=== PATIENT | male | born 1970 | race American Indian/Alaskan Native ===

== ENCOUNTER 2017-02-06 02:48 | Inpatient (IN) | payer MEDICARE, OTHER ==
--- NOTE | 2017-02-06 02:51 | ED PDOC ---
Arrival/HPI - General Time Seen by Provider: 02/06/17 02:50 Historian: Patient, Other (transfer charts ) - History of Present Illness Narrative History of Present Illness (Text): 02/06/17 02:52 Harlan Floyd is a 46 year old female who presents to the emergency department from [facility] via ambulance for admission to the hospital for depression and suicidal ideation. Currently states she still feels depression, but denies any suicidal ideation. Denies any other somatic complaints. Symptom Onset: Gradual Symptom Course: Unchanged Activities at Onset: Light Past Medical History - Provider Review Nursing Documentation Reviewed: Yes Family/Social History - Physician Review Nursing Documentation Reviewed: Yes Family/Social History: No Known Family HX Allergies/Home Meds Allergies/Adverse Reactions: Allergies No Known Allergies Allergy (Verified 02/06/17 02:58) Home Medications: Home Meds Medication Instructions Recorded Confirmed No Known Home Med 02/06/17 02/06/17 Review of Systems - Physician Review All systems were reviewed & negative as marked: Yes - Review of Systems Constitutional: Normal. absent: Fatigue, Fevers Respiratory: Normal. absent: SOB, Cough, Sputum Cardiovascular: Normal. absent: Chest Pain Gastrointestinal: Normal. absent: Abdominal Pain, Diarrhea, Nausea, Vomiting Genitourinary Female: Normal Psychiatric: Depression. absent: Suicidal Ideation Physical Exam Vital Signs Reviewed: Yes Vital Signs Temp Pulse Resp BP Pulse Ox 02/06/17 02:58 98.0 F 57 L 18 99/52 L 96 Temperature: Afebrile Blood Pressure: Normal Pulse: Regular Respiratory Rate: Normal Appearance: Positive for: Well-Appearing, Non-Toxic, Comfortable Pain Distress: None Mental Status: Positive for: Alert and Oriented X 3 - Systems Exam Head: Present: Atraumatic, Normocephalic Pupils: Present: PERRL Conjunctiva: Present: Normal Respiratory/Chest: Present: Clear to Auscultation, Good Air Exchange. No: Respiratory Distress, Accessory Muscle Use Cardiovascular: Present: Regular Rate and Rhythm, Normal S1, S2. No: Murmurs Abdomen: Present: Normal Bowel Sounds. No: Tenderness, Distention, Peritoneal Signs Upper Extremity: Present: Normal Inspection. No: Cyanosis, Edema Lower Extremity: Present: Normal Inspection. No: Edema Neurological: Present: GCS=15, CN II-XII Intact, Speech Normal Skin: Present: Warm, Dry, Normal Color. No: Rashes Psychiatric: Present: Alert, Oriented x 3, Depressed Mood. No: Suicidal Ideation, Homicidal Ideation Medical Decision Making ED Course and Treatment: 02/06/17 03:01 Impression: A 46 year old female who presents to the emergency department from [facility] for psychiatric admission. Patient medically cleared here in emergency department for transfer. Progress Notes: Will admit patient under Dr. Owen's service. - Scribe Statement The provider has reviewed the documentation as recorded by the Sarai Gonzales Provider Attestation: All medical record entries made by the Sarai were at my direction and personally dictated by me. I have reviewed the chart and agree that the record accurately reflects my personal performance of the history, physical exam, medical decision making, and the department course for this patient. I have also personally directed, reviewed, and agree with the discharge instructions and disposition. Disposition/Present on Arrival - Present on Arrival Any Indicators Present on Arrival: No History of DVT/PE: No History of Uncontrolled Diabetes: No Urinary Catheter: No History of Decub. Ulcer: No History Surgical Site Infection Following: None - Disposition Have Diagnosis and Disposition been Completed?: Yes Diagnosis: Depression Disposition: HOSPITALIZED Disposition Time: 02:58 Patient Plan: Admission Patient Problems: Current Active Problems Problem Status Onset Depression Acute Condition: STABLE
[2017-02-06 03:12] VITALS: O2SAT 96
[2017-02-06] MEDS ORDERED: Magnesium Hydroxide Susp 30 ml UD PO PRN (03:43)
[2017-02-06] MEDS ORDERED: Alum-Mag Hydrox-Simethicone Susp (30 mL) PO PRN (03:43)
--- NOTE | 2017-02-06 04:17 | PCM.BM ---
<Doron Tee - Last Filed: 02/06/17 04:16> Treatment Plan Problems - Problems identified on initial assessmt Hopelessness Date Initiated: 02/06/17 Time Initiated: 04:17 Assessment reference: NA Status: Active Priority: 1 Worthlessness Date Initiated: 02/06/17 Time Initiated: 04:16 Assessment reference: NA Status: Active Priority: 2 Anxiety Date Initiated: 02/06/17 Time Initiated: 04:16 Assessment reference: NA Status: Active Priority: 3 Nutrition: More than body requirements Date Initiated: 02/06/17 Time Initiated: 04:16 Assessment reference: NA Status: Active Priority: 4 Treatment assets and liabiliti Patient Assests: cooperative, ADL independent, negotiates basic needs, cognitively intact Patient Liabilities: financial problems, poor support system - Milieu Protocol Maintain good personal hygiene: daily Encourage regular showers Maintain personal safety: every shift Educate patient to report safety concerns to staff, every shift Monitor environment for contraband/sharps Medication safety: Monitor for expected outcome, potential side effects: every shift, Assess barriers to learning: every shift, Assess readiness for medication education: every shift Discharge/Continuing Care - Education Needs Education Needs: Patient Medication, Patient Diagnosis/Disease Process, Patient Coping Skills, Patient Nutrition - Discharge Discharge Criteria: Tolerates medication w/o severe side effects <Doris Don - Last Filed: 02/06/17 15:45> Family Contact Family involvement: Famliy/SO not involved <Lexie Jolley - Last Filed: 02/06/17 17:54> - Diagnosis (1) Bipolar II disorder Status: Acute Interventions: 02/06/17 17:53 Psychoeducation Psychopharmacology/adjustment of medications as needed/ monitoring possible side effects Monitor blood level of mood stabilizers Evaluate pt on daily basis Compliance with medications and follow up appointments Suicide and homicide risk assessment and prevention, coping strategies, safety plan Relapse prevention Reduction of symptoms Improve functional status Family intervention As outpatient: cognitive behavioral therapy (2) Alcohol abuse Status: Acute Interventions: 02/06/17 17:53 Monitoring withdrawal symptoms Medical detoxification Pharmacotherapy for alcohol/benzos/opioid dependence Maintaining sobriety Relapse prevention Possible rehabilitation Motivational interviewing 12-step programs: AA meetings (3) NANCY (generalized anxiety disorder) Status: Acute Interventions: 02/06/17 17:53 Psychoeducation Psychopharmacology/adjustment of medications as needed/ monitoring possible side effects Evaluate pt on daily basis Compliance with medications and follow up appointments Suicide and homicide risk assessment and prevention, coping strategies, safety plan Reduction of symptoms Relaxation techniques and breathing exercises Improve functional status Family intervention As outpatient: cognitive behavioral therapy (4) Mood disorder with depressive features due to general medical condition Status: Acute Interventions: 02/06/17 17:54 Pt will be seen by medical team as needed Medications will be confirmed and resumed Additional consultation by specialists as needed Lab work as needed (CBC, CMP, TSH, free T4, UA, Urine test for females as needed) CXR as needed EKG Physical therapy valuation as needed
[2017-02-06 07:30] VITALS: RESP 20
[2017-02-06 07:53] LABS: CHOLESTEROL 97 mg/dL (130-200); GLUCOSE,FASTING 80 mg/dL (65-110)
[2017-02-06 08:10] LABS: FREE T4 1.35 ng/dL (0.78-2.19)
[2017-02-06 08:24] LABS: THYROID STIMULATING HORMONE 0.86 mIU/mL (0.46-4.68)
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
[2017-02-06] MEDS: Naproxen 275 mg Tab PO SCH (17:38)
[2017-02-06] MEDS: Pantoprazole 40 mg EC Tab PO SCH (17:39)
[2017-02-07 07:48] VITALS: BP 93/56; PULSE 50; TEMP 97.6
[2017-02-07] MEDS: Pantoprazole 40 mg EC Tab PO SCH ×2 (09:47→17:58)
[2017-02-07] MEDS: Naproxen 275 mg Tab PO SCH ×3 (09:47→17:58)
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
--- NOTE | 2017-02-07 18:23 | CP.PCM.CON ---
Past Patient History - Past Social History Smoking Status: Former Smoker - CARDIAC Hx Cardiac Disorders: No - PULMONARY Hx Respiratory Disorders: No - NEUROLOGICAL Hx Neurological Disorder: No - HEENT Hx HEENT Problems: No - RENAL Hx Chronic Kidney Disease: No - HEMATOLOGICAL/ONCOLOGICAL Hx Blood Disorders: No - INTEGUMENTARY Hx Dermatological Problems: No - MUSCULOSKELETAL/RHEUMATOLOGICAL Hx Musculoskeletal Disorders: No Hx Back Pain: Yes - GASTROINTESTINAL Other/Comment: cirrhosis - GENITOURINARY/GYNECOLOGICAL Hx Genitourinary Disorders: No - PSYCHIATRIC Hx Depression: Yes Hx Substance Use: No - SURGICAL HISTORY Hx Surgeries: Yes Hx Appendectomy: Yes - ANESTHESIA Hx Anesthesia: Yes Meds Allergies/Adverse Reactions: Allergies Allergy/AdvReac Type Severity Reaction Status Date / Time No Known Allergies Allergy Verified 02/06/17 02:58 - Medications Medications: Current Medications Acetaminophen (Tylenol 325mg Tab) 650 mg PO Q4 PRN PRN Reason: Pain, Mild (1-3) Al Hydrox/Mg Hydrox/Simethicone (Maalox Plus 30 Ml) 30 ml PO DAILY PRN PRN Reason: Upset Stomach Atorvastatin Calcium (Lipitor) 40 mg PO DIN [facility] Last Admin: 02/06/17 17:39 Dose: 40 mg Fluoxetine HCl (Prozac) 10 mg PO DAILY [facility] Last Admin: 02/07/17 09:47 Dose: 10 mg Gabapentin (Neurontin) 300 mg PO TID [facility] PRN Reason: Protocol Last Admin: 02/07/17 13:38 Dose: 300 mg Lorazepam (Ativan) 0.5 mg PO TID PRN; Protocol PRN Reason: Anxiety Magnesium Hydroxide (Milk Of Magnesia) 30 ml PO DAILY PRN PRN Reason: Constipation Mirtazapine (Remeron) 15 mg PO HS [facility] Last Admin: 02/06/17 22:28 Dose: 15 mg Naproxen (Anaprox) 275 mg PO TID [facility] Last Admin: 02/07/17 13:38 Dose: 275 mg Pantoprazole Sodium (Protonix Ec Tab) 40 mg PO 0600,1600 [facility] Last Admin: 02/07/17 09:47 Dose: 40 mg Risperidone (Risperdal Tab) 0.5 mg PO AMHS [facility] PRN Reason: Protocol Last Admin: 02/07/17 09:47 Dose: 0.5 mg Ziprasidone (Geodon Cap) 20 mg PO Q6H PRN; Protocol PRN Reason: Agitation Ziprasidone (Geodon Inj) 20 mg IM Q6H PRN; Protocol PRN Reason: Agitation Results - Vital Signs Recent Vital Signs: Last Vital Signs Temp 97.6 F 02/07/17 07:47 Pulse 50 L 02/07/17 07:47 Resp 20 02/07/17 07:47 BP 93/56 L 02/07/17 07:47 Pulse Ox 96 02/06/17 02:58
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
== END 2017-02-07 19:40 | disposition short-term general hospital (02) | DRG 885 ==
LOC: EDSEX → ED 02:48 → ERH 02:56 → PSYC 03:35
PROVIDERS: ADMIT Psychiatry & Neurology Psychiatry; ATTEND Psychiatry & Neurology Psychiatry
PROC: GZ3ZZZZ Medication Management (ICD-10-PCS; principal; 2017-02-06)
DX: F31.81 Bipolar II disorder (principal); D61.818 Other pancytopenia; G61.0 Guillain-Barre syndrome; R45.851 Suicidal ideations; E27.40 Unspecified adrenocortical insufficiency; F06.30 Mood disorder due to known physiological condition, unspecified; K70.30 Alcoholic cirrhosis of liver without ascites; F10.20 Alcohol dependence, uncomplicated; F41.0 Panic disorder [episodic paroxysmal anxiety]; R00.1 Bradycardia, unspecified; F41.1 Generalized anxiety disorder; M17.11 Unilateral primary osteoarthritis, right knee; Z87.891 Personal history of nicotine dependence

== ENCOUNTER 2017-02-07 19:32 | Inpatient (IN) | payer MEDICARE, OTHER ==
[2017-02-07 19:41] VITALS: BMI 42.3
[2017-02-07] MEDS ORDERED: Sodium Chloride 0.9% 500 ML IV STA (19:55)
--- NOTE | 2017-02-07 20:09 | ED PDOC ---
Arrival/HPI - General Chief Complaint: Dizziness/Lightheaded Time Seen by Provider: 02/07/17 19:40 - History of Present Illness Narrative History of Present Illness (Text): 02/07/17 20:06 46 yo mlae, hx of depression, alcoholic cirrhosis, GBS, presents from pysch floor for weakness/dizziness from pysch floor. pt poor historian, but was transfer from another institution for depression, admitted yesterday, pt found to be mildly hypotensive on pysch floor transfered to emergency room. pt reports "weakness that feels like his previous guillian barre" pt denies any new complaints of pain, specific weakness, fevers, headache, n/v, or other complaints 02/08/17 01:51 Past Medical History - Provider Review Nursing Documentation Reviewed: Yes - Reproductive Currently : No - Cardiac Hx Cardiac Disorders: No - Pulmonary Hx Respiratory Disorders: No - Neurological Hx Neurological Disorder: No - HEENT Hx HEENT Disorder: No - Renal Hx Renal Disorder: No - Hematological/Oncological Hx Blood Disorders: No - Integumentary Hx Dermatological Disorder: No - Musculoskeletal/Rheumatological Hx Musculoskeletal Disorders: No Hx Back Pain: Yes - Gastrointestinal Other/Comment: cirrhosis - Genitourinary/Gynecological Hx Genitourinary Disorders: No - Psychiatric Hx Depression: Yes Hx Substance Use: No - Surgical History Hx Appendectomy: Yes - Anesthesia Hx Anesthesia: Yes Family/Social History Family/Social History: Unknown Family HX Smoking Status: Former Smoker Hx Alcohol Use: Yes Hx Substance Use: No Allergies/Home Meds Allergies/Adverse Reactions: Allergies No Known Allergies Allergy (Verified 02/06/17 02:58) Home Medications: Home Meds Medication Instructions Recorded Confirmed Acetaminophen [Non-Aspirin Pain 650 mg PO Q4H PRN 02/07/17 02/07/17 Relief] Aluminum Hydroxide/Magnesium H 30 ml PO DAILY PRN 02/07/17 02/07/17 [Maalox 30 ml] Atorvastatin [Lipitor] 40 mg PO DIN 02/07/17 02/07/17 FLUoxetine [Prozac] 10 mg PO DAILY 02/07/17 02/07/17 Gabapentin [Neurontin] 300 mg PO TID 02/07/17 02/07/17 LORazepam [Ativan] 0.5 mg PO TID PRN 02/07/17 02/07/17 Magnesium Hydroxide [Milk Of 30 ml PO DAILY PRN 02/07/17 02/07/17 Magnesia] Mirtazapine [Remeron] 15 mg PO HS 02/07/17 02/07/17 Naproxen [Anaprox] 275 mg PO TID 02/07/17 02/07/17 Pantoprazole [Protonix] 40 mg PO 0600,1600 02/07/17 02/07/17 Risperidone [Risperdal] 0.5 mg PO AMHS 02/07/17 02/07/17 Ziprasidone [Geodon] 20 mg PO Q6H PRN 02/07/17 02/07/17 Review of Systems - Review of Systems Constitutional: Normal Eyes: Normal ENT: Normal Respiratory: Normal Cardiovascular: Normal Gastrointestinal: Normal Genitourinary Male: Normal Musculoskeletal: Normal Skin: Normal Neurological: Dizziness, Other (generalized weakness) Endocrine: Normal Hemo/Lymphatic: Normal Psychiatric: Normal Physical Exam Vital Signs Temp Pulse Resp BP Pulse Ox 02/07/17 21:40 55 L 18 95/52 L 99 02/07/17 19:40 97.9 F 55 L 18 95/48 L 97 Temperature: Afebrile Blood Pressure: Normal Pulse: Regular Respiratory Rate: Normal Appearance: Positive for: Well-Appearing, Non-Toxic, Comfortable Pain Distress: None Mental Status: Positive for: Alert and Oriented X 3 - Systems Exam Head: Present: Atraumatic, Normocephalic Pupils: Present: PERRL Extroacular Muscles: Present: EOMI Conjunctiva: Present: Normal Mouth: Present: Moist Mucous Membranes Neck: Present: Normal Range of Motion Respiratory/Chest: Present: Clear to Auscultation, Good Air Exchange. No: Respiratory Distress, Accessory Muscle Use Cardiovascular: Present: Regular Rate and Rhythm, Normal S1, S2. No: Murmurs Abdomen: Present: Normal Bowel Sounds. No: Tenderness, Distention, Peritoneal Signs Back: Present: Normal Inspection Upper Extremity: Present: Normal Inspection. No: Cyanosis, Edema Lower Extremity: Present: Normal Inspection. No: Edema Neurological: Present: GCS=15, CN II-XII Intact, Speech Normal, Normal Sensory Function, Normal Cerebellar Funct, Other ((+)4/5 lower extremity) Skin: Present: Warm, Dry, Normal Color. No: Rashes Psychiatric: Present: Alert, Oriented x 3, Normal Insight, Normal Concentration Medical Decision Making ED Course and Treatment: 02/07/17 20:09 ro cardiac, metabolic, infectious, GBS etiology ekg sinus alisson [address] t wave changes 02/07/17 21:[address] Ann, who is aware and agrees with plan. requests dr valadez on consult. dr valadez advises dr diaz is covering. dr diaz recommends LP. pt consented. lp performed. 02/07/17 22:[address] Arora, covering icu, states normal NIF, FVC. can be put on tele. dr ann and dr diaz aware. 02/08/17 01:51 - Lab Interpretations Microbiology Results: Microbiology Results 02/07/17 22:50 Cerebral Spinal Fluid Gram Stain - Final 02/07/17 22:50 Cerebral Spinal Fluid CSF Culture - Preliminary NO GROWTH AFTER 24 HOURS 02/07/17 23:12 Urine,Clean Catch Urine Culture - Final No Growth (<1,000 CFU/ML) Lab Results: 02/07/17 20:19 02/07/17 20:19 Lab Results 02/07/17 22:50: Fluid Type Spinal fluid, CSF Volume 2 H, CSF Appearance Clear/ colorless, CSF WBC 2.0, CSF RBC 4.0 H, CSF Total Cell Counted TEST NOT PERFORMED , CSF Monos/Macrophages TEST NOT PERFORMED, CSF Comment Clear 02/07/17 22:50: CSF Glucose 50, CSF Total Protein 51.0 02/07/17 20:20: Urine Color Yellow, Urine Appearance Clear, Urine pH 6.5, Ur Specific [place] <= 1.005, Urine Protein Negative, Urine Glucose (UA) Negative, Urine Ketones Negative, Urine Blood Negative, Urine Nitrate Negative, Urine Bilirubin Negative, Urine Urobilinogen 1.0 H, Ur Leukocyte Esterase Trace H, Urine RBC Negative, Urine WBC 0 - 2, Ur Epithelial Cells 0 - 2 02/07/17 20:19: pO2 40, VBG pH 7.36, VBG pCO2 48.0, VBG HCO3 27.1, VBG Total CO2 28.6 H, VBG O2 Sat (Calc) 76.9 H, VBG Base Excess 1.0, VBG Potassium 4.4, Sodium 139.0, Chloride 110.0 H, Glucose 95, Lactate 1.0, FiO2 21.0, Venous Blood Potassium 4.4 02/07/17 20:19: PT 13.4 H, INR 1.24 H, APTT 32.1 H 02/07/17 20:19: WBC 2.1 L*, RBC 3.76, Hgb 12.0 L, Hct 34.9 L, MCV 92.8, MCH 31.9 , MCHC 34.4, RDW 15.5 H, Plt Count 99 L, MPV 10.8, Gran % 49.3 L, Lymph % (Auto ) 33.0, Humphreys % (Auto) 10.0 H, Eos % (Auto) 7.2 H, Baso % (Auto) 0.5, Gran # 1.03 L, Lymph # 0.7 L, Humphreys # 0.2, Eos # 0.2, Baso # 0.01 02/07/17 20:19: Sodium 140, Chloride 109 H, Potassium 4.0, Carbon Dioxide 27, Anion Gap 8 L, BUN 11, Creatinine 0.7, Est GFR ( Amer) > 60, Est GFR (Non -Af Amer) > 60, Random Glucose 88, Calcium 8.5, Magnesium 1.7, Total Bilirubin 1.3, AST 46, ALT 23, Alkaline Phosphatase 60, Lactate Dehydrogenase 481, Total Creatine Kinase 90, Troponin I < 0.01, Total Protein 6.3, Albumin 2.8 L, Globulin 3.5, Albumin/Globulin Ratio 0.8 L - RAD Interpretation Radiology Orders: 02/07/17 19:54 HEAD W/O CONTRAST [CT] Stat CHEST PORTABLE [RAD] Stat - Medication Orders Current Medication Orders: Acetaminophen (Tylenol 325mg Tab) 650 mg PO Q4H PRN PRN Reason: Pain, Mild (1-3) Al Hydrox/Mg Hydrox/Simethicone (Maalox Plus 30 Ml) 30 ml PO DAILY PRN PRN Reason: .upset stomach Fludrocortisone Acetate (Florinef) 0.1 mg PO BID [facility] Last Admin: 02/09/17 10:11 Dose: 0.1 mg Fluoxetine HCl (Prozac) 10 mg PO DAILY [facility] Last Admin: 02/09/17 10:11 Dose: 10 mg Furosemide (Lasix) 40 mg PO DAILY [facility] Last Admin: 02/09/17 10:11 Dose: 40 mg Gabapentin (Neurontin) 300 mg PO TID [facility] PRN Reason: Protocol Last Admin: 02/09/17 10:11 Dose: 300 mg Sodium Chloride (Sodium Chloride 0.9%) 1,000 mls @ 100 mls/hr IV .Q10H [facility] Last Admin: 02/08/17 21:00 Dose: 100 mls/hr Lactulose (Enulose) 20 gm PO QID [facility] Last Admin: 02/09/17 10:11 Dose: 20 gm Lorazepam (Ativan) 0.5 mg PO TID PRN; Protocol PRN Reason: Anxiety Magnesium Hydroxide (Milk Of Magnesia) 30 ml PO DAILY PRN PRN Reason: Constipation Midodrine (Proamatine) 10 mg PO BID [facility] Last Admin: 02/09/17 10:10 Dose: 10 mg Mirtazapine (Remeron) 15 mg PO HS [facility] Last Admin: 02/08/17 21:57 Dose: 15 mg Ondansetron HCl (Zofran Tab) 4 mg PO Q8H PRN PRN Reason: Nausea/Vomiting Last Admin: 02/08/17 05:39 Dose: 4 mg Pantoprazole Sodium (Protonix Ec Tab) 40 mg PO 0600,1600 [facility] Last Admin: 02/09/17 06:49 Dose: 40 mg Spironolactone (Aldactone) 25 mg PO BID [facility] Last Admin: 02/09/17 10:11 Dose: Not Given Non-Admin Reason: BP Parameters Not Met Ziprasidone (Geodon Cap) 20 mg PO Q6H PRN; Protocol PRN Reason: Agitation Discontinued Medications Heparin Sodium (Porcine) (Heparin) 5,000 units SC Q8 [facility] PRN Reason: Protocol Last Admin: 02/08/17 05:36 Dose: 5,000 units Sodium Chloride (Sodium Chloride 0.9%) 500 mls @ 999 mls/hr IV .Q31M STA Stop: 02/07/17 20:25 Last Admin: 02/07/17 20:18 Dose: 999 mls/hr Sodium Chloride (Sodium Chloride 0.9%) 1,000 mls @ 999 mls/hr IV .Q1H1M STA Stop: 02/08/17 00:59 Last Admin: 02/08/17 00:06 Dose: 999 mls/hr Sodium Chloride (Sodium Chloride 0.9%) 1,000 mls @ 150 mls/hr IV .Q6H40M [facility] Last Admin: 02/08/17 02:20 Dose: 150 mls/hr Lidocaine HCl (Lidocaine 1% (20ml)) Confirm Administered Dose 20 ml .ROUTE .STK- MED ONE Stop: 02/07/17 22:49 Lorazepam (Ativan) 0.5 mg IVP ONCE ONE PRN Reason: Protocol Stop: 02/07/17 22:40 Last Admin: 02/07/17 22:47 Dose: 0.5 mg Lorazepam (Ativan) Confirm Administered Dose 2 mg .ROUTE .STK-MED ONE Stop: 02/07/17 22:45 Last Admin: 02/07/17 22:47 Dose: Naproxen (Anaprox) 275 mg PO TID [facility] Last Admin: 02/08/17 09:42 Dose: 275 mg Disposition/Present on Arrival - Present on Arrival Any Indicators Present on Arrival: No History of DVT/PE: No History of Uncontrolled Diabetes: No Urinary Catheter: No History of Decub. Ulcer: No History Surgical Site Infection Following: None - Disposition Have Diagnosis and Disposition been Completed?: Yes Diagnosis: Weakness, Depression Disposition: HOSPITALIZED Disposition Time: 12:00 Condition: GOOD Critical Care Time - Critical Care Note Total Time (in mins): 45 Documented critical care: time excludes all time spent performing seperately billable procedures.
[2017-02-07 20:24] LABS: BASO # 0.01 K/mm3 (0.0-2.0); BASO % 0.5 % (0.0-3.0); EOS # 0.2 (0.0-0.7); EOS % 7.2 % (1.5-5.0); GRAN # 1.03 (1.4-6.5); GRAN % 49.3 % (50.0-68.0); HEMATOCRIT 34.9 % (42.0-52.0); LYMPH # 0.7 (1.2-3.4); MEAN CELL VOLUME 92.8 fl (80.0-105.0); MEAN CORPUSCULAR HEMOGLOBIN 31.9 pg (25.0-35.0); MEAN CORPUSCULAR HGB CONC 34.4 g/dl (31.0-37.0); MEAN PLATELET VOLUME 10.8 fl (7.0-11.0); MONO # 0.2 (0.1-0.6); RED CELL DISTRIBUTION WIDTH 15.5 % (11.5-14.5)
[2017-02-07 20:26] LABS: VENOUS BLOOD PH 7.36 (7.32-7.43)
[2017-02-07 20:31] LABS: PH,URINE 6.5 (4.7-8.0); URINE APPEARANCE CLEAR (CLEAR); URINE BILIRUBIN NEGATIVE (NEGATIVE); URINE BLOOD NEGATIVE (NEGATIVE); URINE COLOR YELLOW (YELLOW); URINE GLUCOSE (UA) NEGATIVE (NEGATIVE); URINE KETONE NEGATIVE (NEGATIVE); URINE LEUKOCYTE ESTERASE TRACE Leu/uL (NEGATIVE); URINE PROTEIN NEGATIVE mg/dL (<30 mg/dL)
[2017-02-07 20:33] LABS: INR 1.24 (0.93-1.08); PARTIAL THROMBOPLASTIN TIME 32.1 Seconds (23.7-30.8)
[2017-02-07 20:34] LABS: ALB/GLOB RATIO 0.8 (1.1-1.8); ALKALINE PHOSPHATASE 60 U/L (38-126); ALT/SGPT 23 U/L (7-56); AST/SGOT 46 U/L (17-59); BILIRUBIN,TOTAL 1.3 mg/dL (0.2-1.3); BLOOD UREA NITROGEN 11 mg/dL (7-21); CALCIUM 8.5 mg/dL (8.4-10.5); CARBON DIOXIDE 27 mmol/L (21-33); CHLORIDE 109 mmol/L (98-107); GFR AFRICAN-AMERICAN > 60; GLUCOSE,RANDOM 88 mg/dL (70-110); MAGNESIUM 1.7 mg/dL (1.7-2.2); SODIUM 140 mmol/L (132-148); TOTAL PROTEIN 6.3 g/dL (5.8-8.3)
[2017-02-07 20:35] LABS: WHITE BLOOD COUNT 2.1 10^3/ul (4.5-11.0)
[2017-02-07 20:38] LABS: URINE EPITHELIAL CELLS 0 - 2 /hpf (0-5); URINE RBC NEGATIVE /hpf (0-2); URINE WBC 0 - 2 /hpf (0-6)
[2017-02-07 20:48] LABS: TROPONIN I < 0.01 ng/mL
--- NOTE | 2017-02-07 21:14 | CT ---
EXAM: CT Head Without Intravenous Contrast EXAM DATE/TIME: 02/07/2017 7:54 PM CLINICAL HISTORY: 46 years old, male; Pain; Headache; Headache not specified; Prior surgery; Surgery date: 6+ months; Surgery type: Genesis lt side of head; Additional info: Dizziness TECHNIQUE: Axial computed tomography images of the head/brain without intravenous contrast. All CT scans at this facility use one or more dose reduction techniques, viz.: automated exposure control; ma/kV adjustment per patient size (including targeted exams where dose is matched to indication; i.e. head); or iterative reconstruction technique. COMPARISON: There are no prior studies for comparison. FINDINGS: Brain: Ventricles are normal in size and configuration. There is no midline shift. There are no intra-axial or extra-axial mass lesions or areas of hemorrhage. There are no abnormal fluid collections. Alvares-white differentiation is maintained. Ventricles: See above. Bones: Cranial vault is intact. Soft tissues: unremarkable Sinuses: There is no acute sinusitis. Ears and mastoids: Middle ears and mastoids are unremarkable Orbits: Orbital contents are unremarkable. IMPRESSION: No acute intracranial abnormality
[2017-02-07] MEDS ORDERED: Lidocaine 1% Inj (20ml) ONE (22:48)
[2017-02-07 23:14] LABS: FLUID TYPE SPINAL FLUID
[2017-02-07] MEDS ORDERED: Sodium Chloride 0.9% 1,000 ML IV STA (23:59)
[2017-02-08 00:42] LABS: CSF COMMENT CLEAR
--- NOTE | 2017-02-08 01:42 | CP.PCM.HP ---
Addendum entered and electronically signed by ZACKERY BRADLEY DO 02/08/17 03:01 : correction to plan section: CT head showed NO abnormal fluid collection or hemorrhage Original Note: History of Present Illness - History of Present Illness History of Present Illness: cc: weakness and dizziness Mr. Saldana is a 46yo M with PMH GBS, [place]'s, Liver cirrhosis 2/2 ETOH use, bipolar disorder, and depression (w/ prior suicidal attempt and recent suicidal ideations) who presents to ED from psych unit after feeling weak and dizzy x2 days and b/l LE pain and RLE weakness that began this morning. Pt states that initially went to [facility] for feelings of depression, but was transferred here. Pt states that he began feeling weak 2 days ago, and noticed that he was dizzy. Pt states that had episodes of LOC where he wakes up after and doesn't remember how he got there. Denied falls or striking head. Pt also complained of intermittent cp, palpitations, sob w/ exertion, LE swelling, using 3-4 pillows at night but states that he can walk 10 blocks before experiencing sob, memory loss with some vision loss (was worked up at [facility] in [place]), +n/v x1 episode (non-bloody, non- bilious) earlier today after lunch, constipated (last BM yesterday with streaks of blood) and back pain. Pt denied hearing changes, facial droop, slurring of speech, neck pain, abdominal pain, urinary changes. Pt states that he has had 3 similar episodes since he was diagnosed with GBS in September, but none were this bad despite one time almost needing to be intubated. Pt had a bloody vomitus episode before and had EGD done and was told that he had varices and splenomegaly. Pt also states that he has not been taking any of his prescribed medications recently (told to contact his pharm or [facility] who would have the list). Pt states that he had a suicide attempt 10yrs ago after a difficult divorce, but states that currently he is depressed about his social and financial situation. 10-point ROS was reviewed and is otherwise unremarkable. PMH: Guillain-Flatwoods Syndrome (dx 09/2016), Addision's (dx 2y ago), liver cirrhosis w/ esophageal varices, splenomegaly and ?hemorrhoids PsychHx: Bipolar disorder, depression w/ prior suicidal attempt and recent suicidal ideations PSH: appendectomy, spinal fusion, knee surgery Meds: states he doesn't take any of his prescribed meds Pharm: Isai (# [phone]. [facility] [place] Allergies: NKDA SHx: lives alone, last ETOH (2 weeks ago, drinks a lot but could not recall amount), tobacco (1 pk/wk), denied drug use FHx: Dad @ 59yo (Parkinson's dz) and Mom alive w/ alzheimer's dz PMD: Gladis Rivas (# [phone]. [facility]) Present on Admission - Present on Admission Any Indicators Present on Admission: No History of DVT/PE: No History of Uncontrolled Diabetes: No Review of Systems - Review of Systems All systems: reviewed and no additional remarkable complaints except (as per HPI ) Past Patient History - Past Social History Smoking Status: Current Some Days Smoker Alcohol: Occasional (heavy drinking, last drink 2 weeks ago) Drugs: Denies - CARDIAC Hx Cardiac Disorders: No - PULMONARY Hx Respiratory Disorders: No - NEUROLOGICAL Hx Neurological Disorder: Yes (Guillain-Fl[place] Syndrome (September 2016)) - HEENT Hx HEENT Problems: No - RENAL Hx Chronic Kidney Disease: No - ENDOCRINE/METABOLIC Hx Endocrine Disorders: Yes ([place]'s dz ) - HEMATOLOGICAL/ONCOLOGICAL Hx Blood Disorders: Yes Hx Cirrhosis: Yes (2/2 ETOH ) - INTEGUMENTARY Hx Dermatological Problems: No - MUSCULOSKELETAL/RHEUMATOLOGICAL Hx Musculoskeletal Disorders: Yes Hx Back Pain: Yes - GASTROINTESTINAL Hx Gastrointestinal Disorders: Yes Hx Constipation: Yes Hx Esophageal Varices: Yes Other/Comment: cirrhosis - GENITOURINARY/GYNECOLOGICAL Hx Genitourinary Disorders: No - PSYCHIATRIC Hx Psychophysiologic Disorder: Yes Hx Bipolar Disorder: Yes Hx Depression: Yes Hx Substance Use: Yes (ETOH) - SURGICAL HISTORY Hx Surgeries: Yes Hx Appendectomy: Yes Hx Musculoskeletal Surgery: Yes - ANESTHESIA Hx Anesthesia: Yes Hx Anesthesia Reactions: No Hx Malignant Hyperthermia: No Meds Allergies/Adverse Reactions: Allergies Allergy/AdvReac Type Severity Reaction Status Date / Time No Known Allergies Allergy Verified 02/06/17 02:58 Physical Exam - Constitutional Appears: Well, No Acute Distress - Head Exam Head Exam: ATRAUMATIC, NORMAL INSPECTION, NORMOCEPHALIC - Eye Exam Eye Exam: EOMI, Normal appearance, PERRL Pupil Exam: NORMAL ACCOMODATION - ENT Exam ENT Exam: Mucous Membranes Moist, Normal Exam - Neck Exam Neck exam: Positive for: Normal Inspection - Respiratory Exam Respiratory Exam: Clear to Auscultation Bilateral, NORMAL BREATHING PATTERN. absent: Accessory Muscle Use, Rales, Wheezes, Respiratory Distress - Cardiovascular Exam Cardiovascular Exam: Bradycardia, REGULAR RHYTHM, +S1, +S2. absent: Gallop, JVD , Rubs, Systolic Murmur - GI/Abdominal Exam GI & Abdominal Exam: Normal Bowel Sounds, Organomegaly (difficult to assess, but edge of liver felt below rib cage), Soft, Tenderness (mildly in RUQ). absent: Distended, Firm, Guarding, Rigid Additional comments: obese body habitus - Extremities Exam Extremities exam: Positive for: normal inspection. Negative for: calf tenderness, pedal edema - Back Exam Back exam: NORMAL INSPECTION, vertebral tenderness (lumbars). absent: CVA tenderness (L), CVA tenderness (R) - Neurological Exam Neurological exam: Alert, CN II-XII Intact, Motor Sensory Deficit (pt's LE numb to palpation), Oriented x3 - Expanded Neurological Exam Expanded Neurological exam: Protecting the Airway, Tremor (UE b/l) Cranial nerves: EOM's Intact: Normal, Facial P[place]y w/Forehead Movement: Normal , Facial [place]y w/o Forehead Movement: Normal, Facial Sensation: Abnormal Left, Nystagmus: Normal, Tongue Deviation: Normal Cerebellar Function: Finger to Nose: Normal Sensory exam: Lower Extremity Light Touch: Abnormal Left, Abnormal Right, Upper Extremity Light Touch: Abnormal Left, Abnormal Right Neuro motor strength exam: Left Upper Extremity: 5, Right Upper Extremity: 5, Left Lower Extremity: 4, Right Lower Extremity: 3 - Psychiatric Exam Psychiatric exam: Normal Affect, Normal Mood - Skin Skin Exam: Normal Color, Warm Results - Vital Signs Recent Vital Signs: Last Vital Signs Temp 97.9 F 02/07/17 19:40 Pulse 55 L 02/07/17 21:40 Resp 18 02/07/17 21:40 BP 95/52 L 02/07/17 21:40 Pulse Ox 99 02/07/17 21:40 - Labs Result Diagrams: 02/07/17 20:19 02/07/17 20:19 Labs: Laboratory Results - last 24 hr 02/07/17 02/07/17 02/07/17 20:19 20:19 20:19 WBC 2.1 L* RBC 3.76 Hgb 12.0 L Hct 34.9 L MCV 92.8 MCH 31.9 MCHC 34.4 RDW 15.5 H Plt Count 99 L MPV 10.8 Gran % 49.3 L Lymph % (Auto) 33.0 [place] % (Auto) 10.0 H Eos % (Auto) 7.2 H Baso % (Auto) 0.5 Gran # 1.03 L Lymph # 0.7 L [place] # 0.2 Eos # 0.2 Baso # 0.01 PT 13.4 H INR 1.24 H APTT 32.1 H pO2 VBG pH VBG pCO2 VBG HCO3 VBG Total CO2 VBG O2 Sat (Calc) VBG Base Excess VBG Potassium Sodium 140 Chloride 109 H Glucose Lactate FiO2 Potassium 4.0 Carbon Dioxide 27 Anion Gap 8 L BUN 11 Creatinine 0.7 Est GFR ( Amer) > 60 Est GFR (Non-Af Amer) > 60 Random Glucose 88 Calcium 8.5 Magnesium 1.7 Total Bilirubin 1.3 AST 46 ALT 23 Alkaline Phosphatase 60 Lactate Dehydrogenase 481 Total Creatine Kinase 90 Troponin I < 0.01 Total Protein 6.3 Albumin 2.8 L Globulin 3.5 Albumin/Globulin Ratio 0.8 L Venous Blood Potassium Urine Color Urine Appearance Urine pH Ur Specific [place] Urine Protein Urine Glucose (UA) Urine Ketones Urine Blood Urine Nitrate Urine Bilirubin Urine Urobilinogen Ur Leukocyte Esterase Urine RBC Urine WBC Ur Epithelial Cells Fluid Type CSF Volume CSF Appearance CSF WBC CSF RBC CSF Total Cell Counted CSF Monos/Macrophages CSF Comment CSF Glucose CSF Total Protein 02/07/17 02/07/17 02/07/17 20:19 20:20 22:50 WBC RBC Hgb Hct MCV MCH MCHC RDW Plt Count MPV Gran % Lymph % (Auto) [place] % (Auto) Eos % (Auto) Baso % (Auto) Gran # Lymph # [place] # Eos # Baso # PT INR APTT pO2 40 VBG pH 7.36 VBG pCO2 48.0 VBG HCO3 27.1 VBG Total CO2 28.6 H VBG O2 Sat (Calc) 76.9 H VBG Base Excess 1.0 VBG Potassium 4.4 Sodium 139.0 Chloride 110.0 H Glucose 95 Lactate 1.0 FiO2 21.0 Potassium Carbon Dioxide Anion Gap BUN Creatinine Est GFR ( Amer) Est GFR (Non-Af Amer) Random Glucose Calcium Magnesium Total Bilirubin AST ALT Alkaline Phosphatase Lactate Dehydrogenase Total Creatine Kinase Troponin I Total Protein Albumin Globulin Albumin/Globulin Ratio Venous Blood Potassium 4.4 Urine Color Yellow Urine Appearance Clear Urine pH 6.5 Ur Specific [place] <= 1.005 Urine Protein Negative Urine Glucose (UA) Negative Urine Ketones Negative Urine Blood Negative Urine Nitrate Negative Urine Bilirubin Negative Urine Urobilinogen 1.0 H Ur Leukocyte Esterase Trace H Urine RBC Negative Urine WBC 0 - 2 Ur Epithelial Cells 0 - 2 Fluid Type CSF Volume CSF Appearance CSF WBC CSF RBC CSF Total Cell Counted CSF Monos/Macrophages CSF Comment CSF Glucose 50 CSF Total Protein 51.0 02/07/17 22:50 WBC RBC Hgb Hct MCV MCH MCHC RDW Plt Count MPV Gran % Lymph % (Auto) [place] % (Auto) Eos % (Auto) Baso % (Auto) Gran # Lymph # [place] # Eos # Baso # PT INR APTT pO2 VBG pH VBG pCO2 VBG HCO3 VBG Total CO2 VBG O2 Sat (Calc) VBG Base Excess VBG Potassium Sodium Chloride Glucose Lactate FiO2 Potassium Carbon Dioxide Anion Gap BUN Creatinine Est GFR ( Amer) Est GFR (Non-Af Amer) Random Glucose Calcium Magnesium Total Bilirubin AST ALT Alkaline Phosphatase Lactate Dehydrogenase Total Creatine Kinase Troponin I Total Protein Albumin Globulin Albumin/Globulin Ratio Venous Blood Potassium Urine Color Urine Appearance Urine pH Ur Specific [place] Urine Protein Urine Glucose (UA) Urine Ketones Urine Blood Urine Nitrate Urine Bilirubin Urine Urobilinogen Ur Leukocyte Esterase Urine RBC Urine WBC Ur Epithelial Cells Fluid Type Spinal fluid CSF Volume 2 H CSF Appearance Clear/colorless CSF WBC 2.0 CSF RBC 4.0 H CSF Total Cell Counted TEST NOT PERFORMED CSF Monos/Macrophages TEST NOT PERFORMED CSF Comment Clear CSF Glucose CSF Total Protein Assessment & Plan - Assessment and Plan (Free Text) Assessment: 46yo M PMH GBS, [place]'s, liver cirrhosis w/ esophageal varices, splenomegaly and hemorrhoids as well as hx of bipolar dz and depression who presented to ED from psych unit for weakness and dizziness x2 days. Plan: 1. Weakness and dizziness likely 2/2 GBS vs CVA - transfer to tele for closer monitoring - ICU consulted, rec tele monitoring w/ cont puls ox - Ventilation capacity currently 25mL/kg; pt doesn't need intubation at this point, will monitor - respiratory team contacted, no immediate need for inspiratory/expiratory monometer eval - continuous pulse ox monitoring - if pulse ox drops or patient shows any signs of resp failure, intubate to protect airway and upgrade to ICU - currently not requiring any intervention, but if GBS signs worsen, consider IVIG vs plasmapharesis - LP results are normal and not indicating acute demyelinating neuropathy - CT head show abnormal fluid collections or hemorrhage. - CVA unlikely due to negative CT findings, b/l nature of symptoms and absence of facial droop/slurring speech - swallow eval before advancing diet - VS q2x4 then q4 - Neuro checks q2 - PT/OT eval - Neuro consult, recs appreciated 2. hx pancytopenia, asymptomatic - chronic and pt sees Heme outpatient for it - monitor for signs of infection, bleeding or anemia - consider Heme consult if pt's status changes 3. 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 hx bradycardia - currently asymptomatic @ 50's - monitor on tele 5. hx liver cirrhosis, no recent bloody vomitus or melena - monitor for drops H/H or changes in LFT's - consider GI consult if pt's status changes - LFT's currently AST/ALT 46/23, INR 1.24 6. n/v - Zofran PRN 7. hx bipolar dz - restart meds from psych 8. hx depression - pt currently denies suicidal ideations - consider psych consult if pt's status changes CLD pending swallow eval NS 150 PTX/heparin Patient was seen, evaluated and d/w attending, Dr. Ulysses Bradley PGY1 - Date & Time Date: 02/08/17 Time: 01:00
[2017-02-08] MEDS ORDERED: Sodium Chloride 0.9% 1,000 ML IV SCH (02:00)
--- NOTE | 2017-02-08 03:14 | CP.PCM.CON ---
<ZACKERY BRADLEY - Last Filed: 02/08/17 03:15> History of Present Illness - History of Present Illness History of Present Illness: Zackery Robles PGY1 ICU Consult Note for Dr. Arora Mr. Saldana is a 46yo M with PMH GBS, Newport's, Liver cirrhosis 2/2 ETOH use, bipolar disorder, and depression (w/ prior suicidal attempt and recent suicidal ideations) who presents to ED from psych unit after feeling weak and dizzy x2 days and b/l LE pain and RLE weakness that began this morning. Pt states that initially went to [facility] for feelings of depression, but was transferred here. Pt states that he began feeling weak 2 days ago, and noticed that he was dizzy. Pt states that had episodes of LOC where he wakes up after and doesn't remember how he got there. Denied falls or striking head. Pt also complained of intermittent cp, palpitations, sob w/ exertion, LE swelling, using 3-4 pillows at night but states that he can walk 10 blocks before experiencing sob, memory loss with some vision loss (was worked up at [facility] in [place]), +n/v x1 episode (non-bloody, non- bilious) earlier today after lunch, constipated (last BM yesterday with streaks of blood) and back pain. Pt denied hearing changes, facial droop, slurring of speech, neck pain, abdominal pain, urinary changes. Pt states that he has had 3 similar episodes since he was diagnosed with GBS in September, but none were this bad despite one time almost needing to be intubated. Pt had a bloody vomitus episode before and had EGD done and was told that he had varices and splenomegaly. Pt also states that he has not been taking any of his prescribed medications recently (told to contact his pharm or [facility] who would have the list). Pt states that he had a suicide attempt 10yrs ago after a difficult divorce, but states that currently he is depressed about his social and financial situation. 10-point ROS was reviewed and is otherwise unremarkable. PMH: Guillain-Glen Syndrome (dx 09/2016), Addision's (dx 2y ago), liver cirrhosis w/ esophageal varices, splenomegaly and ?hemorrhoids PsychHx: Bipolar disorder, depression w/ prior suicidal attempt and recent suicidal ideations PSH: appendectomy, spinal fusion, knee surgery Meds: states he doesn't take any of his prescribed meds Pharm: Isai (# [phone]. [facility] [place], [place]) Allergies: NKDA SHx: lives alone, last ETOH (2 weeks ago, drinks a lot but could not recall amount), tobacco (1 pk/wk), denied drug use FHx: Dad @ 59yo (Parkinson's dz) and Mom alive w/ alzheimer's dz PMD: Gladis Rob (# [phone]. [facility]) Review of Systems - Review of Systems All systems: reviewed and no additional remarkable complaints except (as per HPI ) Past Patient History - Past Social History Smoking Status: Current Some Days Smoker Alcohol: Occasional (heavy drinking, last drink 2 weeks ago) Drugs: Denies - CARDIAC Hx Cardiac Disorders: No - PULMONARY Hx Respiratory Disorders: No - NEUROLOGICAL Hx Neurological Disorder: Yes (Guillain-Glen Syndrome (September 2016)) - HEENT Hx HEENT Problems: No - RENAL Hx Chronic Kidney Disease: No - ENDOCRINE/METABOLIC Hx Endocrine Disorders: Yes (Nemo's dz ) - HEMATOLOGICAL/ONCOLOGICAL Hx Blood Disorders: Yes Hx Cirrhosis: Yes (2/2 ETOH ) - INTEGUMENTARY Hx Dermatological Problems: No - MUSCULOSKELETAL/RHEUMATOLOGICAL Hx Musculoskeletal Disorders: Yes Hx Back Pain: Yes - GASTROINTESTINAL Hx Gastrointestinal Disorders: Yes Hx Constipation: Yes Hx Esophageal Varices: Yes Other/Comment: cirrhosis - GENITOURINARY/GYNECOLOGICAL Hx Genitourinary Disorders: No - PSYCHIATRIC Hx Psychophysiologic Disorder: Yes Hx Bipolar Disorder: Yes Hx Depression: Yes Hx Substance Use: Yes (ETOH) - SURGICAL HISTORY Hx Surgeries: Yes Hx Appendectomy: Yes Hx Musculoskeletal Surgery: Yes - ANESTHESIA Hx Anesthesia: Yes Hx Anesthesia Reactions: No Hx Malignant Hyperthermia: No Meds Allergies/Adverse Reactions: Allergies Allergy/AdvReac Type Severity Reaction Status Date / Time No Known Allergies Allergy Verified 02/06/17 02:58 - Medications Medications: Current Medications Sodium Chloride (Sodium Chloride 0.9%) 1,000 mls @ 150 mls/hr IV .Q6H40M SHAKEEL Last Admin: 02/08/17 02:20 Dose: 150 mls/hr Physical Exam - Additional Findings Additional findings: - Constitutional Appears: Well, No Acute Distress - Head Exam Head Exam: ATRAUMATIC, NORMAL INSPECTION, NORMOCEPHALIC - Eye Exam Eye Exam: EOMI, Normal appearance, PERRL Pupil Exam: NORMAL ACCOMODATION - ENT Exam ENT Exam: Mucous Membranes Moist, Normal Exam - Neck Exam Neck exam: Positive for: Normal Inspection - Respiratory Exam Respiratory Exam: Clear to Auscultation Bilateral, NORMAL BREATHING PATTERN. absent: Accessory Muscle Use, Rales, Wheezes, Respiratory Distress - Cardiovascular Exam Cardiovascular Exam: Bradycardia, REGULAR RHYTHM, +S1, +S2. absent: Gallop, JVD , Rubs, Systolic Murmur - GI/Abdominal Exam GI & Abdominal Exam: Normal Bowel Sounds, Organomegaly (difficult to assess, but edge of liver felt below rib cage), Soft, Tenderness (mildly in RUQ). absent: Distended, Firm, Guarding, Rigid Additional comments: obese body habitus - Extremities Exam Extremities exam: Positive for: normal inspection. Negative for: calf tenderness, pedal edema - Back Exam Back exam: NORMAL INSPECTION, vertebral tenderness (lumbars). absent: CVA tenderness (L), CVA tenderness (R) - Neurological Exam Neurological exam: Alert, CN II-XII Intact, Motor Sensory Deficit (pt's LE numb to palpation), Oriented x3 - Expanded Neurological Exam Expanded Neurological exam: Protecting the Airway, Tremor (UE b/l) Cranial nerves: EOM's Intact: Normal, Facial Palsey w/Forehead Movement: Normal , Facial Palsey w/o Forehead Movement: Normal, Facial Sensation: Abnormal Left, Nystagmus: Normal, Tongue Deviation: Normal Cerebellar Function: Finger to Nose: Normal Sensory exam: Lower Extremity Light Touch: Abnormal Left, Abnormal Right, Upper Extremity Light Touch: Abnormal Left, Abnormal Right Neuro motor strength exam: Left Upper Extremity: 5, Right Upper Extremity: 5, Left Lower Extremity: 4, Right Lower Extremity: 3 - Psychiatric Exam Psychiatric exam: Normal Affect, Normal Mood - Skin Skin Exam: Normal Color, Warm Results - Vital Signs Recent Vital Signs: Last Vital Signs Temp 97.9 F 02/07/17 19:40 Pulse 55 L 02/07/17 21:40 Resp 18 02/07/17 21:40 BP 95/52 L 02/07/17 21:40 Pulse Ox 99 02/07/17 21:40 - Labs Result Diagrams: 02/07/17 20:19 02/07/17 20:19 Labs: Laboratory Results - last 24 hr 02/07/17 02/07/17 02/07/17 20:19 20:19 20:19 WBC 2.1 L* RBC 3.76 Hgb 12.0 L Hct 34.9 L MCV 92.8 MCH 31.9 MCHC 34.4 RDW 15.5 H Plt Count 99 L MPV 10.8 Gran % 49.3 L Lymph % (Auto) 33.0 Gordon % (Auto) 10.0 H Eos % (Auto) 7.2 H Baso % (Auto) 0.5 Gran # 1.03 L Lymph # 0.7 L Gordon # 0.2 Eos # 0.2 Baso # 0.01 PT 13.4 H INR 1.24 H APTT 32.1 H pO2 VBG pH VBG pCO2 VBG HCO3 VBG Total CO2 VBG O2 Sat (Calc) VBG Base Excess VBG Potassium Sodium 140 Chloride 109 H Glucose Lactate FiO2 Potassium 4.0 Carbon Dioxide 27 Anion Gap 8 L BUN 11 Creatinine 0.7 Est GFR ( Amer) > 60 Est GFR (Non-Af Amer) > 60 Random Glucose 88 Calcium 8.5 Magnesium 1.7 Total Bilirubin 1.3 AST 46 ALT 23 Alkaline Phosphatase 60 Lactate Dehydrogenase 481 Total Creatine Kinase 90 Troponin I < 0.01 Total Protein 6.3 Albumin 2.8 L Globulin 3.5 Albumin/Globulin Ratio 0.8 L Venous Blood Potassium Urine Color Urine Appearance Urine pH Ur Specific [place] Urine Protein Urine Glucose (UA) Urine Ketones Urine Blood Urine Nitrate Urine Bilirubin Urine Urobilinogen Ur Leukocyte Esterase Urine RBC Urine WBC Ur Epithelial Cells Fluid Type CSF Volume CSF Appearance CSF WBC CSF RBC CSF Total Cell Counted CSF Monos/Macrophages CSF Comment CSF Glucose CSF Total Protein 02/07/17 02/07/17 02/07/17 20:19 20:20 22:50 WBC RBC Hgb Hct MCV MCH MCHC RDW Plt Count MPV Gran % Lymph % (Auto) Gordon % (Auto) Eos % (Auto) Baso % (Auto) Gran # Lymph # Gordon # Eos # Baso # PT INR APTT pO2 40 VBG pH 7.36 VBG pCO2 48.0 VBG HCO3 27.1 VBG Total CO2 28.6 H VBG O2 Sat (Calc) 76.9 H VBG Base Excess 1.0 VBG Potassium 4.4 Sodium 139.0 Chloride 110.0 H Glucose 95 Lactate 1.0 FiO2 21.0 Potassium Carbon Dioxide Anion Gap BUN Creatinine Est GFR ( Amer) Est GFR (Non-Af Amer) Random Glucose Calcium Magnesium Total Bilirubin AST ALT Alkaline Phosphatase Lactate Dehydrogenase Total Creatine Kinase Troponin I Total Protein Albumin Globulin Albumin/Globulin Ratio Venous Blood Potassium 4.4 Urine Color Yellow Urine Appearance Clear Urine pH 6.5 Ur Specific [place] <= 1.005 Urine Protein Negative Urine Glucose (UA) Negative Urine Ketones Negative Urine Blood Negative Urine Nitrate Negative Urine Bilirubin Negative Urine Urobilinogen 1.0 H Ur Leukocyte Esterase Trace H Urine RBC Negative Urine WBC 0 - 2 Ur Epithelial Cells 0 - 2 Fluid Type CSF Volume CSF Appearance CSF WBC CSF RBC CSF Total Cell Counted CSF Monos/Macrophages CSF Comment CSF Glucose 50 CSF Total Protein 51.0 02/07/17 22:50 WBC RBC Hgb Hct MCV MCH MCHC RDW Plt Count MPV Gran % Lymph % (Auto) Gordon % (Auto) Eos % (Auto) Baso % (Auto) Gran # Lymph # Gordon # Eos # Baso # PT INR APTT pO2 VBG pH VBG pCO2 VBG HCO3 VBG Total CO2 VBG O2 Sat (Calc) VBG Base Excess VBG Potassium Sodium Chloride Glucose Lactate FiO2 Potassium Carbon Dioxide Anion Gap BUN Creatinine Est GFR ( Amer) Est GFR (Non-Af Amer) Random Glucose Calcium Magnesium Total Bilirubin AST ALT Alkaline Phosphatase Lactate Dehydrogenase Total Creatine Kinase Troponin I Total Protein Albumin Globulin Albumin/Globulin Ratio Venous Blood Potassium Urine Color Urine Appearance Urine pH Ur Specific [place] Urine Protein Urine Glucose (UA) Urine Ketones Urine Blood Urine Nitrate Urine Bilirubin Urine Urobilinogen Ur Leukocyte Esterase Urine RBC Urine WBC Ur Epithelial Cells Fluid Type Spinal fluid CSF Volume 2 H CSF Appearance Clear/colorless CSF WBC 2.0 CSF RBC 4.0 H CSF Total Cell Counted TEST NOT PERFORMED CSF Monos/Macrophages TEST NOT PERFORMED CSF Comment Clear CSF Glucose CSF Total Protein Assessment & Plan - Assessment and Plan (Free Text) Assessment: 46yo M PMH GBS, Newport's, liver cirrhosis w/ esophageal varices, splenomegaly and hemorrhoids as well as hx of bipolar dz and depression who presented to ED from psych unit for weakness and dizziness x2 days, and evaluated by ICU per consult. Weakness and dizzines likely 2/2 GBS vs stroke vs infectious vs hemorrhagic. CT head showed no abnormal fluid collections or hemorrhage. Pt not displaying any facial palsy/drooping, slurring of speech or unilateral weakness making CVA unlikely. Regarding GBS diagnosis, pt currently protecting airway with adequate ventilation and jaw muscles. functional ventilation capacity currently 25cc/kg which is >20cc/kg recommended for elective intubation, NIF is also adequate per communication with respiratory team. Patient is hypotensive in 90's/50's with HR 50's, but is asymptomatic and s/p 1.5L boluses, cont to rehydrate @ 150cc/hr and monitor for changes. At this point, pt doesn't require ICU level of care, and we recommend patient to be placed on tele with CONTINUOUS PULSE Ox monitoring. If patient desats or status changes, please consider intubating and getting ICU eval. LP is also not significant. For now, pt will be on cont pulse ox, tele monitoring, VS and Neuro checks q2H, PT/OT eval, and neuro consult will be placed. Pt currently not requiring any intervention, but if GBS signs worsen, consider IVIG vs plasmapharesis. Will sign off at this time. please re-consult if status of pt changes. Thank you for consult. Zackery Bradley PGY1 Dr. Arora, Attending Physician - Date & Time Date: 02/08/17 Time: 03:28 <Bryon Arora Q - Last Filed: 02/08/17 04:09> Meds - Medications Medications: Current Medications Acetaminophen (Tylenol 325mg Tab) 650 mg PO Q4H PRN PRN Reason: Pain, Mild (1-3) Al Hydrox/Mg Hydrox/Simethicone (Maalox Plus 30 Ml) 30 ml PO DAILY PRN PRN Reason: .upset stomach Atorvastatin Calcium (Lipitor) 40 mg PO DIN SHAKEEL Fluoxetine HCl (Prozac) 10 mg PO DAILY SHAKEEL Gabapentin (Neurontin) 300 mg PO TID SHAKEEL PRN Reason: Protocol Heparin Sodium (Porcine) (Heparin) 5,000 units SC Q8 SHAKEEL PRN Reason: Protocol Sodium Chloride (Sodium Chloride 0.9%) 1,000 mls @ 150 mls/hr IV .Q6H40M [facility] Last Admin: 02/08/17 02:20 Dose: 150 mls/hr Lorazepam (Ativan) 0.5 mg PO TID PRN; Protocol PRN Reason: Anxiety Magnesium Hydroxide (Milk Of Magnesia) 30 ml PO DAILY PRN PRN Reason: Constipation Mirtazapine (Remeron) 15 mg PO HS SHAKEEL Naproxen (Anaprox) 275 mg PO TID SHAKEEL Ondansetron HCl (Zofran Tab) 4 mg PO Q8H PRN PRN Reason: Nausea/Vomiting Pantoprazole Sodium (Protonix Ec Tab) 40 mg PO 0600,1600 SHAKEEL Risperidone (Risperdal Tab) 0.5 mg PO AMHS SHAKEEL PRN Reason: Protocol Ziprasidone (Geodon Cap) 20 mg PO Q6H PRN; Protocol PRN Reason: Agitation Results - Vital Signs Recent Vital Signs: Last Vital Signs Temp 97.9 F 02/07/17 19:40 Pulse 55 L 02/07/17 21:40 Resp 18 02/07/17 21:40 BP 95/52 L 02/07/17 21:40 Pulse Ox 99 02/07/17 21:40 - Labs Result Diagrams: 02/07/17 20:19 02/07/17 20:19 Attending/Attestation - Attestation I have personally seen and examined this patient.: Yes I have fully participated in the care of the patient.: Yes I have reviewed all pertinent clinical information: Yes Notes (Text): 02/08/17 04:04 I agree with the above mentioned note and exam with the addition/exception of the followin46 y/o male with a PMHx alcoholic liver cirrhosis, bipolar, depression, nemo' s disease and Guillian-Glen syndrome (s/p treatment with IVIG in 09/2016) transferred from psych unit due to complaints of lower extremity weakness. Patient was examined and does appear to have right lower extremity weakness and paresthesia's which have been going on for the past few days. Patient was assessed from an ICU perspective given his history of GBS. Patient was found to have an adequate vital capacity, cough reflex, no bulbar palsy, adequate facial nerve sensation as well as an LP which is fairly normal. GBS appears unlikely at this time, and in the event that this may be GBS it appears very mild without any respiratory involvement. At this time we have recommended he be admitted to the telemetry floor with continuous pulse oximetry monitoring and use of an incentive spirometer. If his capacity begins to diminish please do not hesitate to contact us for re-evaluation as needed.
[2017-02-08] MEDS ORDERED: Alum-Mag Hydrox-Simethicone Susp (30 mL) PO PRN (03:31)
[2017-02-08] MEDS ORDERED: Magnesium Hydroxide Susp 30 ml UD PO PRN (03:31)
[2017-02-08] MEDS: Pantoprazole 40 mg EC Tab PO SCH (05:36)
[2017-02-08 06:36] LABS: BASO # 0.01 K/mm3 (0.0-2.0); BASO % 0.6 % (0.0-3.0); EOS # 0.2 (0.0-0.7); EOS % 11.8 % (1.5-5.0); GRAN # 0.68 (1.4-6.5); GRAN % 38.1 % (50.0-68.0); HEMATOCRIT 33.3 % (42.0-52.0); LYMPH # 0.6 (1.2-3.4); LYMPH % 32.6 % (22.0-35.0); MEAN CELL VOLUME 93.5 fl (80.0-105.0); MEAN CORPUSCULAR HEMOGLOBIN 31.5 pg (25.0-35.0); MEAN CORPUSCULAR HGB CONC 33.6 g/dl (31.0-37.0); MEAN PLATELET VOLUME 9.8 fl (7.0-11.0); MONO # 0.3 (0.1-0.6); MONO % 16.9 % (1.0-6.0)
[2017-02-08 06:52] LABS: ALB/GLOB RATIO 0.8 (1.1-1.8); ALKALINE PHOSPHATASE 54 U/L (38-126); ALT/SGPT 35 U/L (7-56); AST/SGOT 45 U/L (17-59); BILIRUBIN,TOTAL 1.2 mg/dL (0.2-1.3); BLOOD UREA NITROGEN 10 mg/dL (7-21); CARBON DIOXIDE 27 mmol/L (21-33); CHLORIDE 111 mmol/L (98-107); GFR AFRICAN-AMERICAN > 60; GLUCOSE,RANDOM 97 mg/dL (70-110); MAGNESIUM 1.7 mg/dL (1.7-2.2); PHOSPHOROUS 4.1 mg/dL (2.5-4.5); POTASSIUM 3.7 mmol/L (3.6-5.0); SODIUM 142 mmol/L (132-148); TOTAL PROTEIN 5.9 g/dL (5.8-8.3); WHITE BLOOD COUNT 1.8 10^3/ul (4.5-11.0)
--- NOTE | 2017-02-08 08:21 | RAD ---
HISTORY: Weakness. Portable study 20:50. COMPARISON: No prior. FINDINGS: LUNGS: No active pulmonary disease. PLEURA: No significant pleural effusion identified, no pneumothorax apparent. CARDIOVASCULAR: No radiographic findings to suggest acute or significant cardiovascular disease. OSSEOUS STRUCTURES: No significant abnormalities. VISUALIZED UPPER ABDOMEN: Normal. OTHER FINDINGS: None. IMPRESSION: No active disease.
[2017-02-08] MEDS ORDERED: Naproxen 275 mg Tab PO SCH (10:00)
--- NOTE | 2017-02-08 11:31 | CON ---
DATE: 02/08/2017 NEUROLOGY CONSULTATION REASON FOR CONSULTATION: Weakness in the legs. HISTORY OF PRESENT ILLNESS: The patient is a 46-year-old male who was in psych unit for depression. He was noted to have dizziness over the last 2 days and he was also experiencing weakness in the legs more on the right lower leg than the left leg. He was also experiencing pain in the lower extremities. The patient apparently had Guillain-Ruffin syndrome in 09/2016 that caused him to have weakness in both lower extremities, however, according to the patient, he was able to walk. Over the last 2 to 3 days he is experiencing some weakness in the right lower extremity more than the left. He denies any weakness in his arms. Denies any shortness of breath. REVIEW OF SYSTEMS: Denies any headaches. Positive for dizziness. Denies any chest pain, shortness of breath, abdominal pain, constipation, diarrhea, cough, or sputum production. PAST MEDICAL HISTORY: Include Guillain-Ruffin syndrome, Farhad's disease, liver cirrhosis, and bipolar disorder. PAST SURGICAL HISTORY: Include appendectomy, spinal fusion, and knee surgery. MEDICATIONS: Include Anaprox, Ativan, Geodon, heparin, Lipitor, Neurontin 300 mg t.i.d., Protonix, Prozac, Zofran, and Tylenol. ALLERGIES: NO KNOWN DRUG ALLERGIES. SOCIAL HISTORY: He does smoke cigarettes. Denies use of alcohol or illicit drugs. FAMILY HISTORY: Noncontributory to the case. PHYSICAL EXAMINATION GENERAL: The patient is an middle aged male, lying on the bed in no acute distress. VITAL SIGNS: Blood pressure is 105/73, heart rate is 52 per minute, breathing at the rate of 16 per minute, and temperature is 98 degrees Fahrenheit. HEENT: Normocephalic and atraumatic. NECK: Supple. There are no carotid bruit. LUNGS: Clear. CVS: S1 and S2, audible. No murmurs. ABDOMEN: Soft, nontender, bowel sounds are present. NEUROLOGIC: Mental Status: The patient is awake, alert, oriented to time, place, and person. Speech is fluent. Naming and repetition is normal. Memory and cognition are intact. Cranial nerve examination; pupils are 4 mm bilaterally reactive to light. Visual garcia are full. Extraocular movements are intact. There is no facial asymmetry. Palate is upgoing bilaterally. Tongue is midline. Motor Examination: Tone is normal. Power is in the upper extremities is 5/5 and power in the lower extremity on the left is 5/5 and on the right is 3/5. Reflexes 1+ and symmetrical in the upper extremities. In the lower extremities absent knee jerk but positive ankle jerk on the left side. Planters are downgoing bilaterally. Sensory Examination: Intact to soft touch and pinprick. Gait is deferred at the moment. LABORATORY DATA: Reviewed shows WBC of 1.8, hemoglobin of 11.2, hematocrit 33.1, and platelets of 88. His INR is 1.24. Sodium is 142, potassium 3.7, chloride of 111, carbon dioxide content of 27, BUN of 10, creatinine of 0.7 and glucose of 97. He has lumbar puncture done which CSF shows WBC of 2 and protein is 51 and glucose of 50. IMPRESSION: 1. Right lower extremity weakness rule out cerebrovascular accident or any spinal lesion. Doubt this is Guillain-Ruffin syndrome, however with history of Guillain-Ruffin syndrome we will watch the patient very closely for any exacerbation of weakness. RECOMMENDATIONS: 1. The patient to have MRI of the brain without contrast. 2. The patient also to have MRI of the thoracic, lumbar as well as cervical spine. 3. The patient to be started on physical therapy. 4. Please continue supportive care and the treatment. Thank you for the opportunity to participate in the care of this patient. Kavon Guo MD
--- NOTE | 2017-02-08 15:40 | PN ---
SUBJECTIVE: The patient is a 46-year-old male, self-reports a history of bipolar disorder, multiple psychiatric admissions in the past, history of suicidal attempt. The patient was transferred from [facility] for evaluation of depressive symptoms and suicidal ideations. The patient was found to have hypotension with bradycardia. The patient appeared to be weak and pale. The patient was seen by medical team. The patient was sent to emergency room and now was admitted to CCU unit. The patient was followed up. Today, the patient presented to be sleepy, easily arousable. The patient said that he still feels very depressed, but the patient said that he feels ill from the medical standpoint. This financial underwriter reviewed vital signs. Vital signs seems to be stable, but the patient still have pulse of 52, blood pressure is 105/73, respiration 16. MEDICATIONS: Reviewed. Tylenol, Lipitor, Prozac was just started 10 mg daily, Neurontin 300 mg 3 times a day, Ativan 0.5 mg 3 times a day as needed, Remeron 15 mg at the nighttime, scheduled Zofran, Protonix, sodium chloride, and Geodon. The patient also had hematology done. The patient has pancytopenia. Chemistry also reviewed. Albumin low. Urinalysis: Leukocyte esterase trace. The patient also had spinal tap yesterday. Mental status examination, the patient appears to be drowsy but easily arousable. The patient reported that he feels depressed and weak, intermittent eye contact. Speech was underproductive. Thought process was coherent and goal directed. Thought content: The patient denied visual, auditory, tactile hallucinations. Denied paranoid ideations. The patient denied thoughts of harming himself or others, denied intent or plan. The patient reports that he feel hopeless and helpless. Insight and judgment fair. Impulses are well controlled. IMPRESSION: As per history, the patient has bipolar disorder. At the present moment, the patient was transferred to CCU for his medical issues. The patient has Farhad disease, liver cirrhosis, history of Guillain-[place] syndrome. The patient also has obesity and multiple medical issues. PLAN: At present moment, the patient is under care of medical team. This financial underwriter held Risperdal because it could give low WBC cells and agranulocytosis. The patient is currently on Prozac, please continue that, as well as the patient on Remeron as well as Ativan as needed for alcohol withdrawal symptoms. Dr. Lloyd will follow up on this patient over the weekend and advice accordingly. Continue current management. We will follow up with you. Lexie Jolley MD
--- NOTE | 2017-02-08 16:45 | CON ---
DATE: ENDOCRINOLOGY CONSULT LOCATION: CCU 129, room 4. HISTORY OF PRESENT ILLNESS: This is a 46-year-old male with subchronic schizoaffective disorder presenting here with generalized body weakness and recent bouts of near syncope and syncopal episodes, and is now being referred for endocrine evaluation because of apparent history of Whitfield's disease, although he is not on any kind of long-term steroid medications at this time. 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 He has also known history of alcoholic liver cirrhosis with esophageal varices and associated hepatosplenomegaly, history of generalized anxiety and depression with underlying chronic schizoaffective disorder, and the previous admission with suicidal objectives and major depression, history of chronic gastritis with a prior upper and lower endoscopy undertaken. FAMILY HISTORY: Positive for hypertension and heart disease, no known endocrinopathy at this time. SOCIAL HISTORY: The patient admits to chronic alcoholism, but denies any other substance use. REVIEW OF SYSTEMS: As mentioned above, admitted to generalized body weakness with easy fatigability and tiredness, and suboptimal energy level with recent bouts of dizziness and lightheadedness and apparent near syncopal and syncopal episodes as noted thereof, also admits to precordial chest pain with occasional bouts of shortness of breath especially on exertion. His oral intake is variable and suboptimal with nausea, dyspepsia, and vomiting episode. PHYSICAL EXAMINATION GENERAL: This is an overweight male in no apparent distress. VITAL SIGNS: Blood pressure 150/90, pulse of 100 beats per minute and regular, temperature 98, respirations 20, height is 5 feet 10 inches, weight is 295 pounds. HEENT: Head is normocephalic. Eyes; anicteric with pink conjunctivae. Funduscopy not possible at this time. Ears, nose and throat otherwise normal. NECK: Supple. Thyroid gland is normal in size. No carotid bruits or any cervical adenopathy. CARDIOPULMONARY: Adynamic precordium. S1 and S2 is rapid and regular. LUNGS: Clear to auscultation. ABDOMEN: Obese, soft with positive bowel sounds. EXTREMITIES: No peripheral edema. Pulses are +2 bilaterally LABORATORY DATA: His chemistries showed a BUN of 10, sodium 142, potassium 3.7, chloride 111, CO2 of 27, glucose 97, and creatinine 0.7 ASSESSMENT AND PLAN: This is a 46-year-old male who is admitted with constitutional symptoms and worsening near syncopal and syncopal episodes as noted thereof and is being referred now for endocrine evaluation because of an apparent history of Whitfield's disease. He remains hemodynamically stable at this time with no evidence of extremes of blood pressure fluctuations as noted. There is also a significant history of chronic alcoholic cirrhosis with underlying splenomegaly and possible portal hypertension. There is also a significant history of Guillain-Ruffin syndrome with lower extremity weakness as noted. Plan of management was discussed with the patient and staff. We will obtain a comprehensive hormonal profile before we start him empirically on any kind of steroid treatment. We will obtain a total T4 and TSH with a repeat thyroid peroxidase antibody as noted. We will also obtain a baseline serum cortisol and ACTH level with the T4 and TSH level as ordered. We will titrate incrementally as indicated to optimize metabolic control. We will follow and advise accordingly. Di Clarke MD
--- NOTE | 2017-02-08 16:51 | MRI ---
PROCEDURE: MRI BRAIN WITHOUT CONTRAST HISTORY: R leg weakness COMPARISON: None. TECHNIQUE: Multiplanar, multisequence MR images of the brain were obtained without intravenous contrast enhancement. FINDINGS: HEMORRHAGE: None DWI: No evidence of an acute or early subacute infarction. BRAIN PARENCHYMA: No mass effect or edema. Mild atrophy is noted. VENTRICLES: Unremarkable. No hydrocephalus. CRANIUM: Unremarkable. ORBITS: Grossly unremarkable. PARANASAL SINUSES/MASTOIDS: Mild mucosal thickening at the inferior aspect of the bilateral maxillary sinuses. VASCULAR SYSTEM: Skull base flow voids intact. OTHER FINDINGS: None. IMPRESSION: No evidence of acute infarction or acute intracranial pathology. Mild atrophy.
--- NOTE | 2017-02-08 17:22 | MRI ---
PROCEDURE: MR CERVICAL SPINE WITHOUT CONTRAST HISTORY: R leg weakness COMPARISON: None available. TECHNIQUE: Multiecho multiplanar sequences were performed through the cervical spine without the use of intravenous contrast. FINDINGS: There is straightening of the cervical spine with loss of normal cervical lordosis. Vertebral alignment is normal. Vertebral height is maintained. There is no acute fracture or spondylolisthesis. There are degenerative endplate marrow changes at C7-T1, otherwise bone marrow signal is within normal limits. There is congenital fusion of the C3 and C4 vertebral bodies with rudimentary disc and fusion of the posterior elements. The cervical cord is normal in contour, caliber and demonstrates normal intrinsic signal. There is congenital narrowing of the cervical canal from congenital short pedicles The paraspinous soft tissues are normal. No prevertebral soft tissue thickening. C2-C3: Disc osteophyte complex with asymmetric left uncovertebral joint hypertrophy results in mild left neural foraminal stenosis. No spinal canal stenosis. C3-C4: Rudimentary disc. C4-C5: Broad-based disc osteophyte complex indents the ventral thecal sac and results in mild spinal canal stenosis. Also noted is superimposed right posterolateral disc protrusion and left foraminal disc protrusion. Mild bilateral facet arthropathy contributes to moderate right and severe left neural foraminal stenosis. C5-C6: Broad-based disc osteophyte complex indents the ventral thecal sac and results in mild spinal canal stenosis. Moderate bilateral facet arthropathy contributes to severe right and [id number] left neural foraminal stenosis. C6-C7: Broad-based disc osteophyte complex indents the ventral thecal sac with mild spinal canal stenosis. Also noted is a large left foraminal disc protrusion which impinges on the exiting left C7 nerve root. Mild right and moderate left facet arthropathy with a contributes to [id number] right and severe left neural foraminal stenosis. C7-T1: Central disc protrusion indents the ventral thecal sac with resultant mild spinal canal stenosis. Also noted is a superimposed left foraminal disc protrusion which impinges on the exiting C8 nerve root. Mild bilateral facet arthropathy contributes to moderate right and severe left neural foraminal stenosis OTHER FINDINGS: None. IMPRESSION: 1. 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 2. At C6-7 left foraminal disc protrusion impinges on the exiting left C7 nerve root. Also noted is [id number] right and severe left neural foraminal stenosis and mild spinal canal stenosis. 3. At C7-T1 central disc protrusion and mild spinal canal stenosis. Also noted is a left foraminal disc protrusion which impinges on the exiting left C8 nerve root.
--- NOTE | 2017-02-08 17:33 | MRI ---
PROCEDURE: MR THORACIC SPINE WITHOUT CONTRAST HISTORY: R leg weakness COMPARISON: None available. TECHNIQUE: Multiecho multiplanar sequences were performed through the thoracic spine without the use of intravenous contrast. FINDINGS: ALIGNMENT: There is normal alignment of the thoracic vertebral bodies. There is normal thoracic kyphosis. VERTEBRA: Vertebral body height are preserved. MARROW: There are degenerative endplate marrow changes at T9-10, T10-11 and T12-L1 anteriorly. There is degenerative fusion of the T9 and T10 vertebral bodies. Otherwise, bone marrow signal is within normal limits. PARASPINAL SOFT TISSUES: The paraspinous soft tissues are normal. CORD: The thoracic cord is normal in contour, caliber and has normal intrinsic signal. . DISCS: There is mild multilevel degenerative disc disease with loss of T2 signal and desiccation of the lower thoracic discs, worse at T7-8 with a broad-based central disc protrusion which indents the ventral thecal sac without spinal canal stenosis. No neural foraminal stenosis. OTHER FINDINGS: None. IMPRESSION: Mild multilevel degenerative disc disease in the mid and lower thoracic spine, worse at T7-8 with a broad-based central disc protrusion without spinal canal stenosis. No neural foraminal stenosis. No intrinsic cord signal abnormality.
--- NOTE | 2017-02-08 17:43 | MRI ---
PROCEDURE: MR LUMBAR SPINE WITHOUT CONTRAST HISTORY: R leg weakness COMPARISON: None available. TECHNIQUE: Multiecho multiplanar sequences were performed through the lumbar spine without the use of intravenous contrast. FINDINGS: There is normal alignment of the lumbar vertebral bodies. Lumbar lordosis is maintained. Vertebral bodies are normal in height. There is no acute fracture, spondylolysis or spondylolisthesis. There is a congenitally narrow lower lumbar spinal canal from congenital short pedicles. There is a large round cough fatty marrow in the L2 vertebral body and a smaller area in the posterior inferior T12 vertebral body. There are degenerative endplate marrow changes at T11-12, L2-3 and L5-S1, otherwise bone marrow signal is within normal limits. The conus medullaris terminates at a normal level and the nerve roots of cauda equina are normal. The paraspinous soft tissues are normal. Imaged portion of the retroperitoneum is within normal limits. T12-L1: No disc herniation, spinal canal stenosis or neural foraminal narrowing. L1-2: No disc herniation, spinal canal stenosis or neural foraminal narrowing. L2-3: Mild posterior disc bulge without spinal canal stenosis. No neural foraminal stenosis. L3-4: Small central annular tear and disc protrusion without central spinal canal stenosis. Also noted is mild bilateral facet arthropathy and mild right. L4-5: Central annular tear, diffuse posterior disc bulge and mild ligamentum flavum infolding without central spinal canal stenosis. Also noted is a small left foraminal disc protrusion. Moderate bilateral facet arthropathy contributes to moderate bilateral neural foraminal stenosis, worse on the left. L5-S1: Diffuse posterior disc bulge with superimposed left far lateral disc protrusion which impinges on the exiting left L5 nerve root. Mild bilateral facet arthropathy contributes to mild neural foraminal stenosis. OTHER FINDINGS: None. IMPRESSION: Mild multilevel degenerative disc disease, worse at L4-5 with a central annular tear, diffuse posterior disc bulge and mild ligamentum flavum infolding without central spinal canal stenosis. Also noted is a small left foraminal disc protrusion and moderate bilateral neural foraminal stenosis, worse on the left.
[2017-02-08] MEDS: Sodium Chloride 0.9% 1,000 ML IV SCH (21:00)
--- NOTE | 2017-02-08 21:01 | CARD ---
APPROVED REPORT EKG Measurement Heart [id number] <Conclusion> Sinus bradycardia with 1st degree AV block Septal infarct, age undetermined Abnormal ECG
--- NOTE | 2017-02-09 01:42 | HP ---
HISTORY OF PRESENT ILLNESS: This 46-year-old male was examined in bed #4 of the critical care unit. He had previously been admitted to the 5B psychiatric floor under the care of Dr. Lexie Jolley for major depression and suicidal ideation, having felt depressed and wanting to jump in front of a train and kill himself. He initially was in the Emergency Room at [facility] for the evaluation of depressive symptoms with worsening anxiety as well as suicidal ideation with his plan to jump in front of a train. His girlfriend brought him to the emergency room there and he was transferred to [facility] where he was found to be depressed, irritable and weak in the setting of bipolar disorder with anxiety and depressive features at present. The patient's past medical history is also extensive and includes morbid obesity, advanced cirrhosis, history of alcoholism, history of adrenal insufficiency, pancytopenia, Guillain-Ellsworth syndrome most recently in 09/2016 where he was treated with plasmapheresis and physical therapy. Yesterday, while in the psychiatric unit, he became weak, dizzy, had complained of right leg weakness and inability to walk and was sent to the emergency room for further evaluation of the above. There he was found to have multiple issues including hypotension, right leg weakness, pancytopenia, coagulopathy all in the setting of noncompliance with outpatient medication prior to this patient's admission, the list which includes Florinef 0.1 mg p.o. b.i.d., Latuda 40 mg p.o. daily, ProAmatine 10 mg p.o. b.i.d., lactulose 30 mL p.o. q.i.d., furosemide 40 mg p.o. daily, folic acid 1 mg daily, Neurontin 400 mg p.o. t.i.d., Protonix 40 mg b.i.d. spironolactone 25 mg b.i.d. and thiamine 100 mg p.o. daily. The patient is a chronic alcoholic who is aware of his cirrhosis. He was noted to have an elevated alcohol level at [facility] Emergency Room of 312 He has not taken any of his previously prescribed medications despite knowing that he needs to take lactulose 4 times daily for elevated ammonia levels. He also is an active smoker, morbidly obese and noncompliant with diet and medication prior to his evaluation at the [facility] Emergency Room. REVIEW OF SYSTEMS: HEAD REVIEW: He had no knowledge of stroke. EYE REVIEW: No change in visual acuity. EAR REVIEW: No hearing loss. THROAT REVIEW: No swallowing difficulty. NECK REVIEW: No stiffness. CARDIAC REVIEW: He denied any knowledge of chest pain or heart attack. PULMONARY: Denied any cough or hemoptyses. GASTROINTESTINAL: Has chronic cirrhosis for which he actively was prescribed lactulose, but noncompliant. GENITOURINARY: Denied any knowledge of renal failure. VASCULAR: Denied claudication. PSYCHOLOGIC: Has recurrent bipolar psychosis and has had suicidal attempts in his past. ENDOCRINOLOGIC: Denied any knowledge of hyperlipidemia or diabetes. FAMILY HISTORY: Noncontributory. SOCIAL HISTORY: He is active smoker, active drinker. Denied any IV drug misuse. He has multiple tattoos all over his skin. ALLERGIES: DENIED ANY ALLERGIES TO MEDICATION. PHYSICAL EXAMINATION: VITAL SIGNS: In the intensive care unit, he was noted to have temperature 97.7, respirations 16 monitoring analyst is a normal sinus, pulse 65 and blood pressure 110/68 with a pulse ox of 100% on room air. HEAD: Normocephalic and atraumatic. EYES: No icterus. EARS; Clear. NECK: Supple. HEART: Regular. S1 and S2. No pathologic rubs, murmurs or gallops. LUNGS: Clear. ABDOMEN: Obese and nontender without palpable organomegaly. No rebound, no guarding and no tenderness. EXTREMITIES: No clubbing, no cyanosis and no edema. No obvious cellulitis. He has multiple tattoos on his arms and legs. VASCULAR: Legs warm to touch. PSYCHOLOGIC: Alert and oriented x3. SKIN; Multiple tatoos on arms and legs. NEUROLOGIC: He was able to stand with me at his bedside, but his motor strength was weakened with the right leg being 4/5 and the rest of his exam 5/5. LABORATORY DATA: White count 1800, hemoglobin 11.2, hematocrit 33.3, platelets 88,000. PT/INR 1.24, PTT 32.1. Sodium 142, potassium 3.7, chloride 111, bicarbonate 27, BUN 10, creatinine 0.7, random blood sugar 97. Magnesium normal 1.7, phosphorous normal 4.1. All liver function testing was normal including bilirubin 1.2, AST 45, ALT 35 and alkaline phosphatase 54. Troponin was less than 0.01. Urinalysis was unremarkable. His final fluid tap showed a CSF total protein of 51, normal. Microbiology; gram-stain of the CSF fluid showed no organisms, no white blood cells. IMPRESSION: A 46-year-old male with suicidal ideation, admitted to psychiatric [facility] for bipolar psychosis with manic features, anxiety, alcohol abuse and misuse and now transferred to intensive care for evaluation of multiple medical comorbidities including advanced cirrhosis, history of adrenal insufficiency, hypotension, pancytopenia, neuropathy, history of Guillain-Ellsworth now with right leg weakness, history of degenerative arthritis and noncompliance with diet, medication and medical followup in his past. The patient admits to not taking any of his recommended prescription medication as prescribed by his previous consultants at [facility] prior to this admission. PLAN: Maintain the patient in critical care. He is ordered to have a stat ammonia level as well as a comprehensive metabolic panel, cortisol level, lipid panel, T4 and TSH levels, ACTH plasma levels while awaiting blood, CSF cultures, urine cultures and MRSA screens of his nasal swabs. I have placed consultations with Dr. Lexie Jolley from psychiatry regarding his bipolar, depression and suicidal ideation. A consultation with Dr. Kavon Guo has been completed regarding his right leg weakness, history of Guillain-Ellsworth and he has requested MRIs of the patient's brain, c-spine, thoracic spine and lumbar spine to further evaluate right leg weakness. He has reviewed his final tap results and has no further recommendations regarding those testing at this time. He does concur with proceeding with physical therapy. A consultation with Dr. Di Clarke from endocrinology has been requested regarding his history of adrenal insufficiency and adjustment of medication for this issue as well. I will resume the patient's Florinef 0.1 mg p.o. b.i.d. after his endocrinological testings have been obtained. The patient is requested to have a consultation with Dr. Parish Ochoa from hematology/oncology regarding pancytopenia, most likely on the basis of his alcohol abuse and cirrhosis. A consultation with Dr. Francisco Javier Navarro from GI has been requested as well regarding his pancytopenia, history of cirrhosis and for him to evaluate and properly readjust his GI medications. At present, the patient is schedule to receive a soft, bland, heart healthy diet. He did refuse a swallowing evaluation, but was recommended by speech therapy to have this diet allowed while monitoring him for aspiration and swallowing difficulties. He will continue on Aldactone 25 mg p.o. b.i.d., Ativan 0.5 mg p.o. t.i.d. p.r.n. anxiety, lactulose 20 g p.o. q.i.d., Florinef will be resumed 0.1 mg p.o. b.i.d. after his cortisol levels are obtained. He is ordered to have Geodon 20 mg p.o. q. 6 hours p.r.n. agitation, Lasix 40 mg p.o. daily, Neurontin 300 mg p.o. t.i.d., ProAmatine 10 mg p.o. b.i.d., Protonix 40 mg p.o. b.i.d., Prozac 10 mg p.o. daily, Remeron 15 mg p.o. at bedtime, 0.9 saline at 100 mL per hour and Zofran 4 mg p.o. q. 8 hours p.r.n. nausea and vomiting and Tylenol 650 mg p.o. q. 6 hours p.r.n. fever. He is on pulse ox, continuous checks. He will be having neuro checks q. 2 hours. He has been ordered to be out of bed with assistance and to wear SCD anti-embolism mechanical device stockings when in bed to prevent DVT. He is ordered to have physical therapy for reconditioning and gait training and will require followups with hematology/oncology, gastroenterology, endocrinology, neurology and psychiatry. All of the problems discussed in detail with the patient at his bedside, his nurse and co-consultants and greater than 1 hour was spent in the critical care management of this patient today. Overall prognosis remains poor, but stable at present. Sidra Ann MD [facility]
[2017-02-09 05:39] LABS: ALB/GLOB RATIO 0.8 (1.1-1.8); ALKALINE PHOSPHATASE 55 U/L (38-126); ALT/SGPT 33 U/L (7-56); AST/SGOT 41 U/L (17-59); BILIRUBIN,TOTAL 0.9 mg/dL (0.2-1.3); BLOOD UREA NITROGEN 11 mg/dL (7-21); CALCIUM 8.2 mg/dL (8.4-10.5); CARBON DIOXIDE 25 mmol/L (21-33); CHLORIDE 111 mmol/L (98-107); CHOLESTEROL 82 mg/dL (130-200); GFR AFRICAN-AMERICAN > 60; GLUCOSE,RANDOM 89 mg/dL (70-110); SODIUM 141 mmol/L (132-148); TOTAL PROTEIN 5.9 g/dL (5.8-8.3)
[2017-02-09 06:07] LABS: THYROID STIMULATING HORMONE 1.11 mIU/mL (0.46-4.68)
[2017-02-09] MEDS: Sodium Chloride 0.9% 1,000 ML IV SCH (06:30)
[2017-02-09] MEDS: Pantoprazole 40 mg EC Tab PO SCH ×2 (06:49→16:00)
[2017-02-09 12:15] LABS: CORTISOL AM 2.7 ug/dL (4.46-22.7)
--- NOTE | 2017-02-09 16:11 | PN ---
DATE: NEUROLOGY PROGRESS NOTE SUBJECTIVE: The patient is lying on the bed, in no acute distress. Denies having any headache or dizziness. PHYSICAL EXAMINATION VITAL SIGNS: His blood pressure is 93/38, heart rate 78 per minute, breathing at the rate of 16 per minute, temperature is 97.9 degree Fahrenheit. HEENT: Head is normocephalic and atraumatic. NECK: Supple. There are no carotid bruits. LUNGS: Clear. CARDIOVASCULAR SYSTEM: S1 and S2, audible. No murmurs. ABDOMEN: Soft, nontender, bowel sounds are present. NEUROLOGIC: Mental Status: The patient is awake, alert, oriented to time, place, person. Speech is fluent. Naming and repetition is normal. Memory and cognition are intact. Cranial nerve examination: Pupils are 3 mm bilaterally reactive to light. Visual garcia are full. Extraocular movements are intact. There is no facial asymmetry. Palate is upgoing bilaterally and tongue is midline. Motor examination: Tone is normal and power is in lower extremity left is 5/5 and right is 4/5. LABORATORY DATA: Labs reviewed. 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 C6-C7 left foraminal disk protrusion impinges on the exiting left C7 nerve root. C7-T1 central disk protrusion and mild spinal canal stenosis. No cord abnormality. He also had MRI of the lumbar spine which showed multilevel degenerative disk disease versatile L4-L5 with the central annular tear, diffused posterior disc bulge and mild ligamentum flavum, infolding without central spinal canal stenosis. He had MRI of the thoracic spine which shows mild multilevel degenerative disk disease with mid and lower thoracic spine worse at T7-T8 with a broad based central disc protrusion without spinal canal stenosis. The patient also had MRI of the brain which shows no acute intracranial pathology. IMPRESSION: Right lower extremity weakness which is likely secondary to his history of lumbar spine surgery with multilevel degenerative disk disease. The patient does not have any evidence of Guillain-[place] syndrome. RECOMMENDATIONS: 1. The patient to have physical therapy for gait imbalance as well as the strength right lower extremity muscles. 2. No further neurologic recommendations at the moment. 3. Please call Neurology on an as needed basis. Thank you for the opportunity to participate in the care of this patient. Kavon Guo MD [facility] # [id number]
[2017-02-09] MEDS: Lidocaine 5% Patch TD PRN (18:06)
--- NOTE | 2017-02-09 20:17 | CON ---
DATE: HISTORY OF PRESENT ILLNESS: The patient is a 46-year-old white male with a self reported history of bipolar disorder, multiple psychiatric admissions in the past, suicide attempts with transfer from [facility] for evaluation of depression and suicidal thought and then was admitted to CCU for hypotension and bradycardia. Psychiatry was following up with the patient and I reviewed Dr. Jolley's notes, which indicates the patient continues to be very depressed and he still feels medically ill. I met with the patient bedside today and he is alert and oriented x3. Focus is fair. He still feels unwell and weak. The patient also reports that he still continuous to be very depressed, tolerating current medications. Denies hallucinations, thoughts to harm himself or others. He still feels hopeless and medical issues currently as of now. Thought process is fairly coherent and the patient appears to be in fair control while he is in the CCU according to nursing notes. Insight and judgment considered to be fair. PHYSICAL EXAMINATION: VITAL SIGNS: The vital signs were reviewed. LABORATORY DATA: Labs were reviewed. MEDICATIONS: Relevant psychiatric medications include Prozac 10 mg daily, Neurontin 300 t.i.d., Ativan 0.5 mg p.o. t.i.d. p.r.n., Remeron 15 mg at bedtime, and Geodon 20 mg q. 6 hours p.r.n. IMPRESSION: Per history, the patient has bipolar disorder, alcohol dependency by history, rule out contribution of substance induced mood disorder, rule out adjustment disorder with mood and anxiety, rule out amplification of symptoms for secondary gain. PLAN: We will continue with current treatment and plan. There is no acute indications for change. At this time, nursing should be adjusting the patient's benzos according to tolerance level and monitoring vitals in this respect. Psychiatry will continue to follow him for mood and anxiety issues until the patient is medically cleared. He ultimately transferred to the psychiatric floor for continued psychiatric stabilization. Justyna Ryan MD
--- NOTE | 2017-02-10 00:55 | PN ---
DATE: 02/09/2017 SUBJECTIVE: This patient was seen and evaluated earlier. I discussed with the ICU staff. The patient is comfortable, tolerating the diet. No complaints of abdominal pain now. PHYSICAL EXAMINATION VITAL SIGNS: Temperature is afebrile, blood pressure is 102/52, pulse is 55, and respirations are 17. HEENT: Atraumatic. Anicteric. NECK: Supple. HEART: S1 and S2. LUNGS: Bilateral air entry present. ABDOMEN: Soft. There is no mass palpable. No tenderness. EXTREMITIES: No edema and no cyanosis. NEUROLOGIC: He is alert and oriented and moves all the extremities. SKIN: Multiple tattoos. LABORATORY DATA: There is no CBC done today. Chemistry only done and the chemistry shows LFTs essentially unremarkable, and albumin is 2.5. IMPRESSION: 1. This 46-year-old patient transferred from the psychiatric floor for weakness mainly in the right lower extremity. The patient has a history of cirrhosis, history of esophageal varices in the past, found to have an elevated ammonia level on admission. Presently, on Aldactone 25 mg twice daily and he is on lactulose 20 mg q.i.d. 2. History of Rankin's disease. 3. Right lower extremity weakness. 4. History of Guillain-Sciota's. The patient being evaluated by neurology and notes reviewed. Gait imbalance suspected likely related to the lumbar spine surgery with multiple level degenerative disk disease secondary to Guillain-Sciota's syndrome. 5. Depression, history of suicidal attempt. 6. History of ETOH use. RECOMMENDATIONS: 1. We will repeat the ammonia level. 2. We will decrease lactulose dose to once daily and start the patient on Xifaxan. 3. Monitor electrolytes closely. 4. I would get an ultrasound scan of the abdomen and also fetoprotein. 5. Also repeat the hepatitis profile test. 6. I would review the records from the [facility]. Thank you very much for allowing us to participate in the care of the patient. We will continue to closely follow up his care. Suggest further management based on the clinical course. Francisco Javier Navarro MD
[2017-02-10] MEDS: Sodium Chloride 0.9% 1,000 ML IV SCH (03:00)
[2017-02-10 05:13] LABS: HEMATOCRIT 35.2 % (42.0-52.0); MEAN CELL VOLUME 92.1 fl (80.0-105.0); MEAN CORPUSCULAR HEMOGLOBIN 31.7 pg (25.0-35.0); MEAN CORPUSCULAR HGB CONC 34.4 g/dl (31.0-37.0); MEAN PLATELET VOLUME 10.3 fl (7.0-11.0); RED CELL DISTRIBUTION WIDTH 15.6 % (11.5-14.5)
[2017-02-10 05:15] LABS: WHITE BLOOD COUNT 1.8 10^3/ul (4.5-11.0)
[2017-02-10 05:33] LABS: ALB/GLOB RATIO 0.8 (1.1-1.8); ALKALINE PHOSPHATASE 55 U/L (38-126); ALT/SGPT 35 U/L (7-56); AST/SGOT 41 U/L (17-59); BILIRUBIN,TOTAL 1.1 mg/dL (0.2-1.3); BLOOD UREA NITROGEN 11 mg/dL (7-21); CALCIUM 8.3 mg/dL (8.4-10.5); CARBON DIOXIDE 29 mmol/L (21-33); CHLORIDE 111 mmol/L (98-107); GFR AFRICAN-AMERICAN > 60; GLUCOSE,RANDOM 81 mg/dL (70-110); MAGNESIUM 1.6 mg/dL (1.7-2.2); POTASSIUM 3.9 mmol/L (3.6-5.0); SODIUM 142 mmol/L (132-148); TOTAL PROTEIN 5.9 g/dL (5.8-8.3)
[2017-02-10] MEDS: Pantoprazole 40 mg EC Tab PO SCH (07:03)
--- NOTE | 2017-02-10 07:27 | PN ---
DATE: 02/09/2017 SUBJECTIVE: This 46-year-old male was examined in the critical care unit, bed #4. His case was reviewed in detail with himself; his nurse, Carissa Larkin, registered nurse and co-consultants. He remains in critical care with hypotension and multiple comorbidities including recent suicidal attempt, anxiety, depression, bipolar psychosis, and medical comorbidities including advanced cirrhosis of the liver with elevated ammonia levels, history of adrenal insufficiency, symptomatic hypotension, degenerative arthritis, spinal arthritis, peripheral neuropathy, history of Guillain-[place] syndrome, history of alcoholic gastritis, pancytopenia and noncompliance with diet, medication and medical followup in his past. As discussed previously, this patient is fully aware of his multiple medical comorbidities and voluntarily decided not to take any of his medications prior to his evaluation at the [facility] ER where he was found to be in need of psychiatric hospitalization and transferred to the [facility] for that treatment. Now, he is in critical care because of multiple medical comorbidities and decompensations as outlined above. 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 His respirations were 17 and temperature was afebrile with a pulse oximetry of 97% on room air. HEENT: Showed head normocephalic, atraumatic. Eyes, no icterus. Ears, clear. Throat, not injected. NECK: Supple. HEART: Regular S1, S2. No pathological rubs, murmurs, or gallops. LUNGS: Clear to auscultation. ABDOMEN: Obese. No palpable organomegaly. No rebound, no guarding, no tenderness. EXTREMITIES: Without edema. SKIN: With multiple tattoos on both arms and legs. VASCULAR: Legs warm to touch. PSYCHOLOGICAL: Alert and oriented x3. NEURO: He was able to move all 4 extremities. LABORATORY DATA: Today's labs show white count 1800; hemoglobin 11.2; hematocrit 33.3; platelets 88,000. PT/INR 1.24, PTT 32.1. Sodium 141, potassium 4.0. chloride 111, bicarbonate 25, BUN 11, creatinine 0.6. Random blood sugar was 89. All liver function testings were normal including bilirubin 0.9, AST 41, ALT 33, and alkaline phosphatase 55. Ammonia level was elevated at 53. Cholesterol 82, triglycerides 35, LDL 34, and HDL 42. Ferritin level normal at 61.8. B12 normal at 523. T4 of 5.0, TSH 1.11. Cortisol level 2.7, which was low with normal being 4.46 to 22.7. Urinalysis unremarkable. Microbiology studies showed no MRSA of the nares. Urine culture without growth and no growth of his CSF fluid culture. IMPRESSION: This is a 46-year-old male with recent suicidal ideation, history of bipolar psychosis, anxiety and recurrent depression with comorbidities of liver cirrhosis, elevated ammonia levels, adrenal insufficiency, hypotension, history of Guillain-[place] syndrome, spinal arthritis, degenerative arthritis, peripheral neuropathy, alcoholic gastritis, anxiety, and history of noncompliance with diet, outpatient medication, medical followup and persistent smoking and drinking in the setting of alcoholic cirrhosis. PLAN: The plan at present is to maintain this patient in the critical care unit where he will receive 0.9 saline at 100 mL per hour while reloading the patient with Florinef 0.1 mg p.o. b.i.d. and ProAmatine 10 mg p.o. b.i.d., to be adjusted base on clinical response. He continues on Zofran 4 mg p.o. q. 8 hours p.r.n. nausea and vomiting. He will receive Remeron 15 mg p.o. at bedtime, Prozac 10 mg p.o. daily, Protonix 40 mg p.o. b.i.d., ProAmatine 10 mg p.o. b.i.d., Neurontin 300 mg p.o. t.i.d., Lidoderm 5% patch to affected spinal arthritic area p.r.n. daily, Lasix 40 mg p.o. daily, Geodon 20 mg p.o. q.6 hours p.r.n. anxiety or agitation, Ativan 0.5 mg p.o. t.i.d. p.r.n. anxiety and Aldactone 25 mg p.o. b.i.d. He continues to be followed by gastroenterology, hematology/oncology endocrinology, neurology and psychiatry. He will have serial labs, receive bedside therapy and once medically cleared will need to resume his care in the psychiatric unit. I did discuss all of the above in detail with the patient; his nurse, Carissa Larkin and co-consultants and greater than 1 hour was spent in the critical care management of this patient today. Overall prognosis, though poor is stable at present. Sidra Ann MD [facility]
[2017-02-10] MEDS: Lidocaine 5% Patch TD PRN (09:54)
--- NOTE | 2017-02-10 14:30 | PN ---
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 His latest chemistry showed a BUN of 11, sodium 142, potassium 3.9, chloride 111, CO2 29, glucose 81, and creatinine 0.6. The reported serum cortisol level was 2.7 mcg/dL, which is quite low at this time, especially with the fact that the patient has intercurrent physical stressors as noted thereof. His thyroid study showed a T4 of 5.0 with a TSH of 1.11. So, at this time, we will start him right away on oral steroid replacement therapy for management of hypoadrenalism or adrenal insufficiency, which actually would be long-term steroid replacement therapy as discussed with the patient at bedside. We will start him on cortisone acetate, given a 50 mg every 9:00 a.m. daily and 25 mg every 05:00 p.m. daily to start tonight. We will obtain serum chemistry and supplement accordingly as needed. We will also obtain serial cortisol levels and titrate his dose regimen accordingly as needed. We will follow this. Di Clarke MD
[2017-02-10] MEDS ORDERED: Magnesium Oxide 400 mg Tab UD PO SCH (18:00)
[2017-02-10] MEDS ORDERED: CORTISONE PO SCH (18:00)
[2017-02-10] MEDS: CORTISONE PO SCH (18:44)
--- NOTE | 2017-02-10 20:16 | CP.PCM.CON ---
History of Present Illness - History of Present Illness History of Present Illness: 46 yo man with history of alcoholic liver cirrhosis and splenomegaly, h/o Farhad's disease, h/o Guillain Belcher syndrome, admitted from the Psych unit after he c/o feeling weak and dizzy and was found to have a low BP, being followed by endo. Patient was found to have significant pancytopenia, no fever or active bleeding noted. Work up showing normal B12 levels, boderline Ferritin. He was given a single dose of Neupogen without any increase in WBC count, patient also c/o low back pain after the shot. Denies fevers, chills, seats. Still c/o lightheadedness when propped up. Past Patient History - Past Social History Smoking Status: Former Smoker - CARDIAC Hx Cardiac Disorders: No - PULMONARY Hx Respiratory Disorders: No - NEUROLOGICAL Hx Neurological Disorder: No - HEENT Hx HEENT Problems: No - RENAL Hx Chronic Kidney Disease: No - ENDOCRINE/METABOLIC Hx Endocrine Disorders: Yes (Farhad's dz ) - HEMATOLOGICAL/ONCOLOGICAL Hx Blood Disorders: No - INTEGUMENTARY Hx Dermatological Problems: No - MUSCULOSKELETAL/RHEUMATOLOGICAL Hx Musculoskeletal Disorders: No Hx Back Pain: Yes - GASTROINTESTINAL Other/Comment: cirrhosis - GENITOURINARY/GYNECOLOGICAL Hx Genitourinary Disorders: No - PSYCHIATRIC Hx Depression: Yes Hx Substance Use: No - SURGICAL HISTORY Hx Appendectomy: Yes - ANESTHESIA Hx Anesthesia: Yes Meds Allergies/Adverse Reactions: Allergies Allergy/AdvReac Type Severity Reaction Status Date / Time No Known Allergies Allergy Verified 02/06/17 02:58 - Medications Medications: Current Medications Acetaminophen (Tylenol 325mg Tab) 650 mg PO Q4H PRN PRN Reason: Pain, Mild (1-3) Al Hydrox/Mg Hydrox/Simethicone (Maalox Plus 30 Ml) 30 ml PO DAILY PRN PRN Reason: .upset stomach Cortisone Acetate (Cortisone Acetate) 50 mg PO DAILY [facility] Cortisone Acetate (Cortisone Acetate) 25 mg PO QPM [facility] Last Admin: 02/10/17 18:44 Dose: 25 mg Fludrocortisone Acetate (Florinef) 0.1 mg PO BID [facility] Last Admin: 02/10/17 18:43 Dose: 0.1 mg Fluoxetine HCl (Prozac) 10 mg PO DAILY [facility] Last Admin: 02/10/17 09:50 Dose: 10 mg Furosemide (Lasix) 40 mg PO DAILY [facility] Last Admin: 02/10/17 09:51 Dose: 40 mg Gabapentin (Neurontin) 300 mg PO TID [facility] PRN Reason: Protocol Last Admin: 02/10/17 18:43 Dose: 300 mg Sodium Chloride (Sodium Chloride 0.9%) 1,000 mls @ 100 mls/hr IV .Q10H [facility] Last Admin: 02/10/17 03:00 Dose: 100 mls/hr Lactulose (Enulose) 20 gm PO HS [facility] Lidocaine (Lidoderm) 1 ea TD DAILY PRN PRN Reason: back pain Last Admin: 02/10/17 09:54 Dose: 1 ea Lorazepam (Ativan) 0.5 mg PO TID PRN; Protocol PRN Reason: Anxiety Magnesium Hydroxide (Milk Of Magnesia) 30 ml PO DAILY PRN PRN Reason: Constipation Magnesium Oxide (Mag-Ox) 400 mg PO BID [facility] Stop: 02/12/17 08:00 Last Admin: 02/10/17 18:43 Dose: 400 mg Midodrine (Proamatine) 10 mg PO BID [facility] Last Admin: 02/10/17 18:43 Dose: 10 mg Mirtazapine (Remeron) 15 mg PO HS [facility] Last Admin: 02/09/17 21:57 Dose: 15 mg Ondansetron HCl (Zofran Tab) 4 mg PO Q8H PRN PRN Reason: Nausea/Vomiting Last Admin: 02/08/17 05:39 Dose: 4 mg Rifaximin (Xifaxan) 550 mg PO BID [facility] PRN Reason: Protocol Last Admin: 02/10/17 18:43 Dose: 550 mg Spironolactone (Aldactone) 25 mg PO BID [facility] Last Admin: 02/10/17 18:44 Dose: Not Given Ziprasidone (Geodon Cap) 20 mg PO Q6H PRN; Protocol PRN Reason: Agitation Results - Vital Signs Recent Vital Signs: Last Vital Signs Temp 97.5 F L 02/10/17 04:00 Pulse 64 02/10/17 18:50 Resp 17 02/10/17 18:50 BP 87/32 L 02/10/17 18:00 Pulse Ox 92 L 02/09/17 12:40 - Labs Result Diagrams: 02/10/17 05:00 02/10/17 05:00 Labs: Laboratory Results - last 24 hr 02/10/17 02/10/17 02/10/17 05:00 05:00 05:00 WBC 1.8 L* RBC 3.82 Hgb 12.1 L Hct 35.2 L MCV 92.1 MCH 31.7 MCHC 34.4 RDW 15.6 H Plt Count 87 L MPV 10.3 Sodium 142 Potassium 3.9 Chloride 111 H Carbon Dioxide 29 Anion Gap 6 L BUN 11 Creatinine 0.6 Est GFR ( Amer) > 60 Est GFR (Non-Af Amer) > 60 Random Glucose 81 Calcium 8.3 L Magnesium 1.6 L Total Bilirubin 1.1 AST 41 ALT 35 Alkaline Phosphatase 55 Ammonia Total Protein 5.9 Albumin 2.5 L Globulin 3.3 Albumin/Globulin Ratio 0.8 L Alpha Fetoprotein < 0.8 02/10/17 13:30 WBC RBC Hgb Hct MCV MCH MCHC RDW Plt Count MPV Sodium Potassium Chloride Carbon Dioxide Anion Gap BUN Creatinine Est GFR ( Amer) Est GFR (Non-Af Amer) Random Glucose Calcium Magnesium Total Bilirubin AST ALT Alkaline Phosphatase Ammonia 58 H Total Protein Albumin Globulin Albumin/Globulin Ratio Alpha Fetoprotein Assessment & Plan (1) Pancytopenia Assessment and Plan: 40 yo man admitted with hypotension and a history of [place]'s disease, found to have asymptomatic pancytopenia, no significant improvement with SubQ Granix most likely secondary to hypersplenism. Because of lack of abnormal cells in periphery, hold off on bone marrow work up or additional growth factors for now, unless patient becomes febrile. Continue PO folic acid Status: Acute
--- NOTE | 2017-02-10 23:12 | CON ---
CONSULT DATE: 02/10/2017 HISTORY OF PRESENT ILLNESS: The patient is a 46-year-old white male with self-reported history of bipolar disorder with psychiatric admissions in the past as well as suicide attempts, who was transferred from [facility] for evaluation of depression and suicidal thoughts and then was admitted to the CCU due to hypotension and bradycardia. Psychiatrist is following up with the patient and I visited the patient again today. Presently, the patient remains depressed. Affect is congruent. Indicates that he still does not feel medically well. His energy is poor and continues to have hopelessness. The patient is not suicidal, he is not hallucinating, and delusions were not elicited as per conversation. The patient's responses were very relevant and clear and focus was fair during the interview. Nursing note indicate that the patient has been in control on the unit and the patient is alert and oriented x3. Presently, the patient also reports that he is tolerating his medications, denies any major side effects. Vital signs and laboratory data were reviewed by this provider. MEDICATIONS: Relevant psychiatric medications include Prozac 10 mg daily, Neurontin 300 p.o. t.i.d., Ativan 0.5 t.i.d., Remeron 15 mg p.o. at bedtime, and Geodon 20 mg p.o. q. 6 hours p.r.n. IMPRESSION: Bipolar disorder by history, alcohol dependency by history, rule out contribution of substance-induced mood disorder, rule out adjustment disorder with mood and anxiety, rule out amplification of symptoms for secondary gain. PLAN: At this time, we will continue with current treatment plan. I will make a small adjustment in Prozac 20 mg daily as the patient has been tolerating this medication and this is the minimum therapeutic dose. At this time, medical team should be adjusting the patient's benzos and tapering down as his vitals tolerates for alcohol withdrawal. Psychiatry will continue to follow him for mood and anxiety issues until he is cleared and then he agrees to be ultimately transferred to psychiatry for further treatment of his depressive symptoms. Justyna Ryan MD
[2017-02-11] MEDS: Sodium Chloride 0.9% 1,000 ML IV SCH ×2 (01:24→22:38)
--- NOTE | 2017-02-11 02:56 | PN ---
DATE: 02/10/2017 SUBJECTIVE: This patient was seen and evaluated earlier in the intensive care unit. Discussed with the nursing staff. Patient is comfortable. Tolerating the diet. No complains of any abdominal pain. PHYSICAL EXAMINATION VITAL SIGNS: Temperature 98.4, pulse is 57, respirations 15, and blood pressure remained still low, it was 91/40. HEENT: Atraumatic. Anicteric NECK: Supple. HEART: S1 and S2 heard. LUNGS: Bilateral air entry present. ABDOMEN: Soft. There is no mass. No tenderness. EXTREMITIES: No edema. No cyanosis. NEUROLOGIC: Alert and oriented. SKIN: Multiple tattoos present. LABORATORY DATA: WBC count still remains low at 1.8, hemoglobin 12.1, hematocrit 35.2 and platelets 87. Chemistry showed magnesium low at 1.6 and albumin 2.5. Absolute neutrophil count is low at 0.68. IMPRESSION: This is a 46-year-old patient transferred from the psychiatric floor for weakness mainly in the lower extremities. The patient has: 1. History of cirrhosis, history of ETOH in the past, history of esophageal varices in the past, workup done was in [facility]. The patient did have an elevated ammonia level on admission. The patient was on lactulose 20 mg 4 times a day which was changed to Xifaxan 550 b.i.d. along with lactulose once a day. Repeat ammonia level shows 5.58 still. 2. The patient has Farhad's disease, being followed by the pesticide use medical coordinator on steroid, replace supplement. 3. Pancytopenia, followed by the head of drama. I would request differential count in a.m. 4. History of Guillain-Thermal's syndrome, being evaluated by the neurologist this admission. The gait imbalance is thought to be related to the lumbar spine surgery and also multilevel degenerative disk disease. 5. He has a history of depression, history of suicidal attempt in the past. RECOMMENDATIONS: 1. We will continue the Xifaxan 550 mg b.i.d. along with lactulose 20 mg daily. We will increase the dose based on the ammonia level and a clinical status in a.m. 2. Followup of the hepatitis profile and ultrasound scan which has been requested. Also requested alpha fetoprotein tumor marker. 3. Pancytopenia. Being followed up by the hematology. Would patient did have a neutropenia, would request differential count in a.m. Other comorbidities include depression, leg gait imbalance, and history of Guillain-Thermal disease. Thank you very much. We will get the records from the [facility] and review that. Thank you very much for allowing me to participate in the care of the patient. Francisco Javier Navarro MD
--- NOTE | 2017-02-11 07:04 | PN ---
DATE: 02/10/2017 CRITICAL CARE PROGRESS NOTE SUBJECTIVE: This is a 46 [id number] who was examined in CCU bed 4. His case was reviewed in detail with himself, nursing and co-consultants. The patient remains hospitalized in the setting of hypotension and comorbidities of alcoholic cirrhosis, bipolar psychosis, anxiety, recurrent depression and suicidal ideation. The patient also has pancytopenia most likely secondary to his alcohol abuse history and recent drinking despite his knowledge of alcoholic cirrhosis and esophageal varices. The patient also has spinal stenosis, arthritis, history of Guillain-Marion syndrome in 09/2016 and also history of adrenal insufficiency, peripheral neuropathy and peptic ulcer disease. The patient at present remains dizzy, he is sitting ICU in a recumbent position with his legs higher than heart receiving IV fluids and being reinstituted with Florinef and cortisone acetate under the direction of Dr. Di Clarke from Endocrinology. At present, the patient denies any fever, chills, chest pain, shortness of breath, hematemesis, melena or hemoptysis and is in normal sinus rhythm on the telemetry nurse. PHYSICAL EXAMINATION: VITAL SIGNS: Current vital signs showed temperature 97.5, respirations 16, pulse 60 and blood pressure 90/60, earlier 127/64. HEENT: Head is normocephalic and atraumatic. Eyes, no icterus. NECK: Supple. HEART: Regular. S1 and S2. No pathological rubs, murmurs, or gallops. LUNGS: Clear to auscultation. ABDOMEN: Obese. Nontender without palpable organomegaly. No rebound, no guarding, no tenderness. EXTREMITIES: Showed no clubbing, no cyanosis, no edema. SKIN: No rash. VASCULAR: Legs warm to touch. PSYCHOLOGICAL: Alert and oriented x3. NEUROLOGICAL: Grossly intact with 4/5 motor strength in his right lower extremity and in all other limbs are 5/5. LABORATORY DATA: White count 1800, hemoglobin 12.1, hematocrit 35.2, platelets 87,000. PT/INR 1.24, PTT 32.1. Sodium 142, potassium 3.9, chloride 111, bicarbonate 29, BUN 11, creatinine 0.6, random blood sugar was 81. Magnesium level was 1.6 low, normal 1.7 to 2.2. Ammonia level 58, AST 41, ALT 35, alkaline phosphatase 55, alpha fetoprotein less than 0.8, TSH 1.11 normal. Cortisol low 2.7, cholesterol low 82. Urinalysis unremarkable. Microbiology: MRSA negative, urine culture no growth. CSF; spinal cultures no growth at 48 hours IMPRESSION: This is a 46-year-old male with initial admission for anxiety, depression and suicidal ideation with complications of adrenal insufficiency, hypotension, cirrhosis, elevated ammonia levels, hypomagnesemia, spinal arthritis, peripheral neuropathy and pancytopenia probably secondary to chronic alcoholism and cirrhosis. PLAN: At present is to continue critical care monitoring of this patient with multisystem dysfunction. He will continues to be followed by his psychiatry for his depression. Neurology is evaluating him for his lower extremity weakness and history of guillain-barre in the setting of spinal arthritis. Endocrinology is evaluating his adrenal insufficiency. Hematology is following regarding his pancytopenia. Gastroenterology has seen him regarding his history of cirrhosis with elevated ammonia levels. The plan at present is to continue spironolactone 25 mg p.o. b.i.d., Ativan 0.5 mg p.o. t.i.d., p.r.n., anxiety. I will have endocrinology clarify his orders for cortisone 50 mg p.o. daily along with Florinef 0.1 mg p.o. b.i.d., He continues on Lactulose 20 g p.o. at bedtime as well as rifaximin 550 mg p.o. b.i.d. The patient will continue on Geodon 20 mg p.o. q. 6 hours p.r.n. agitation, Lasix 40 mg p.o. daily, Lidoderm patch to affected spinal area daily p.r.n. pain, mag oxide 400 mg p.o. b.i.d. for 48 hours, while monitoring his magnesium levels, gabapentin 300 mg p.o. t.i.d., ProAmatine 10 mg p.o. b.i.d. Given his thrombocytopenia and absence of GI symptoms his Protonix will be discontinued. He will continue on Prozac 10 mg p.o. daily, magnesium and Amphojel 30 mL p.o. daily p.r.n. dyspepsia along with Remeron 50 mg p.o. at bedtime, 0.9 saline at 100 mL per hour and Zofran 4 mg p.o. q. 8 hours p.r.n., nausea and vomiting. He is ordered to have a abdominal ultrasound for further evaluation of his cirrhosis of the liver, he is having pulse ox performed continuously. He continues on a bland diet and will have a serial labs, neuro checks, SCD, antiembolism stockings and physical therapy for ambulation safety when stable. All of the above was discussed in the detail with the patient, nursing and co-consultants and greater than one hour was spent in the critical care management of this patient today. Overall prognosis is poor but is currently stable. Sidra Ann MD MTDD
[2017-02-11 08:44] LABS: HEMATOCRIT 39.7 % (42.0-52.0); MEAN CELL VOLUME 92.8 fl (80.0-105.0); MEAN CORPUSCULAR HGB CONC 34.5 g/dl (31.0-37.0); MEAN PLATELET VOLUME 11.2 fl (7.0-11.0); RED CELL DISTRIBUTION WIDTH 15.6 % (11.5-14.5)
[2017-02-11] MEDS: CORTISONE PO SCH ×3 (08:44→17:54)
[2017-02-11 08:46] LABS: WHITE BLOOD COUNT 1.7 10^3/ul (4.5-11.0)
[2017-02-11 08:56] LABS: EOS % 6.4 % (1.5-5.0); GRAN # 0.78 (1.4-6.5); GRAN % 45.3 % (50.0-68.0); LYMPH % 32.6 % (22.0-35.0); MONO % 15.7 % (1.0-6.0)
[2017-02-11 08:57] LABS: EOS # 0.1 (0.0-0.7); LYMPH # 0.6 (1.2-3.4); MONO # 0.3 (0.1-0.6)
--- NOTE | 2017-02-11 09:43 | PN ---
LOCATION: U 129, room 4. SUBJECTIVE: This is a 46-year-old male with underlying chronic schizoaffective disorder and major depression, presenting here with generalized body weakness and orthostatic hypotension, has now been started on Florinef and ProAmatine medications as noted. He is also being evaluated from the endocrine view point for a possible endocrinopathy causing the above mentioned generalized body weakness and constitutional symptoms thereof. His latest chemistry showed a BUN of 11, sodium 141, potassium 4.0, chloride 111, CO2 of 25, glucose 89 and creatinine 0.6. His thyroid study shows a T4 of 5.0 with a TSH 1.11. His serum cortisol level is pending at this time as there is a significant history of [place]'s disease diagnosed about 2 years ago, but the patient has been off oral steroid therapy for the last 2 years till the present time. His thyroid studies are consistent with the so called acute sick euthyroid syndrome, but does not require any kind of thyroid pharmaco therapy. We will await the results of the serum cortisol ACTH level which will confirm and/or indicate the presence of possible adrenal insufficiency. We will do a Cortrosyn stimulation test to confirm and/or indicate the presence of underlying adrenal insufficiency, but only as indicated and we will await the result of the serum cortisol ACTH levels as ordered. We will follow and advise accordingly. Di Clarke MD
[2017-02-11] MEDS: Magnesium Oxide 400 mg Tab UD PO SCH ×4 (10:40→22:18)
--- NOTE | 2017-02-11 12:06 | CP.PCM.PN ---
<Tamy Irby - Last Filed: 02/11/17 12:07> Subjective - Date & Time of Evaluation Date of Evaluation: 02/11/17 Time of Evaluation: 09:40 - Subjective Subjective: Seen and examined at the bedside earlier today. The chart was reviewed. Patient is awake, and alert and aware of surroundings, denies nausea, vomiting or abdominal pain. He went for ultrasound this morning. No acute overnight events reported. Objective - Vital Signs/Intake and Output Vital Signs (last 24 hours): Temp Pulse Resp BP Pulse Ox 97.9 F 58 L 11 L 101/16 L 92 L 02/11/17 04:00 02/11/17 06:00 02/11/17 06:00 02/11/17 10:45 02/09/17 12:40 Intake and Output: 02/11/17 02/11/17 06:59 18:59 Intake Total 1120 Output Total 550 Balance 570 - Medications Medications: Current Medications Acetaminophen (Tylenol 325mg Tab) 650 mg PO Q4H PRN PRN Reason: Pain, Mild (1-3) Al Hydrox/Mg Hydrox/Simethicone (Maalox Plus 30 Ml) 30 ml PO DAILY PRN PRN Reason: .upset stomach Cortisone Acetate (Cortisone Acetate) 50 mg PO DAILY [facility] Last Admin: 02/11/17 11:49 Dose: 50 mg Cortisone Acetate (Cortisone Acetate) 25 mg PO QPM [facility] Last Admin: 02/10/17 18:44 Dose: 25 mg Fludrocortisone Acetate (Florinef) 0.2 mg PO BID [facility] Fluoxetine HCl (Prozac) 10 mg PO DAILY [facility] Last Admin: 02/11/17 10:44 Dose: 10 mg Furosemide (Lasix) 40 mg PO DAILY [facility] Last Admin: 02/11/17 10:45 Dose: 40 mg Gabapentin (Neurontin) 300 mg PO TID [facility] PRN Reason: Protocol Last Admin: 02/11/17 10:40 Dose: 300 mg Sodium Chloride (Sodium Chloride 0.9%) 1,000 mls @ 100 mls/hr IV .Q10H [facility] Last Admin: 02/11/17 01:24 Dose: 100 mls/hr Lactulose (Enulose) 20 gm PO HS [facility] Last Admin: 02/10/17 21:55 Dose: 20 gm Lidocaine (Lidoderm) 1 ea TD DAILY PRN PRN Reason: back pain Last Admin: 02/10/17 09:54 Dose: 1 ea Lorazepam (Ativan) 0.5 mg PO TID PRN; Protocol PRN Reason: Anxiety Magnesium Oxide (Mag-Ox) 400 mg PO QID [facility] Stop: 02/13/17 08:00 Last Admin: 02/11/17 10:40 Dose: 400 mg Midodrine (Proamatine) 10 mg PO BID [facility] Last Admin: 02/11/17 10:43 Dose: 10 mg Mirtazapine (Remeron) 15 mg PO HS [facility] Last Admin: 02/10/17 21:55 Dose: 15 mg Ondansetron HCl (Zofran Tab) 4 mg PO Q8H PRN PRN Reason: Nausea/Vomiting Last Admin: 02/08/17 05:39 Dose: 4 mg Rifaximin (Xifaxan) 550 mg PO BID [facility] PRN Reason: Protocol Last Admin: 02/11/17 10:40 Dose: 550 mg Ziprasidone (Geodon Cap) 20 mg PO Q6H PRN; Protocol PRN Reason: Agitation - Labs Labs: 02/11/17 08:20 02/10/17 05:00 PT 13.4 Seconds (9.9-11.8) H 02/07/17 20:19 INR 1.24 (0.93-1.08) H 02/07/17 20:19 APTT 32.1 Seconds (23.7-30.8) H 02/07/17 20:19 - Constitutional Appears: No Acute Distress - Eye Exam Eye Exam: Normal appearance. absent: Scleral icterus - ENT Exam ENT Exam: Mucous Membranes Moist - Neck Exam Neck Exam: Normal Inspection - Respiratory Exam Respiratory Exam: NORMAL BREATHING PATTERN. absent: Respiratory Distress - Cardiovascular Exam Cardiovascular Exam: +S1, +S2 - GI/Abdominal Exam GI & Abdominal Exam: Soft, Normal Bowel Sounds. absent: Guarding, Tenderness, Rebound - Extremities Exam Extremities Exam: Normal Capillary Refill. absent: Calf Tenderness - Neurological Exam Neurological Exam: Alert, Awake, Oriented x3 - Skin Skin Exam: Dry, Warm Assessment and Plan - Assessment and Plan (Free Text) Assessment: Assessment: Generalized weakness History of cirrhosis, history of EtOH, hep panel and AFP are negative History of esophageal varices Millard's disease Pancytopenia Depression History of [place] gloria Plan: Check ammonia level Continue lactulose and Xifaxan Monitor electrolytes Continue diet as tolerated Follow-up abdominal ultrasound final report Seen and discussed with Dr. Navarro <Francisco Javier Navarro V - Last Filed: 02/11/17 22:59> Objective - Vital Signs/Intake and Output Vital Signs (last 24 hours): Temp Pulse Resp BP Pulse Ox 98.5 F 60 11 L 101/57 L 95 02/11/17 16:00 02/11/17 18:00 02/11/17 18:00 02/11/17 17:01 02/11/17 18:00 Intake and Output: 02/11/17 02/12/17 18:59 06:59 Intake Total 900 Output Total 1200 Balance -300 - Medications Medications: Current Medications Acetaminophen (Tylenol 325mg Tab) 650 mg PO Q4H PRN PRN Reason: Pain, Mild (1-3) Al Hydrox/Mg Hydrox/Simethicone (Maalox Plus 30 Ml) 30 ml PO DAILY PRN PRN Reason: .upset stomach Cortisone Acetate (Cortisone Acetate) 50 mg PO DAILY [facility] Last Admin: 02/11/17 11:49 Dose: 50 mg Cortisone Acetate (Cortisone Acetate) 25 mg PO QPM [facility] Last Admin: 02/11/17 17:54 Dose: 25 mg Fludrocortisone Acetate (Florinef) 0.2 mg PO BID [facility] Last Admin: 02/11/17 17:54 Dose: 0.2 mg Fluoxetine HCl (Prozac) 10 mg PO DAILY [facility] Last Admin: 02/11/17 10:44 Dose: 10 mg Furosemide (Lasix) 40 mg PO DAILY [facility] Last Admin: 02/11/17 10:45 Dose: 40 mg Gabapentin (Neurontin) 300 mg PO TID [facility] PRN Reason: Protocol Last Admin: 02/11/17 17:53 Dose: 300 mg Sodium Chloride (Sodium Chloride 0.9%) 1,000 mls @ 100 mls/hr IV .Q10H [facility] Last Admin: 02/11/17 22:38 Dose: 100 mls/hr Lactulose (Enulose) 20 gm PO TID [facility] Last Admin: 02/11/17 17:55 Dose: 20 gm Lidocaine (Lidoderm) 1 ea TD DAILY PRN PRN Reason: back pain Last Admin: 02/10/17 09:54 Dose: 1 ea Lorazepam (Ativan) 0.5 mg PO TID PRN; Protocol PRN Reason: Anxiety Magnesium Oxide (Mag-Ox) 400 mg PO QID [facility] Stop: 02/13/17 08:00 Last Admin: 02/11/17 22:18 Dose: 400 mg Midodrine (Proamatine) 10 mg PO BID [facility] Last Admin: 02/11/17 17:53 Dose: 10 mg Mirtazapine (Remeron) 15 mg PO HS [facility] Last Admin: 02/11/17 22:19 Dose: 15 mg Ondansetron HCl (Zofran Tab) 4 mg PO Q8H PRN PRN Reason: Nausea/Vomiting Last Admin: 02/08/17 05:39 Dose: 4 mg Rifaximin (Xifaxan) 550 mg PO BID [facility] PRN Reason: Protocol Last Admin: 02/11/17 17:53 Dose: 550 mg Ziprasidone (Geodon Cap) 20 mg PO Q6H PRN; Protocol PRN Reason: Agitation - Labs Labs: 02/11/17 08:20 02/10/17 05:00 PT 13.4 Seconds (9.9-11.8) H 02/07/17 20:19 INR 1.24 (0.93-1.08) H 02/07/17 20:19 APTT 32.1 Seconds (23.7-30.8) H 02/07/17 20:19 Attending/Attestation - Attestation I have personally seen and examined this patient.: Yes I have fully participated in the care of the patient.: Yes I have reviewed all pertinent clinical information, including history, physical exam and plan: Yes Notes (Text): This an addendum to GI process report dictated by Tamy Chan's DIRECTOR MEETINGS, the patient was seen and evaluated earlier. Appears alert but still ammonia levels mines elevated at 51. The lactulose dose has been increased by Dr. Ann. Would need close monitoring of electrolytes and stool output. History of Millard's disease, cirrhosis of the liver decompensated, gait dysfunction type weakness degenerative spinal disc disease, history of Guillain- Gloria in the past History of pancytopenia being followed by a financial analyst Hepatitis profile negative. History of esophageal increases we will try to get the report from [facility] Follow the labs in a.m. follow up ammonia levels. 02/11/17 22:56
--- NOTE | 2017-02-11 12:32 | US ---
HISTORY: cirrhosis of liver COMPARISON: None. TECHNIQUE: Sonographic evaluation of the abdomen. FINDINGS: LIVER: Measures 20.4 cm. Diffusely increased echogenicity of the liver parenchyma. Consistent with fatty infiltration. Smooth contour. No mass. No biliary ductal dilatation. GALLBLADDER: Not well visualized. Possibly contracted at time of examination. COMMON BILE DUCT: Measures 7 mm. No stones. No dilatation. PANCREAS: Limited visualization. RIGHT KIDNEY: Measures 11.2cm. Normal echogenicity. No calculus, mass, or hydronephrosis. LEFT KIDNEY: Measures 11.8cm. Normal echogenicity. No calculus, mass, or hydronephrosis. SPLEEN: The spleen is enlarged, measuring 14.9 cm greatest dimension. No focal mass is identified. AORTA: No aneurysmal dilatation. IVC: Unremarkable. OTHER FINDINGS: Incidentally noted recannulized umbilical vein IMPRESSION: Enlarged liver with diffuse fatty infiltration. Gallbladder poorly visualized. Possibly contracted at time of examination. Limited visualization of pancreas. Splenomegaly. Incidentally noted recannulized umbilical vein.
--- NOTE | 2017-02-11 15:27 | CP.PCM.PCO ---
Physician Communication Note - Physician Communication Note Physician Communication Note: no acute issues will f/u tomorrow
--- NOTE | 2017-02-11 18:32 | PN ---
DATE: 02/11/2017 CRITICAL CARE PROGRESS NOTE SUBJECTIVE: This 46-year-old male who was examined at his bedside in CCU bed 4. His case has been reviewed in detail with himself, nursing and co-consultants. The patient at this point in time is receiving IV saline along with cortisone acetate, Florinef and ProAmatine for symptomatic hypotension and adrenal insufficiency. The patient also is being treated for alcoholic cirrhosis, pancytopenia, spinal arthritis and peripheral neuropathy. The patient was admitted with anxiety, depression, bipolar psychosis and suicidal ideation and at present, denies any complaints of fever, chills, shortness of breath, nausea, vomiting, hematemesis or melena. He remains in a normal sinus rhythm on the diagnostic cardiac sonographer. His pulse ox is 98% on room air. PHYSICAL EXAMINATION VITAL SIGNS: Blood pressure is 92/51, pulse 58, respiration is 12. He is a febrile. HEENT: Head is normocephalic and atraumatic. Eyes, no icterus. Ears, clear. Throat, non-injected. NECK: Supple. HEART: Regular. S1 and S2. LUNGS: Clear. ABDOMEN: Soft. EXTREMITIES: No clubbing, no cyanosis, no edema. SKIN: Without rash. NEUROLOGICAL: Grossly intact. PSYCHOLOGICAL: Alert and oriented x3. VASCULAR: Legs warm to touch. LABORATORY DATA: White count 1700, hemoglobin 13.7, hematocrit 39.7, platelets 104,000. PT/INR 1.24, PTT 32.1. Sodium 142, potassium 3.9, chloride 111, bicarbonate 29, BUN 11, creatinine 0.6, random blood sugar 81. Magnesium level was low at 1.5, bilirubin 1.1, AST 41, ALT 35, alkaline phosphatase 55, ammonia level 51 previously 58. Alpha fetoprotein level less than 0.8, TSH normal 1.1. Cholesterol 82, cortisol low 2.7, B12 normal 523. Hepatitis A, B, C serology is negative. IMPRESSION: A 46-year-old male with chronic liver cirrhosis, elevated ammonia levels with recent suicidal ideation in the setting of bipolar psychosis, anxiety, depression and chronic adrenal insufficiency now with hypotension and symptomatic dizziness secondary to noncompliance with adrenal hormone replacement therapy as an outpatient. Also with spinal arthritis, hypomagnesemia, peripheral neuropathy, chronic depression, degenerative arthritis, elevated ammonia levels and hypomagnesemia. PLAN: At present is to obtain an abdominal ultrasound for further evaluation of the cirrhosis of the liver. He will continue on Zofran 4 mg p.o. q. 8 hours p.r.n. nausea, vomiting, rifaximin 550 mg p.o. b.i.d. with lactulose increasing to 30 mL or 20 g p.o. t.i.d. He also will continue on one dose of Solu-Cortef 100 mg IV push as discussed with Dr. Di Clarke from Endocrinology, we will also increasing his Florinef to 0.2 mg p.o. b.i.d. and continuing his cortisone acetate 50 mg p.o. a.m. 25 mg p.o. q. p.m. He will continue on Lasix 40 mg p.o. daily, Lidoderm patch to affected spinal area daily p.r.n. pain, his magnesium oxide has been increased to 400 mg p.o. q.i.d. while monitoring magnesium levels daily and he continues on Neurontin 300 mg p.o. t.i.d. for spinal arthritis related peripheral neuropathy. He is receiving Prozac 10 mg p.o. daily, Remeron 15 mg p.o. at bedtime and all of his psychotropic medication will be adjusted by psychiatry. He will continue on 0.9 saline at 100 mL per hour. He is out of bed to chair. He is ordered to have an ammonia level and magnesium level repeated in the a.m. and the case has been discussed with Dr. Mix regarding the pancytopenia which he feels is secondary to his liver cirrhosis and splenomegaly and for which no further workup is indicated at the present time. He will continue in critical care on continuous pulse ox monitoring. He is on a bland diet with no sodium restrictions. He remains on aspiration and fall precautions with neuro checks q. 2 hours and is wearing SCD antiembolism stockings. He is ordered to have physical therapy for weakness and reconditioning and all of the above has been discussed in detail with himself, nursing and co-consultants. Greater than one hour was spent in the care, management and discussion and adjustment of medication for this critical care unit patient today. Sidra Ann MD [facility] # [id number] GIOVANNY
--- NOTE | 2017-02-11 21:09 | PN ---
LOCATION: CCU 129, room 4. 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 He continues to have low normal blood pressure, systolic levels and generalized body weakness with episodic bouts of dizziness and lightheadedness as noted thereof. His latest serum cortisol level is 2.7 mcg/dL and the latest chemistry showed a BUN of 11, sodium 142, potassium 3.9, chloride 111, CO2 of 29, glucose 81 and creatinine 0.6. At this time, we will give him a stat dose of hydrocortisone given at 100 mg IV piggyback today as ordered. We will continue the modified oral steroid replacement therapy with cortisone given as 50 mg after breakfast and 25 mg after dinner to start today. We will titrate incrementally as indicated to optimize metabolic control. Moreover, we will also increase the Florinef to 0.2 mg p.o. b.i.d. for 5 days to start today as ordered. We will obtain serial chemistries and supplement accordingly as needed. We will follow. Di Clarke MD
[2017-02-12 07:54] LABS: ALB/GLOB RATIO 0.7 (1.1-1.8); ALKALINE PHOSPHATASE 54 U/L (38-126); ALT/SGPT 28 U/L (7-56); AST/SGOT 29 U/L (17-59); BILIRUBIN,TOTAL 1.5 mg/dL (0.2-1.3); BLOOD UREA NITROGEN 12 mg/dL (7-21); CALCIUM 8.7 mg/dL (8.4-10.5); CARBON DIOXIDE 24 mmol/L (21-33); CHLORIDE 110 mmol/L (95-110); GFR AFRICAN-AMERICAN > 60; GLUCOSE,RANDOM 80 mg/dL (70-110); MAGNESIUM 1.6 mg/dL (1.7-2.2); POTASSIUM 3.9 mmol/L (3.6-5.0); SODIUM 141 mmol/L (132-148); TOTAL PROTEIN 6.4 g/dL (5.8-8.3)
[2017-02-12] MEDS: Magnesium Oxide 400 mg Tab UD PO SCH ×4 (10:29→21:17)
[2017-02-12] MEDS: CORTISONE PO SCH ×2 (12:19→20:33)
--- NOTE | 2017-02-12 16:04 | PN ---
SUBJECTIVE: The patient is a 46-year-old male. The patient has history of depression as well as anxiety. The patient also has multiple medical issues including history of cirrhosis, history of esophageal varices, Farhad disease, pancytopenia, and history of Guillain-[place] syndrome. The patient was initially transferred to the Psychiatric Inpatient Unit but was found to have generalized weakness as well as low blood pressure, needed to be transferred to Intensive Care Unit. This journalists and other writers is following the patient. The patient presented to be depressed, flat affect, reported that he did not sleep that well. The patient reported that he feels hopeless and helpless. The patient said that he has poor relationship with his girlfriend who suffers from bipolar disorder. The patient said that he has poor social support. The patient denied thought of killing himself but reported that he could not see future for himself. The patient had ultrasound of the abdomen, was found to have cirrhosis of the liver. The patient also found to have splenomegaly. The patient also had thoracic spine MRI which was found to have to multiple degenerative disk disease, worse at T7 and T8. The patient also had lumbar spine MRI, multiple degenerative disk disease worse in L4 and L5, and also cervical spine MRI, multiple degenerative disease was found as well. The patient also had brain MRI which found mild atrophy and no evidence of acute infarction. The patient was seen by GI team as well as endocrinology team. Endocrinology team increased the dose of Florinef to 0.2 mg twice a day for 5 days. The patient also was seen by GI team which found cirrhosis and history of esophageal varices as well as pancytopenia which could be related to the liver disease. PHYSICAL EXAMINATION: VITAL SIGNS: This journalists and other writers reviewed vital signs. Pulse is 52, blood pressure is 159/59, respirations 20, oxygen saturation is 96. MEDICATIONS: Reviewed. This journalists and other writers will increase the dose of Prozac to 20 mg a day. The patient also is on Ativan as needed, but the patient did not ask for that medication and Remeron 15 mg at the night time for insomnia. The patient was on Latuda prior to coming to the hospital, this journalists and other writers is not sure why the patient was taking that medication. LABORATORY DATA: Microbiology reviewed. Reports reviewed. MENTAL STATUS EXAMINATION: The patient appears to be depressed, flat affect, intermittent eye contact. Speech was low volume, underproductive. Thought process coherent and goal directed. Thought content: The patient denied visual, auditory or tactile hallucinations. Denied paranoid ideation. The patient denied thought of killing himself or others, but reported to feel hopeless. Insight and judgement is improving. Impulses are well controlled. IMPRESSION: Rule out major depressive disorder. The patient has history of alcohol use disorder, rule out mood disorder due to general medical condition. PLAN: Continue current management. Prozac was increased to 20 mg daily, Remeron 15 mg at the night time, Neurontin 300 mg 3 times a day. The patient is on as-needed benzodiazepine. We will follow up and advise accordingly. Should you have any questions, give me a call back. Management of this patient took more than 30 minutes. Thank you so much for letting me to participate in care of your patient. Lexie Jolley MD
--- NOTE | 2017-02-12 16:29 | CP.PCM.PN ---
<Melanie,Kovil V - Last Filed: 02/12/17 23:12> Objective - Vital Signs/Intake and Output Vital Signs (last 24 hours): Temp Pulse Resp BP Pulse Ox 98.7 F 66 19 91/55 L 96 02/12/17 12:00 02/12/17 22:00 02/12/17 12:00 02/12/17 12:00 02/12/17 04:00 - Medications Medications: Current Medications Acetaminophen (Tylenol 325mg Tab) 650 mg PO Q4H PRN PRN Reason: Pain, Mild (1-3) Al Hydrox/Mg Hydrox/Simethicone (Maalox Plus 30 Ml) 30 ml PO DAILY PRN PRN Reason: .upset stomach Cortisone Acetate (Cortisone Acetate) 75 mg PO DAILY [facility] Cortisone Acetate (Cortisone Acetate) 50 mg PO QPM [facility] Last Admin: 02/12/17 20:33 Dose: 50 mg Fludrocortisone Acetate (Florinef) 0.2 mg PO BID [facility] Last Admin: 02/12/17 19:35 Dose: 0.2 mg Fluoxetine HCl (Prozac) 20 mg PO DAILY [facility] Furosemide (Lasix) 40 mg PO DAILY [facility] Last Admin: 02/12/17 10:32 Dose: 40 mg Gabapentin (Neurontin) 300 mg PO TID [facility] PRN Reason: Protocol Last Admin: 02/12/17 19:35 Dose: 300 mg Sodium Chloride (Sodium Chloride 0.9%) 1,000 mls @ 100 mls/hr IV .Q10H [facility] Last Admin: 02/11/17 22:38 Dose: 100 mls/hr Lactulose (Enulose) 20 gm PO QID [facility] Last Admin: 02/12/17 21:17 Dose: 20 gm Lidocaine (Lidoderm) 1 ea TD DAILY PRN PRN Reason: back pain Last Admin: 02/10/17 09:54 Dose: 1 ea Lorazepam (Ativan) 0.5 mg PO TID PRN; Protocol PRN Reason: Anxiety Magnesium Oxide (Mag-Ox) 400 mg PO QID [facility] Stop: 02/13/17 08:00 Last Admin: 02/12/17 21:17 Dose: 400 mg Midodrine (Proamatine) 10 mg PO TID [facility] Mirtazapine (Remeron) 15 mg PO HS [facility] Last Admin: 02/12/17 21:17 Dose: 15 mg Ondansetron HCl (Zofran Tab) 4 mg PO Q8H PRN PRN Reason: Nausea/Vomiting Last Admin: 02/08/17 05:39 Dose: 4 mg Rifaximin (Xifaxan) 550 mg PO BID SHAKEEL PRN Reason: Protocol Last Admin: 02/12/17 19:35 Dose: 550 mg Ziprasidone (Geodon Cap) 20 mg PO Q6H PRN; Protocol PRN Reason: Agitation - Labs Labs: 02/11/17 08:20 02/12/17 07:10 PT 13.4 Seconds (9.9-11.8) H 02/07/17 20:19 INR 1.24 (0.93-1.08) H 02/07/17 20:19 APTT 32.1 Seconds (23.7-30.8) H 02/07/17 20:19 Attending/Attestation - Attestation I have personally seen and examined this patient.: Yes I have fully participated in the care of the patient.: Yes I have reviewed all pertinent clinical information, including history, physical exam and plan: Yes Notes (Text): patient was seen and evaluated earlier. This is addendum to GI progress report dictated by Tamy Irby APN. Patient's ammonia level is still significantly elevated. Lactulose dose has been increased. Patient is also on xifaxan. Continue present treatment. Overall more irritable, and electrolytes 02/12/17 23:12 <Tamy Irby J - Last Filed: 02/13/17 08:06> Subjective - Date & Time of Evaluation Date of Evaluation: 02/12/17 Time of Evaluation: 08:45 - Subjective Subjective: Seen and examined earlier today. Patient reports having a BM yesterday, no BM today. Denies any overt GI bleed. Denies nausea, vomiting, abdominal pain. Tolerating breakfast so far.abdominal ultrasound shows enlarged liver with fatty liver, splenomegaly, CBD measures7 mm, no stones or dilatation. Objective - Vital Signs/Intake and Output Vital Signs (last 24 hours): Temp Pulse Resp BP Pulse Ox 98.7 F 60 19 91/55 L 96 02/12/17 12:00 02/12/17 12:00 02/12/17 12:00 02/12/17 12:00 02/12/17 04:00 Intake and Output: 02/12/17 02/12/17 06:59 18:59 Intake Total 1140 Output Total 1570 Balance -430 - Medications Medications: Current Medications Acetaminophen (Tylenol 325mg Tab) 650 mg PO Q4H PRN PRN Reason: Pain, Mild (1-3) Al Hydrox/Mg Hydrox/Simethicone (Maalox Plus 30 Ml) 30 ml PO DAILY PRN PRN Reason: .upset stomach Cortisone Acetate (Cortisone Acetate) 75 mg PO DAILY [facility] Cortisone Acetate (Cortisone Acetate) 50 mg PO QPM [facility] Fludrocortisone Acetate (Florinef) 0.2 mg PO BID [facility] Last Admin: 02/12/17 10:30 Dose: 0.2 mg Fluoxetine HCl (Prozac) 20 mg PO DAILY [facility] Furosemide (Lasix) 40 mg PO DAILY [facility] Last Admin: 02/12/17 10:32 Dose: 40 mg Gabapentin (Neurontin) 300 mg PO TID [facility] PRN Reason: Protocol Last Admin: 02/12/17 16:19 Dose: 300 mg Sodium Chloride (Sodium Chloride 0.9%) 1,000 mls @ 100 mls/hr IV .Q10H [facility] Last Admin: 02/11/17 22:38 Dose: 100 mls/hr Lactulose (Enulose) 20 gm PO TID [facility] Last Admin: 02/12/17 16:19 Dose: 20 gm Lidocaine (Lidoderm) 1 ea TD DAILY PRN PRN Reason: back pain Last Admin: 02/10/17 09:54 Dose: 1 ea Lorazepam (Ativan) 0.5 mg PO TID PRN; Protocol PRN Reason: Anxiety Magnesium Oxide (Mag-Ox) 400 mg PO QID [facility] Stop: 02/13/17 08:00 Last Admin: 02/12/17 16:19 Dose: 400 mg Midodrine (Proamatine) 10 mg PO BID [facility] Last Admin: 02/12/17 10:31 Dose: 10 mg Mirtazapine (Remeron) 15 mg PO HS [facility] Last Admin: 02/11/17 22:19 Dose: 15 mg Ondansetron HCl (Zofran Tab) 4 mg PO Q8H PRN PRN Reason: Nausea/Vomiting Last Admin: 09/08/17 05:39 Dose: 4 mg Rifaximin (Xifaxan) 550 mg PO BID SHAKEEL PRN Reason: Protocol Last Admin: 02/12/17 10:29 Dose: 550 mg Ziprasidone (Geodon Cap) 20 mg PO Q6H PRN; Protocol PRN Reason: Agitation - Labs Labs: 02/11/17 08:20 02/12/17 07:10 PT 13.4 Seconds (9.9-11.8) H 02/07/17 20:19 INR 1.24 (0.93-1.08) H 02/07/17 20:19 APTT 32.1 Seconds (23.7-30.8) H 02/07/17 20:19 - Constitutional Appears: No Acute Distress - Head Exam Head Exam: NORMOCEPHALIC - Eye Exam Eye Exam: Normal appearance. absent: Scleral icterus - ENT Exam ENT Exam: Mucous Membranes Moist - Neck Exam Neck Exam: Normal Inspection - Respiratory Exam Respiratory Exam: Clear to Ausculation Bilateral, NORMAL BREATHING PATTERN. absent: Respiratory Distress - Cardiovascular Exam Cardiovascular Exam: +S1 - GI/Abdominal Exam GI & Abdominal Exam: Soft, Normal Bowel Sounds. absent: Guarding, Tenderness, Rebound - Extremities Exam Extremities Exam: Normal Capillary Refill. absent: Calf Tenderness, Pedal Edema - Neurological Exam Neurological Exam: Alert, Awake, Oriented x3 Additional comments: notable bilateral hand tremors - Skin Skin Exam: Dry, Warm Assessment and Plan - Assessment and Plan (Free Text) Assessment: Assessment: Generalized weakness History of cirrhosis, history of EtOH, hep panel and AFP are negative History of esophageal varices [place]'s disease Pancytopenia Depression History of Enmanuel gloria Plan: trend ammonia level on lactulose 3 aday, increase qid, titrate to 2 stools per day, monitor closely Continue Xifaxan Monitor electrolytes Continue diet as tolerated Seen and discussed with Dr. Navarro
--- NOTE | 2017-02-12 23:46 | PN ---
ENDOCRINOLOGY FOLLOWUP NOTE LOCATION: ROOM #270. 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 His repeat chemistry showed a BUN of 12, sodium 141, potassium 3.9, chloride 110, CO2 of 24, glucose 80 and creatinine 0.5. His magnesium level is 1.6 with an albumin level of 2.7 and the repeat serum cortisol of 2.0. We will expect low normal serum cortisol level because of the underlying moderate hypoalbuminemia with lower cortisol binding globulin as expected and also, low-normal cortisol level as evident by chemically. So, at this time, we will modify once again her cortisone acetate and increase the level to 75 mg p.o. every morning and 60 mg p.o. every evening as ordered to start tonight. We also gave a stat dose of hydrocortisone given as a 100 mg IV piggyback yesterday as given. We will obtain serial chemistries and supplement accordingly as needed. We will also continue the Florinef given as 0.2 mg b.i.d. as ordered. We will titrate incrementally as indicated to optimize metabolic control. Because of the underlying metabolic dysfunction, would expect his systolic blood pressure to be at least in the 90 to 110 mmHg range as expected. We will obtain serial chemistries and supplement accordingly as needed. Di Clarke MD
--- NOTE | 2017-02-13 00:37 | PN ---
DATE: 02/12/2017 SUBJECTIVE: This 46-year-old male was examined at his bedside. He is on the cardiac unit at the [facility]. He remains in a normal sinus rhythm on the director of cardiac rehabilitation; however, his hypotension persists and he does complain of mild lightheadedness and occasional dizziness. He has not been able to do physical therapy due to his debilitated clinical state and he continues to have a flat affect. He is being followed by psychiatry because of suicidal ideation, anxiety, depression and bipolar psychosis and has multiple metabolic problems including Farhad's disease, hypotension, spinal arthritis, right leg weakness, cirrhosis of the liver, pancytopenia, persistent hypotension, hypomagnesemia, peripheral neuropathy and degenerative arthritis. The patient denies any fever, chills, chest pain, shortness of breath, hemoptysis, hematemesis, or melena. He does have a history of esophageal varices, cirrhosis of the liver, splenomegaly, and active pancytopenia. Prior to this hospitalization, he was noncompliant with all medication and was admitted with multiple medical and psychiatric comorbidities as listed above. At present, he denies any suicidal or homicidal ideation. PHYSICAL EXAMINATION VITAL SIGNS: He is in a normal sinus rhythm on the director of cardiac rehabilitation with a temperature of 98.7, respirations 19, pulse 60, and blood pressure 91/55. Pulse ox was 96% on room air. HEENT: Head is normocephalic and atraumatic. Eyes: No icterus. Ears clear. Throat non-injected. NECK: Supple. HEART: Regular. S1 and S2. No pathological rubs, murmurs, or gallops. LUNGS: Clear. ABDOMEN: Obese, nontender, no palpable organomegaly. No rebound, no guarding, no tenderness. EXTREMITIES: No clubbing, no cyanosis, no edema. SKIN: Without ulcers or rash. Multiple tattoos on all arms and legs. NEUROLOGICAL: Unchanged. PSYCHOLOGICAL: Alert and oriented x3. VASCULAR: Legs warm to touch. LABORATORY DATA: Labs show white count 1700; hemoglobin 13.7; hematocrit 39.7; platelets 104,000. PT/INR 1.24, PTT 32.1. Sodium 141, potassium 3.9, chloride 110, bicarbonate 24, BUN 12, creatinine 0.5, random blood sugar 80. Magnesium 1.6, previously 1.5. Bilirubin 1.5, AST 29, ALT 28, and alk phos 54. Ammonia level 71, previously 51. Alpha fetoprotein less than 0.8. Cortisol remains low at 2, normal is 4.46 to 22.7. Urinalysis unremarkable. Hepatitis A, B, C serology negative. 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 PLAN: At present is to keep the patient on the cardiac unit. He will require medication including rifaximin 500 mg p.o. b.i.d. He did receive one dose of Solu-Cortef 100 mg IV for his severe adrenal insufficiency while also receiving supplementation as per endocrinology with cortisone acetate 50 mg p.o. in the evening and 75 mg in the morning. This is the dose adjusted based on his repeat low cortisol levels. He also continues on Florinef 0.2 mg p.o. b.i.d. and 0.9 saline at 100 mL per hour with added salt to his food. He will have his lactulose increased to 20 g p.o. q.i.d. until we can observe an improvement in his ammonia levels. It should be noted the patient is not encephalopathic at this time. He will also continue on Lasix 40 mg p.o. daily, Lidoderm to his spine for pain control p.r.n. daily, magnesium oxide 400 mg p.o. q.i.d. while monitoring magnesium levels, Neurontin 300 mg p.o. t.i.d., ProAmatine 10 mg p.o. t.i.d. because of symptomatic hypotension and Prozac 20 mg p.o. daily, Remeron 15 mg p.o. at bedtime, and Ativan 0.5 mg p.o. t.i.d. under the direction of psychiatry. He continues on a bland GI diet. He is having his pulse ox continuously monitored. He remains on aspiration and fall precautions with neuro checks q. shift and he is wearing antiembolism sequential stockings while in bed. He is ordered to have physical therapy for reconditioning and gait training. He will continue to be followed by gastroenterology, endocrinology, psychiatry, hematology-oncology, neurology and the ultimate plan will be to transfer this patient to the inpatient psychiatric unit when medically cleared. All of the above was discussed in detail with the patient, his nurse at the bedside and co-consultants. Greater than one hour was spent in the management, care and adjustment of orders and medications for this patient today. Sidra Ann MD MTDD
[2017-02-13] MEDS: Sodium Chloride 0.9% 1,000 ML IV SCH ×3 (00:49→20:54)
[2017-02-13] MEDS: CORTISONE PO SCH ×3 (10:00→18:12)
[2017-02-13] MEDS: Magnesium Oxide 400 mg Tab UD PO SCH ×3 (10:15→21:25)
--- NOTE | 2017-02-13 13:17 | CP.PCM.PCO ---
Physician Communication Note - Physician Communication Note Physician Communication Note: no acute isses, will f/u tomorrow
--- NOTE | 2017-02-13 13:26 | CP.PCM.PN ---
<Tamy Irby - Last Filed: 02/13/17 13:25> Subjective - Date & Time of Evaluation Date of Evaluation: 02/13/17 Time of Evaluation: 09:50 - Subjective Subjective: Seen and examined at the bedside earlier this morning, the chart was reviewed. Patient denies nausea, vomiting or abdominal pain. He reports having 1 formed bowel movement midday yesterday, denies any bleeding. Tolerating oral intake. No acute overnight events reported Objective - Vital Signs/Intake and Output Vital Signs (last 24 hours): Temp Pulse Resp BP Pulse Ox 98.2 F 60 19 112/68 94 L 02/13/17 12:00 02/13/17 12:00 02/13/17 12:00 02/13/17 12:00 02/13/17 06:00 Intake and Output: 02/13/17 02/13/17 06:59 18:59 Intake Total 1700 Output Total 600 Balance 1100 - Medications Medications: Current Medications Acetaminophen (Tylenol 325mg Tab) 650 mg PO Q4H PRN PRN Reason: Pain, Mild (1-3) Al Hydrox/Mg Hydrox/Simethicone (Maalox Plus 30 Ml) 30 ml PO DAILY PRN PRN Reason: .upset stomach Cortisone Acetate (Cortisone Acetate) 75 mg PO DAILY [facility] Last Admin: 02/13/17 10:16 Dose: 75 mg Cortisone Acetate (Cortisone Acetate) 50 mg PO QPM [facility] Last Admin: 02/12/17 20:33 Dose: 50 mg Fludrocortisone Acetate (Florinef) 0.2 mg PO BID [facility] Last Admin: 02/13/17 10:16 Dose: 0.2 mg Fluoxetine HCl (Prozac) 20 mg PO DAILY [facility] Last Admin: 02/13/17 10:16 Dose: 20 mg Gabapentin (Neurontin) 300 mg PO TID [facility] PRN Reason: Protocol Last Admin: 02/13/17 10:16 Dose: 300 mg Sodium Chloride (Sodium Chloride 0.9%) 1,000 mls @ 100 mls/hr IV .Q10H [facility] Last Admin: 02/13/17 12:00 Dose: 100 mls/hr Lactulose (Enulose) 20 gm PO QID [facility] Last Admin: 02/13/17 10:15 Dose: 20 gm Lidocaine (Lidoderm) 1 ea TD DAILY PRN PRN Reason: back pain Last Admin: 02/10/17 09:54 Dose: 1 ea Lorazepam (Ativan) 0.5 mg PO TID PRN; Protocol PRN Reason: Anxiety Magnesium Oxide (Mag-Ox) 400 mg PO QID [facility] Stop: 02/15/17 06:00 Last Admin: 02/13/17 10:15 Dose: 400 mg Midodrine (Proamatine) 10 mg PO TID [facility] Last Admin: 02/13/17 10:15 Dose: 10 mg Mirtazapine (Remeron) 15 mg PO HS [facility] Last Admin: 02/12/17 21:17 Dose: 15 mg Ondansetron HCl (Zofran Tab) 4 mg PO Q8H PRN PRN Reason: Nausea/Vomiting Last Admin: 02/08/17 05:39 Dose: 4 mg Rifaximin (Xifaxan) 550 mg PO BID [facility] PRN Reason: Protocol Last Admin: 02/13/17 10:17 Dose: 550 mg Ziprasidone (Geodon Cap) 20 mg PO Q6H PRN; Protocol PRN Reason: Agitation - Labs Labs: 02/11/17 08:20 02/12/17 07:10 PT 13.4 Seconds (9.9-11.8) H 02/07/17 20:19 INR 1.24 (0.93-1.08) H 02/07/17 20:19 APTT 32.1 Seconds (23.7-30.8) H 02/07/17 20:19 - Constitutional Appears: No Acute Distress - Head Exam Head Exam: NORMOCEPHALIC - Eye Exam Eye Exam: Normal appearance. absent: Scleral icterus - ENT Exam ENT Exam: Mucous Membranes Moist - Neck Exam Neck Exam: Normal Inspection - Respiratory Exam Respiratory Exam: NORMAL BREATHING PATTERN. absent: Respiratory Distress - Cardiovascular Exam Cardiovascular Exam: +S1, +S2 - GI/Abdominal Exam GI & Abdominal Exam: Soft, Normal Bowel Sounds. absent: Guarding, Tenderness, Rebound - Extremities Exam Extremities Exam: Normal Capillary Refill. absent: Calf Tenderness, Pedal Edema - Neurological Exam Neurological Exam: Alert, Awake, Oriented x3 Additional comments: less hand tremors noted - Skin Skin Exam: Dry, Warm Assessment and Plan - Assessment and Plan (Free Text) Assessment: Assessment: Generalized weakness History of cirrhosis, history of EtOH, hep panel and AFP are negative History of esophageal varices Meagher's disease Pancytopenia Depression History of [place] gloria Plan: trend ammonia level, today's level improved continue lactulose 4 times a day, decrease if patient have diarrhea, monitor output Continue Xifaxan Monitor electrolytes Continue diet as tolerated, on soft bland diet Seen and discussed with Dr. Navarro <Francisco Javier Navarro V - Last Filed: 02/13/17 23:54> Objective - Vital Signs/Intake and Output Vital Signs (last 24 hours): Temp Pulse Resp BP Pulse Ox 97.5 F L 59 L 18 109/64 94 L 02/13/17 18:00 02/13/17 22:00 02/13/17 18:00 02/13/17 18:00 02/13/17 06:00 Intake and Output: 02/13/17 02/14/17 18:59 06:59 Intake Total 360 Output Total 700 Balance -340 - Medications Medications: Current Medications Acetaminophen (Tylenol 325mg Tab) 650 mg PO Q4H PRN PRN Reason: Pain, Mild (1-3) Al Hydrox/Mg Hydrox/Simethicone (Maalox Plus 30 Ml) 30 ml PO DAILY PRN PRN Reason: .upset stomach Cortisone Acetate (Cortisone Acetate) 75 mg PO DAILY [facility] Last Admin: 02/13/17 10:16 Dose: 75 mg Cortisone Acetate (Cortisone Acetate) 50 mg PO QPM [facility] Last Admin: 02/13/17 18:12 Dose: 50 mg Fludrocortisone Acetate (Florinef) 0.2 mg PO BID [facility] Last Admin: 02/13/17 17:50 Dose: 0.2 mg Fluoxetine HCl (Prozac) 20 mg PO DAILY [facility] Last Admin: 02/13/17 10:16 Dose: 20 mg Gabapentin (Neurontin) 300 mg PO TID [facility] PRN Reason: Protocol Last Admin: 02/13/17 21:24 Dose: 300 mg Sodium Chloride (Sodium Chloride 0.9%) 1,000 mls @ 100 mls/hr IV .Q10H [facility] Last Admin: 02/13/17 20:54 Dose: 100 mls/hr Lactulose (Enulose) 20 gm PO QID [facility] Last Admin: 02/13/17 21:25 Dose: 20 gm Lidocaine (Lidoderm) 1 ea TD DAILY PRN PRN Reason: back pain Last Admin: 02/10/17 09:54 Dose: 1 ea Lorazepam (Ativan) 0.5 mg PO TID PRN; Protocol PRN Reason: Anxiety Magnesium Oxide (Mag-Ox) 400 mg PO QID [facility] Stop: 02/15/17 06:00 Last Admin: 02/13/17 21:25 Dose: 400 mg Midodrine (Proamatine) 10 mg PO TID [facility] Last Admin: 02/13/17 21:23 Dose: 10 mg Mirtazapine (Remeron) 15 mg PO HS [facility] Last Admin: 02/13/17 21:25 Dose: 15 mg Ondansetron HCl (Zofran Tab) 4 mg PO Q8H PRN PRN Reason: Nausea/Vomiting Last Admin: 02/08/17 05:39 Dose: 4 mg Rifaximin (Xifaxan) 550 mg PO BID [facility] PRN Reason: Protocol Last Admin: 02/13/17 17:50 Dose: 550 mg Ziprasidone (Geodon Cap) 20 mg PO Q6H PRN; Protocol PRN Reason: Agitation - Labs Labs: 02/11/17 08:20 02/12/17 07:10 PT 13.4 Seconds (9.9-11.8) H 02/07/17 20:19 INR 1.24 (0.93-1.08) H 02/07/17 20:19 APTT 32.1 Seconds (23.7-30.8) H 02/07/17 20:19 Attending/Attestation - Attestation Notes (Text): This patient was seen and evaluated here earlier. This is an addendum to the GE progress report dictated by Tamy Irby APN More alert and comfortable. Abdomen soft no tenderness Continue Xifaxan and lactulose Follow-up ammonia levels 02/13/17 23:54
--- NOTE | 2017-02-13 13:46 | PN ---
DATE: 02/13/2017 SUBJECTIVE: This 46-year-old male was examined at his bedside. His case was reviewed in detail with himself and his nurse Magda Jaimes, registered nurse at the bedside. His case has also been discussed with his co-consultants in detail. The patient remains hospitalized on the cardiac unit. He remains lightheaded and dizzy and with elevated ammonia levels in the setting of advanced cirrhosis and history of noncompliance with diet, medication and medical followup. He was initially admitted with suicidal ideation, bipolar, psychosis, anxiety, and depression, however, because of hypotension and lightheadedness was admitted to intensive care,and also had evaluation that confirmed Farhad's disease, which was contributing to his hypotension as well as multiple medical comorbidities as previously listed. At present, he remains in a normal sinus rhythm on a clinical neuropsychologist. He remains anxious with a flat affect and has not been able to cooperate with physical therapy to date. PHYSICAL EXAMINATION VITAL SIGNS: His temperature is 97.3, respirations are 18, pulse is 61, and blood pressure is 109/56, previously 94/38 with a pulse oximetry of 94% on room air. HEENT: Head is normocephalic and atraumatic. Eyes; no icterus. NECK: Supple. HEART: Regular S1 and S2. No pathological rubs, murmurs, or gallops. LUNGS: Clear to auscultation. ABDOMEN: Obese and nontender. There is no palpable organomegaly. No rebound. No guarding. No tenderness. EXTREMITIES: Showed no clubbing, no cyanosis, and no edema. He is wearing his antiembolism stockings at present. VASCULAR: Legs are warm to touch. PSYCHOLOGICAL: He is alert and oriented x3. NEUROLOGIC: He is grossly intact. LABORATORY DATA: Labs showed white count of 1700; hemoglobin of 13.7; hematocrit of 39.7; and platelets of 104,000. PT/INR 1.24 and PTT of 32.1. Sodium of 141, potassium of 3.9, chloride of 110, bicarbonate of 24, BUN of 12, creatinine of 0.5, and random blood sugar was 80. Magnesium level was low at 1.6. Bilirubin is 1.5, AST is 29, ALT is 28, and alkaline phosphatase is 54. Ammonia level is 51, previously 71. Cortisol level on 02/12/2017, low 2.0. Hepatitis A, B and C panels are negative. IMPRESSION AND PLAN: This is a 46-year-old male with a history of advanced liver cirrhosis with history of esophageal varices with comorbidities of Farhad's disease, chronic hypotension, elevated ammonia levels, hypomagnesemia, spinal arthritis, degenerative arthritis, peripheral neuropathy, now with anxiety, depression, bipolar, psychosis with suicidal ideation. The patient denies that he is homicidal or suicidal at present. The plan is discussed in detail with the patient includes Zofran 4 mg p.o. q. 8 hours p.r.n. nausea and vomiting, rifaximin as per gastroenterology 550 mg p.o. b.i.d., 0.9 saline at 100 cc per hour, Remeron 15 mg p.o. at bet time , Prozac 20 mg p.o. daily, ProAmatine 10 mg p.o. t.i.d., Neurontin 300 mg p.o. t.i.d., and magnesium oxide 400 mg p.o. q.i.d. , while monitoring daily magnesium levels. The goal is to stop this medication within the next 48 hours. Lidoderm patch to affected skin area daily p.r.n., Florinef 0.2 mg p.o. b.i.d., cortisone acetate 75 mg p.o. a.m., 50 mg p.o. p.m. under the direction of Dr. Di Clarke from endocrinology, lactulose 20 grams p.o. q.i.d., and lorazepam 0.5 mg p.o. t.i.d. The patient on microbiology studies has had no methicillin-resistant Staphylococcus aureus detected and urine cultures that show no growth as well as cerebrospinal fluid that showed no growth. The patient will have a comprehensive metabolic panel in the a.m. and ammonia level in the a.m., and magnesium level in the a.m. He will continue to be followed by psychiatry, neurology, endocrinology, hematology, gastroenterology, and daily physical therapy. All of the above was discussed in detail with the patient and nurse at bedside and co-consultants, continues on aspiration, fall precautions, as well as neuro checks. He is ordered out-of-bed to chair and daily physical therapy for reconditioning and gait training and I anticipate this patient will need psychiatric inpatient stay once he is medically cleared. Approximately one hour was spent in the management, discussion and care of this patient today including adjustment of medical orders and outlining of care for the multiple medical problems that he is now encountering. Overall prognosis is poor, but remains stable at present. Sidra Ann MD MTDD
--- NOTE | 2017-02-13 22:52 | PN ---
ENDO FOLLOWUP NOTE DATE: LOCATION: Room #270. SUBJECTIVE: This is a 46-year-old male with persistent orthostatic hypotension and low normal hypotensive values presenting here with generalized body weakness and hypotension and is now being followed closely for metabolic management. He also has known history of Farhad's disease and recent hypoadrenalism as noted thereof. He also has pancytopenia and currently undergoing hematologic follow up as noted. LABORATORY DATA: His latest chemistry showed a BUN of 12, sodium 141, potassium 3.9, chloride 110, CO2 of 24, glucose 80 and creatinine 0.5. His magnesium levels remain low at 1.6 and the repeat serum cortisol level is 2.0 within albumin level of 6.7 mcg/dL. PLAN: So, at this time, we will continue the modified and higher dose of the cortisone acetate given as every morning and 50 mg every evening as ordered. We will continue Florinef at 0.2 mg b.i.d. as ordered. However, for eventual discharge we will recommend a lower dose of the Florinef to 0.1 mg b.i.d. as given. He has low normal potassium levels at this time. We will obtain serial chemistries and supplement accordingly as needed. We will follow with you. Di Clarke MD
[2017-02-14] MEDS: Magnesium Oxide 400 mg Tab UD PO SCH ×5 (02:11→22:51)
[2017-02-14 08:02] LABS: ALB/GLOB RATIO 0.8 (1.1-1.8); ALKALINE PHOSPHATASE 54 U/L (38-126); ALT/SGPT 36 U/L (7-56); AST/SGOT 25 U/L (17-59); BLOOD UREA NITROGEN 9 mg/dL (7-21); CALCIUM 7.4 mg/dL (8.4-10.5); CARBON DIOXIDE 27 mmol/L (21-33); CHLORIDE 111 mmol/L (98-107); GFR AFRICAN-AMERICAN > 60; GLUCOSE,RANDOM 96 mg/dL (70-110); MAGNESIUM 1.7 mg/dL (1.7-2.2); POTASSIUM 3.6 mmol/L (3.6-5.0); SODIUM 144 mmol/L (132-148); TOTAL PROTEIN 5.6 g/dL (5.8-8.3)
[2017-02-14] MEDS: Sodium Chloride 0.9% 1,000 ML IV SCH ×2 (08:57→17:51)
[2017-02-14] MEDS: CORTISONE PO SCH ×2 (11:31→17:50)
[2017-02-14 12:55] LABS: CORTISOL AM 2.7 ug/dL (4.46-22.7)
--- NOTE | 2017-02-14 15:39 | CP.PCM.PN ---
<Tamy Irby - Last Filed: 02/14/17 15:39> Subjective - Date & Time of Evaluation Date of Evaluation: 02/14/17 Time of Evaluation: 09:30 - Subjective Subjective: Seen and examined at the bedside earlier today, the chart was reviewed. Patient out of bed in Renea chair, report having formed bowel movement this morning, denies diarrhea or any GI bleeding. He does occasionally get right upper quadrant discomfort, he did have abdominal ultrasound a few days ago negative for any CBD stones or gallstones. Objective - Vital Signs/Intake and Output Vital Signs (last 24 hours): Temp Pulse Resp BP Pulse Ox 97.9 F 64 20 122/70 98 02/14/17 06:00 02/14/17 14:00 02/14/17 06:00 02/14/17 06:00 02/14/17 06:00 Intake and Output: 02/14/17 02/14/17 06:59 18:59 Intake Total 1800 Output Total 1300 500 Balance 500 -500 - Medications Medications: Current Medications Acetaminophen (Tylenol 325mg Tab) 650 mg PO Q4H PRN PRN Reason: Pain, Mild (1-3) Al Hydrox/Mg Hydrox/Simethicone (Maalox Plus 30 Ml) 30 ml PO DAILY PRN PRN Reason: .upset stomach Cortisone Acetate (Cortisone Acetate) 75 mg PO DAILY [facility] Last Admin: 02/14/17 11:31 Dose: 75 mg Cortisone Acetate (Cortisone Acetate) 50 mg PO QPM [facility] Last Admin: 02/13/17 18:12 Dose: 50 mg Fludrocortisone Acetate (Florinef) 0.2 mg PO BID [facility] Last Admin: 02/14/17 11:35 Dose: 0.2 mg Fluoxetine HCl (Prozac) 20 mg PO DAILY [facility] Last Admin: 02/14/17 11:31 Dose: 20 mg Gabapentin (Neurontin) 300 mg PO TID [facility] PRN Reason: Protocol Last Admin: 02/14/17 14:22 Dose: 300 mg Sodium Chloride (Sodium Chloride 0.9%) 1,000 mls @ 100 mls/hr IV .Q10H [facility] Last Admin: 02/14/17 08:57 Dose: 100 mls/hr Lactulose (Enulose) 20 gm PO Q4H [facility] Last Admin: 02/14/17 15:00 Dose: Not Given Lidocaine (Lidoderm) 1 ea TD DAILY PRN PRN Reason: back pain Last Admin: 02/10/17 09:54 Dose: 1 ea Lorazepam (Ativan) 0.5 mg PO TID PRN; Protocol PRN Reason: Anxiety Magnesium Oxide (Mag-Ox) 400 mg PO QID [facility] Stop: 02/15/17 06:00 Last Admin: 02/14/17 14:22 Dose: 400 mg Midodrine (Proamatine) 10 mg PO TID [facility] Last Admin: 02/14/17 14:22 Dose: 10 mg Mirtazapine (Remeron) 15 mg PO HS [facility] Last Admin: 02/13/17 21:25 Dose: 15 mg Ondansetron HCl (Zofran Tab) 4 mg PO Q8H PRN PRN Reason: Nausea/Vomiting Last Admin: 02/08/17 05:39 Dose: 4 mg Ziprasidone (Geodon Cap) 20 mg PO Q6H PRN; Protocol PRN Reason: Agitation - Labs Labs: 02/11/17 08:20 02/14/17 06:50 PT 13.4 Seconds (9.9-11.8) H 02/07/17 20:19 INR 1.24 (0.93-1.08) H 02/07/17 20:19 APTT 32.1 Seconds (23.7-30.8) H 02/07/17 20:19 - Constitutional Appears: No Acute Distress - Head Exam Head Exam: NORMAL INSPECTION - Eye Exam Eye Exam: Normal appearance. absent: Scleral icterus - ENT Exam ENT Exam: Mucous Membranes Moist - Neck Exam Neck Exam: Normal Inspection - Respiratory Exam Respiratory Exam: NORMAL BREATHING PATTERN. absent: Respiratory Distress - Cardiovascular Exam Cardiovascular Exam: +S1, +S2 - GI/Abdominal Exam GI & Abdominal Exam: Soft, Tenderness, Normal Bowel Sounds. absent: Guarding, Organomegaly, Rebound - Extremities Exam Extremities Exam: Normal Capillary Refill. absent: Calf Tenderness, Pedal Edema - Neurological Exam Neurological Exam: Alert, Awake, Oriented x3 - Skin Skin Exam: Dry, Warm Assessment and Plan - Assessment and Plan (Free Text) Assessment: Assessment: Improving Generalized weakness History of cirrhosis, history of EtOH, hep panel and AFP are negative History of esophageal varices Farhad's disease Pancytopenia Depression History of [place] gloria Plan: trend ammonia level continue lactulose 4 times a day, decrease if patient have diarrhea, monitor output Continue Xifaxan Monitor electrolytes Continue diet as tolerated, on soft bland diet Seen and discussed with Dr. Navarro <Francisco Javier Navarro V - Last Filed: 02/14/17 21:56> Objective - Vital Signs/Intake and Output Vital Signs (last 24 hours): Temp Pulse Resp BP Pulse Ox 97.9 F 59 L 17 90/48 L 98 02/14/17 06:00 02/14/17 18:00 02/14/17 18:00 02/14/17 18:00 02/14/17 06:00 Intake and Output: 02/14/17 02/15/17 18:59 06:59 Output Total 500 Balance -500 - Medications Medications: Current Medications Acetaminophen (Tylenol 325mg Tab) 650 mg PO Q4H PRN PRN Reason: Pain, Mild (1-3) Al Hydrox/Mg Hydrox/Simethicone (Maalox Plus 30 Ml) 30 ml PO DAILY PRN PRN Reason: .upset stomach Cortisone Acetate (Cortisone Acetate) 75 mg PO DAILY [facility] Last Admin: 02/14/17 11:31 Dose: 75 mg Cortisone Acetate (Cortisone Acetate) 50 mg PO QPM [facility] Last Admin: 02/14/17 17:50 Dose: 50 mg Fludrocortisone Acetate (Florinef) 0.2 mg PO BID [facility] Last Admin: 02/14/17 17:49 Dose: 0.2 mg Fluoxetine HCl (Prozac) 20 mg PO DAILY [facility] Last Admin: 02/14/17 11:31 Dose: 20 mg Gabapentin (Neurontin) 300 mg PO TID [facility] PRN Reason: Protocol Last Admin: 02/14/17 17:50 Dose: 300 mg Sodium Chloride (Sodium Chloride 0.9%) 1,000 mls @ 100 mls/hr IV .Q10H [facility] Last Admin: 02/14/17 17:51 Dose: 100 mls/hr Lactulose (Enulose) 20 gm PO Q4H [facility] Last Admin: 02/14/17 17:51 Dose: 20 gm Lidocaine (Lidoderm) 1 ea TD DAILY PRN PRN Reason: back pain Last Admin: 02/10/17 09:54 Dose: 1 ea Lorazepam (Ativan) 0.5 mg PO TID PRN; Protocol PRN Reason: Anxiety Magnesium Oxide (Mag-Ox) 400 mg PO QID [facility] Stop: 02/15/17 06:00 Last Admin: 02/14/17 17:49 Dose: 400 mg Midodrine (Proamatine) 10 mg PO TID [facility] Last Admin: 02/14/17 17:49 Dose: 10 mg Mirtazapine (Remeron) 15 mg PO HS [facility] Last Admin: 02/13/17 21:25 Dose: 15 mg Ondansetron HCl (Zofran Tab) 4 mg PO Q8H PRN PRN Reason: Nausea/Vomiting Last Admin: 02/08/17 05:39 Dose: 4 mg Ziprasidone (Geodon Cap) 20 mg PO Q6H PRN; Protocol PRN Reason: Agitation - Labs Labs: 02/11/17 08:20 02/14/17 06:50 PT 13.4 Seconds (9.9-11.8) H 02/07/17 20:19 INR 1.24 (0.93-1.08) H 02/07/17 20:19 APTT 32.1 Seconds (23.7-30.8) H 02/07/17 20:19 Attending/Attestation - Attestation I have personally seen and examined this patient.: Yes I have fully participated in the care of the patient.: Yes I have reviewed all pertinent clinical information, including history, physical exam and plan: Yes Notes (Text): This is an addendum to GI progress report dictated by Tamy Irby APN.The patient was seen and examined earlier. Medical records, lab studies, imagings were reviewed. Last 24 hours events reviewed. Agreed with the above treatment plan as outlined in Tamy Irby NP's notes the with the addition of the following Decompensated cirrhosis with encephalopathy, history of esophageal varices before ccontinue lactulose Follow-up electrolytes Continue xifaxan thank you very much for allowing us to precipitate in the care of the patient 02/14/17 21:55
--- NOTE | 2017-02-14 19:48 | PN ---
DATE: 02/14/2017 SUBJECTIVE: This 46-year-old male was examined at his bedside, and his case was reviewed in detail with himself, nursing and co-consultants. The patient remains out of bed to chair, wearing antiembolism stockings and also with persistent hypotension in the setting of Farhad's disease and noncompliance with outpatient medication for this problem as well as his chronic orthostatic hypotension for which he was prescribed midodrine, but did not take. At present, the patient denies any chest pain, shortness of breath, hematemesis or melena. He remains weak and deconditioned. He has been ordered to receive physical therapy, but has had none today and is also being monitored for elevated ammonia levels and previously low magnesium levels in the setting of advanced cirrhosis and a history of esophageal varices. On the cardiac cath tech, he is in a sinus rhythm. PHYSICAL EXAMINATION: VITAL SIGNS: Shows temperature 97.9, respirations 20, pulse 64, and blood pressure 94/49 with a pulse ox of 98% on room air. HEENT: Head is normocephalic and atraumatic. Eyes, no icterus. Ears, clear. Throat, not injected. NECK: Supple. HEART: Regular S1, S2. LUNGS: Clear. ABDOMEN: Obese. Nontender. No palpable organomegaly. No rebound, no guarding, no tenderness. EXTREMITIES: No clubbing, no cyanosis, no edema. He is wearing antiembolism stockings. SKIN: Warm and dry. NEUROLOGIC: Intact. PSYCHOLOGICAL: Alert with a flat affect. VASCULAR: Legs warm to touch. LABORATORY DATA: White count 1700, hemoglobin 13.7, hematocrit 39.7, platelets 104,000. PT/INR 1.24, PTT 32.1. Sodium 144, potassium 3.6, chloride 111, bicarbonate 27, BUN 9, creatinine 0.5, random blood sugar 96. His magnesium level was 1.7 therapeutic; bilirubin 1.0, AST 25, ALT 36, and alkaline phosphatase 54 with an ammonia level of 57 and normal is less than 33. Cortisol level 2.7 low, previously 2.0 therapeutic 4.46 or greater. Hepatitis A, B, C serology negative. IMPRESSION: A 46-year-old male with advanced cirrhosis, history of esophageal varices, now with elevated ammonia levels despite q. 6 hours lactulose with adrenal insufficiency, history of orthostatic hypotension, improving pancytopenia, degenerative arthritis, spinal arthritis, right leg weakness, improved; hypomagnesemia, peripheral neuropathy, history of bipolar, psychosis, anxiety, depression, and suicidal ideation and previous suicide attempts in his past. PLAN: At present is to maintain him on the cardiac unit. He is receiving 0.9 saline at 100 mL per hour. He has also ordered to receive Remeron 15 mg at bedtime, Prozac 20 mg p.o. daily, ProAmatine 10 mg p.o. t.i.d., Neurontin 300 mg p.o. t.i.d., magnesium oxide 400 mg p.o. q.i.d. Lidoderm patch to affected spinal area daily p.r.n., Florinef 0.2 mg p.o. b.i.d., lactulose has been increased to 30 mL p.o. q. 4 hours, cortisone acetate 75 mg p.o. a.m., 50 mg p.o. p.m. and the patient is ordered to have antiembolism stockings daily, magnesium level in the a.m. An ammonia level in the a.m. Continue soft bland diet, aspiration and fall precautions and neuro checks q. 2 hours. He is ordered to have physical therapy for reconditioning and gait training. The patient will ultimately need to have followup closely by his PMD as an outpatient and I anticipate he may require inpatient psychiatric unit stay once medically cleared. He continues to be followed by Psychiatry, Neurology, Hematology, Endocrinology, Gastroenterology. Overall prognosis remained poor, stable at present. The patient has long standing history of noncompliance with diet, medication and medical followup in his past. Greater than one hour was spent in the care, management and discussion of this patient today. Sidra Ann MD MTDD
--- NOTE | 2017-02-14 22:46 | PN ---
ENDOCRINOLOGY FOLLOWUP NOTE DATA: LOCATION: Room #270. This is a 46-year-old male with recent adrenal insufficiency related to [place]'s disease, presenting here with hypotension and generalized body weakness and is now being followed closely for metabolic management. He received IV steroid therapy and currently has a modified higher dosing of the oral steroid replacement therapy as given. The latest chemistry showed BUN of 9, sodium 144, potassium 3.6, chloride 111, CO2 of 27, glucose 96, and creatinine 0.5. His latest cortisol level is 2.7 mcg/dL with serum albumin of 2.4 and a corrected cortisol level of 6.7 mcg/dL. So, at this time, we will continue the modified cortisone acetate given a 75 mg every morning and 50 mg every evening as ordered. We will also continue the Florinef, given 0.2 mg b.i.d. as ordered. We will obtain serial chemistries and supplement accordingly as needed. We will follow. Di Clarke MD
[2017-02-15] MEDS: Sodium Chloride 0.9% 1,000 ML IV SCH ×4 (05:52→20:25)
[2017-02-15] MEDS: CORTISONE PO SCH ×2 (09:35→17:52)
--- NOTE | 2017-02-15 11:27 | CP.PCM.PN ---
<Tamy Irby - Last Filed: 02/15/17 11:25> Subjective - Date & Time of Evaluation Date of Evaluation: 02/15/17 Time of Evaluation: 09:50 - Subjective Subjective: S&E at bedside earlier today. Had BM x1 yesterday, formed, refused 2 evening doses of Lactulose. No BM yet this am, passing gas. No reports of bleeding. Ammonia improved today. Objective - Vital Signs/Intake and Output Vital Signs (last 24 hours): Temp Pulse Resp BP Pulse Ox 97.7 F 52 L 18 85/54 L 95 02/15/17 06:00 02/15/17 06:00 02/15/17 06:00 02/15/17 06:00 02/15/17 06:00 Intake and Output: 02/15/17 02/15/17 06:59 18:59 Intake Total 1200 Output Total 450 Balance 750 - Medications Medications: Current Medications Acetaminophen (Tylenol 325mg Tab) 650 mg PO Q4H PRN PRN Reason: Pain, Mild (1-3) Al Hydrox/Mg Hydrox/Simethicone (Maalox Plus 30 Ml) 30 ml PO DAILY PRN PRN Reason: .upset stomach Cortisone Acetate (Cortisone Acetate) 75 mg PO DAILY [facility] Last Admin: 02/15/17 09:35 Dose: 75 mg Cortisone Acetate (Cortisone Acetate) 50 mg PO QPM SHAKEEL Last Admin: 02/14/17 17:50 Dose: 50 mg Fludrocortisone Acetate (Florinef) 0.2 mg PO BID SHAKEEL Last Admin: 02/15/17 09:35 Dose: 0.2 mg Fluoxetine HCl (Prozac) 20 mg PO DAILY SHAKEEL Last Admin: 02/15/17 09:36 Dose: 20 mg Gabapentin (Neurontin) 300 mg PO TID SHAKEEL PRN Reason: Protocol Last Admin: 02/15/17 09:35 Dose: 300 mg Sodium Chloride (Sodium Chloride 0.9%) 1,000 mls @ 150 mls/hr IV .Q6H40M [facility] Lactulose (Enulose) 20 gm PO Q4H [facility] Last Admin: 02/15/17 09:39 Dose: 20 gm Lidocaine (Lidoderm) 1 ea TD DAILY PRN PRN Reason: back pain Last Admin: 02/10/17 09:54 Dose: 1 ea Lorazepam (Ativan) 0.5 mg PO TID PRN; Protocol PRN Reason: Anxiety Midodrine (Proamatine) 10 mg PO TID [facility] Last Admin: 02/15/17 09:35 Dose: 10 mg Mirtazapine (Remeron) 15 mg PO HS [facility] Last Admin: 02/14/17 22:51 Dose: 15 mg Ondansetron HCl (Zofran Tab) 4 mg PO Q8H PRN PRN Reason: Nausea/Vomiting Last Admin: 02/08/17 05:39 Dose: 4 mg Ziprasidone (Geodon Cap) 20 mg PO Q6H PRN; Protocol PRN Reason: Agitation - Labs Labs: 02/11/17 08:20 02/14/17 06:50 PT 13.4 Seconds (9.9-11.8) H 02/07/17 20:19 INR 1.24 (0.93-1.08) H 02/07/17 20:19 APTT 32.1 Seconds (23.7-30.8) H 02/07/17 20:19 - Constitutional Appears: No Acute Distress - Head Exam Head Exam: NORMOCEPHALIC - Eye Exam Eye Exam: Normal appearance. absent: Scleral icterus - ENT Exam ENT Exam: Mucous Membranes Moist - Neck Exam Neck Exam: Normal Inspection - Respiratory Exam Respiratory Exam: NORMAL BREATHING PATTERN. absent: Respiratory Distress - Cardiovascular Exam Cardiovascular Exam: +S1, +S2 - GI/Abdominal Exam GI & Abdominal Exam: Soft, Normal Bowel Sounds. absent: Guarding, Tenderness, Rebound - Extremities Exam Extremities Exam: Normal Capillary Refill. absent: Calf Tenderness, Pedal Edema - Neurological Exam Neurological Exam: Alert, Awake, Oriented x3 - Skin Skin Exam: Dry, Warm Assessment and Plan - Assessment and Plan (Free Text) Assessment: Assessment: Improving Generalized weakness History of cirrhosis, history of EtOH, hep panel and AFP are negative History of esophageal varices Nazareth's disease Hypotension Pancytopenia Depression History of Enmanuel gloria Plan: trend ammonia level continue lactulose 4 times a day, decrease if patient have diarrhea, monitor output Continue Xifaxan on Miadrone Monitor electrolytes Continue diet as tolerated, on soft bland diet as endocrinology FU Seen and discussed with Dr. Navarro <Francisco Javier Navarro V - Last Filed: 02/15/17 20:01> Objective - Vital Signs/Intake and Output Vital Signs (last 24 hours): Temp Pulse Resp BP Pulse Ox 98 F 71 16 107/66 95 02/15/17 11:36 02/15/17 18:00 02/15/17 11:36 02/15/17 11:36 02/15/17 06:00 Intake and Output: 02/15/17 02/16/17 18:59 06:59 Intake Total 1440 Output Total 0 Balance 1440 - Medications Medications: Current Medications Acetaminophen (Tylenol 325mg Tab) 650 mg PO Q4H PRN PRN Reason: Pain, Mild (1-3) Cortisone Acetate (Cortisone Acetate) 75 mg PO DAILY [facility] Last Admin: 02/15/17 09:35 Dose: 75 mg Cortisone Acetate (Cortisone Acetate) 50 mg PO QPM [facility] Last Admin: 02/15/17 17:52 Dose: 50 mg Fludrocortisone Acetate (Florinef) 0.2 mg PO BID [facility] Last Admin: 02/15/17 17:52 Dose: 0.2 mg Fluoxetine HCl (Prozac) 20 mg PO DAILY [facility] Last Admin: 02/15/17 09:36 Dose: 20 mg Gabapentin (Neurontin) 300 mg PO TID SHAKEEL PRN Reason: Protocol Last Admin: 02/15/17 17:51 Dose: 300 mg Hydrocortisone Sodium Succinate (Solu-Cortef) 50 mg IVP Q8 [facility] Last Admin: 02/15/17 14:12 Dose: 50 mg Sodium Chloride (Sodium Chloride 0.9%) 1,000 mls @ 150 mls/hr IV .Q6H40M [facility] Last Admin: 02/15/17 11:37 Dose: 150 mls/hr Lactulose (Enulose) 20 gm PO Q4H SHAKEEL Last Admin: 02/15/17 14:11 Dose: 20 gm Lidocaine (Lidoderm) 1 ea TD DAILY PRN PRN Reason: back pain Last Admin: 02/10/17 09:54 Dose: 1 ea Lorazepam (Ativan) 0.5 mg PO TID PRN; Protocol PRN Reason: Anxiety Midodrine (Proamatine) 10 mg PO TID [facility] Last Admin: 02/15/17 17:51 Dose: 10 mg Mirtazapine (Remeron) 15 mg PO HS [facility] Last Admin: 02/14/17 22:51 Dose: 15 mg Ondansetron HCl (Zofran Tab) 4 mg PO Q8H PRN PRN Reason: Nausea/Vomiting Last Admin: 02/08/17 05:39 Dose: 4 mg Ziprasidone (Geodon Cap) 20 mg PO Q6H PRN; Protocol PRN Reason: Agitation - Labs Labs: 02/11/17 08:20 02/14/17 06:50 PT 13.4 Seconds (9.9-11.8) H 02/07/17 20:19 INR 1.24 (0.93-1.08) H 02/07/17 20:19 APTT 32.1 Seconds (23.7-30.8) H 02/07/17 20:19 Attending/Attestation - Attestation I have personally seen and examined this patient.: Yes I have fully participated in the care of the patient.: Yes I have reviewed all pertinent clinical information, including history, physical exam and plan: Yes Notes (Text): 02/15/17 20:00 p
--- NOTE | 2017-02-15 15:12 | PN ---
DATE: 02/15/2017 SUBJECTIVE: This 46-year-old male was examined at his bedside. His case was reviewed in detail with himself, his nurse, Jacqueline Doss, and Dr. Di Clarke, rod welder. The patient was out-of-bed to chair, wearing antiembolism stockings and awaiting physical therapy. He still remains hypotensive and this was discussed with Dr. Clarke, who will be adjusting his medications with the addition of IV hydrocortisone. We also discussed that the patient will now be receiving 0.9 saline at 150 mL per hour in addition to his ProAmatine, Florinef and cortisone acetate. The patient at present has a corrected serum cortisol level that is low normal and complaints of intermittent lightheadedness. He is ordered to have physical therapy daily starting today and needs to be ambulated and has approximately 15 stairs in his home that needs to be navigated. On questioning the patient, he denied any headache, chest pain, shortness of breath, vomiting, diarrhea, hematemesis, or melena. Also, of note, his ammonia level has finally improved on adjusted lactulose 6 times daily with previous ammonia level being 57 and currently 31 with normal being less than 33. The patient is alert, oriented x3 and communicating fluently. distribution dispatcher shows a normal sinus rhythm. PHYSICAL EXAMINATION: VITAL SIGNS: Temperature 98, respirations 18, pulse 52, blood pressure 85/54, and pulse ox 95% on room air. HEENT: Head is normocephalic and atraumatic. Eyes; no icterus. Ears clear. Throat non-injected. NECK: Supple. HEART: Regular S1 and S2. No pathological rubs, murmurs, or gallops. LUNGS: Clear to auscultation. ABDOMEN: Obese, nontender without palpable organomegaly. No rebound. No guarding. No tenderness. EXTREMITIES: Showed no clubbing, no cyanosis, no edema. He is wearing antiembolism stockings. VASCULAR: Legs are warm to touch. PSYCHOLOGICAL: Alert and oriented x3. NEUROLOGIC: Grossly intact. LABORATORY DATA: White count 1700, hemoglobin 13.7, hematocrit 39.7, platelets 104,000. PT/INR 1.24, PTT 32.1. Sodium 144, K 3.6, chloride 111, bicarb 27, BUN 9, creatinine 0.5, random blood sugar is 96. Magnesium level normal 1.7, bilirubin 1.0, AST 25, ALT 36, alk phos 54, ammonia level normal 31, cortisol level 2.7. Hepatitis A, B, C serology negative. Microbiology report show no MRSA detected, Urine culture, no growth. CSF fluid, no growth. IMPRESSION: A 46-year-old male with pancytopenia, improving in the setting of alcohol toxicity, chronic alcoholism, alcohol abuse and misuse, admitted with alcohol withdrawal syndrome and psychological issues including suicidal ideation, which has resolved at present in the setting of bipolar, psychosis, anxiety, and recurrent depression with medical comorbidities of alcoholic cirrhosis in a patient who was actively drinking prior to admission, Hachita's disease, adrenal insufficiency for which he was noncompliant with outpatient medication, history of chronic hypotension, orthostatic hypotension, spinal arthritis, degenerative arthritis, peripheral neuropathy and history of noncompliance with diet, medication and medical followup in his past. PLAN: At present is to maintain him on the cardiac unit. He continues on 0.9 saline at 150 mL per hour, Remeron 15 mg p.o. at bedtime, Prozac 20 mg p.o. daily, ProAmatine 10 mg p.o. t.i.d., Neurontin 300 mg p.o. t.i.d., Florinef 0.2 mg p.o. b.i.d., lactulose 20 g p.o. q. 4 hours, cortisone 75 mg a.m., 50 mg p.o. q. p.m. and the patient will have repeat CBC in the a.m. He continues to be followed by Psychiatry, Neurology, Endocrinology, Hematology, Gastroenterology. He is going to continue with pulse ox monitoring. He is on a soft bland diet, aspiration precautions, fall precautions and neuro checks every shift. He is out-of-bed to chair with assistance daily. He is ordered to have physical therapy for reconditioning, gait training and staircase safety. The ultimate plan will be to medically stabilize this patient and have Psychiatry either admit him to inpatient psychiatric unit or clear him for discharge, and he will need close outpatient supervision with his PMD and co-consultants in [place], [place], where he resides. The patient's medical situation is complicated by his lack of compliance with diet, medication, and medical followup and persistent alcohol abuse and he has been advised of the untoward consequences he will face including morbidity and mortality for this persistent bad behavior. His overall prognosis remains poor. Greater than fifty minutes were spent in the care, coordination of care, review and adjustment of medical orders for this patient today. Overall prognosis is poor but stable at present. Sidra Ann MD MTDD
--- NOTE | 2017-02-15 16:42 | PN ---
SUBJECTIVE: The patient was followed up today. The patient was transferred from the psychiatric inpatient unit for low blood pressure, weakness. The patient has multiple medical comorbidities, please see medical team notes for more detailed information. The patient still has low blood pressure, on IV hydration. The patient said that he feels very weak as well as low energy and feeling not right from the medical standpoint. The patient reported that his mood related to the physical problems which he has. Besides that the patient reported that he tolerated medications well, denied any side effect. The patient has feeling of hopelessness, but denied any thought of killing himself or others. Based on reports from the delinquency prevention social worker, the patient is on probation, and the patient is not allowed to signed against medical advice, and the patient will be arrested upon discharge. PHYSICAL EXAMINATION: VITAL SIGNS: Stable but blood pressure still low 85/54, pulse of 58, , temperature 98, respiration 18, and oxygen saturation is 100%. MEDICATIONS: Reviewed. The patient was on Prozac 20 mg daily, Neurontin 300 mg 3 times a day, Ativan 0.5 mg 3 times a day as needed, the patient did not ask for it. The patient is on Remeron 15 mg at the night time and Geodon as needed for agitation, but the patient was not agitated or anxious. LABORATORY DATA: Reviewed. WBC is 1.7, hemoglobin 13.7, and hematocrit 39.7. Chemistry reviewed. Leukocyte esterase was traced. MENTAL STATUS EXAMINATION: The patient appears to be pale as well as flat affect, intermittent eye contact. Speech was underproductive and low volume. Mood described as hopeless, affect was constricted. Thought process was coherent and goal directed. Thought content: The patient denied visual, auditory or tactile hallucinations. Denied paranoid ideations. The patient denied thoughts of harming himself or others, but reported to feel hopeless. Insight and judgement is improving. Impulses are well controlled. IMPRESSION: As per history, the patient has major depressive disorder, rule out mood disorder due to general medical condition, history of alcohol use disorder, multiple medical issues. Please see Dr. Ann's note for more detailed information. PLAN: Continue current management. Continue current medication. The patient is not medically stable to be transferred back to the psychiatric inpatient unit. The patient is on probation, and the patient is not allowed to signed against medical advice. The patient has warrant for arrest after discharge. The patient most likely will be arrested. Upon discharge, project control officer needs to be contacted, phone number in the social work note. Should they have any question, give me a call back. This telegraphic typewriter installer asked the patient why patient will be arrested, the patient says hopefully that he will be not arrested and most likely it is related to the fact that the project control officer was not able to locate the patient. Over the weekend, Dr. Ryan will follow up on this patient. Should they have any questions, give me a call back Lexie Jolley MD
--- NOTE | 2017-02-16 00:31 | PN ---
ENDOCRINOLOGY FOLLOWUP NOTE LOCATION: Room #270. 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 His latest chemistry showed a BUN of 9, sodium 144, potassium 3.6, chloride 111, CO2 of 27, glucose 96, and creatinine 7.4. His albumin level is 2.4 and his serum cortisol level is 2.7 with a correction of 6.7 mcg/dL. 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 As discussed with the primary physician, we will actually be adding IV steroids at this time, again, to may be augment his systolic blood pressure in the low 100 range as indicated. We will add hydrocortisone given at 50 mg IV piggyback every 8 hours as ordered. We will continue the oral cortisone given at 75 mg every morning and 50 mg every evening as ordered. We will titrate incrementally as indicated to optimize metabolic control. We will follow and advise accordingly. Di Clarke MD
[2017-02-16] MEDS: Sodium Chloride 0.9% 1,000 ML IV SCH ×4 (03:18→21:29)
[2017-02-16 07:13] LABS: HEMATOCRIT 37.2 % (42.0-52.0); MEAN CELL VOLUME 92.8 fl (80.0-105.0); MEAN CORPUSCULAR HEMOGLOBIN 31.4 pg (25.0-35.0); MEAN CORPUSCULAR HGB CONC 33.9 g/dl (31.0-37.0); MEAN PLATELET VOLUME 10.7 fl (7.0-11.0); RED CELL DISTRIBUTION WIDTH 15.5 % (11.5-14.5); WHITE BLOOD COUNT 3.9 10^3/ul (4.5-11.0)
[2017-02-16 07:14] LABS: ALB/GLOB RATIO 0.7 (1.1-1.8); ALKALINE PHOSPHATASE 54 U/L (38-126); ALT/SGPT 31 U/L (7-56); AST/SGOT 23 U/L (17-59); BILIRUBIN,TOTAL 0.9 mg/dL (0.2-1.3); BLOOD UREA NITROGEN 9 mg/dL (7-21); CALCIUM 8.2 mg/dL (8.4-10.5); CARBON DIOXIDE 29 mmol/L (21-33); CHLORIDE 108 mmol/L (95-110); GFR AFRICAN-AMERICAN > 60; GLUCOSE,RANDOM 121 mg/dL (70-110); POTASSIUM 3.7 mmol/L (3.6-5.0); SODIUM 142 mmol/L (132-148); TOTAL PROTEIN 5.8 g/dL (5.8-8.3)
[2017-02-16] MEDS: CORTISONE PO SCH ×2 (09:38→18:11)
[2017-02-16 12:27] LABS: CORTISOL AM 42.8 ug/dL (4.46-22.7)
--- NOTE | 2017-02-16 16:17 | PN ---
DATE: 02/16/2017 SUBJECTIVE: This 46-year-old male was evaluated at the [facility] where he remains on the cardiac unit. He has persistent hypotension in the setting of adrenal insufficiency, orthostatic hypotension and history of noncompliance with diet, medication and medical follow up in his past. The patient is followed daily and remains hospitalized with multiple medical problems including alcohol abuse and misuse, alcohol toxicity, esophageal varices, and advanced liver cirrhosis with elevated ammonia levels as well as pancytopenia, adrenal insufficiency, spinal arthritis and resultant right leg weakness with suicidal ideation in the setting of anxiety, recurrent depression and bipolar psychosis. Of note, the patient remains in a normal sinus rhythm on the monitor and storage bin tender. However, he has persistent hypotension, and his medication further adjusted by Dr. Di Clarke from Endocrinology with the addition of parenteral hydrocortisone in addition to his cortisone acetate, Florinef and ProAmatine. On the monitor and storage bin tender, he is in a normal sinus rhythm. PHYSICAL EXAMINATION VITAL SIGNS: Temperature of 98.1, respirations 19, pulse 50, and blood pressure 94/53 with pulse ox 95% on room air. GENERAL: He denies any fever, chills, shortness of breath, cough or respiratory distress. HEENT: Head normocephalic, atraumatic. Eyes, no icterus. NECK: Supple. HEART: Regular S1 and S2. LUNGS: Clear to auscultation. ABDOMEN: Obese, nontender without palpable organomegaly. No rebound. No guarding. No tenderness. EXTREMITIES: No clubbing. No cyanosis. No edema. SKIN: Without rash. VASCULAR: Legs warm to touch. PSYCHOLOGICAL: Alert and oriented x3. NEUROLOGIC: Grossly intact. LABORATORY DATA: White count 3900, hemoglobin 12.6, hematocrit 37.2, platelet 105,000. Sodium 142, potassium 3.7, chloride 108, bicarb 29, BUN 9, creatinine 0.6. Random blood sugar 121. Magnesium level normal 1.7, bilirubin 0.9, AST 23, ALT 31, alk phos 54. Ammonia level 24. Cortisol level 42.8. Hepatitis A, B and C serology negative. IMPRESSION: A 46-year-old male with multiple medical problems including admission for suicidal ideation in the setting of recurrent depression, chronic anxiety and bipolar psychosis with comorbidities of adrenal insufficiency, liver cirrhosis, esophageal varices, admission with elevated ammonia level, orthostatic hypotension, spinal arthritis, degenerative arthritis, peripheral neuropathy and pancytopenia. It should be noted that yesterday the patient refused his lactulose dosing twice in the setting of absence of any loose bowel movement and knowledge that his ammonia levels were elevated for days and also with history of hepatic encephalopathy in his past. PLAN: At present is to maintain the patient's hospitalization on the cardiac [place]. The patient has serious issues with medical compliance during this hospital stay and in his past which complicate his morbidity and mortality given his multiple medical problems as listed above. The plan is to continue cortisone acetate 75 mg a.m. and 50 mg p.m., lactulose 20 g p.o. q. 6 hours, Florinef 0.2 mg b.i.d., Neurontin 300 mg p.o. t.i.d., ProAmatine 10 mg p.o. t.i.d. while wearing antiembolism stockings during the daytime and remove only at night. Continues on Prozac 20 mg p.o. daily, Remeron 15 mg p.o. at bedtime, 0.9 saline at 150 mL per hour, Solu-Cortef 50 mg IV q. 8 hours under the direction of Dr. Di Clarke from Endocrinology as well as continue his pulse ox monitoring, soft bland, hepatic diet, aspiration, fall precautions with neuro checks every shift. The patient is ordered to have physical therapy for ambulation safety. Upon medical clearance by co-consultants from GI, Hematology, Endocrinology and Neurology, I will ask Dr. Lexie Jolley from psychiatry to decide if he will need continued inpatient psychiatric stay or be ready for discharge. It should be noted again that there are serious concerns to his overall prognosis given his lack of medical compliance in the past, admission with an elevated ammonia level, alcohol level, all of this with his knowledge of severe alcoholic cirrhosis and noncompliance of diet, medication and medical followup in his past. All of this was reviewed again in detail with the patient at his bedside. Greater than sixty minutes was spent in the care and management of this patient today. This case has been discussed with himself, nursing and co-consultants. Overall prognosis remains poor. Sidra Ann MD MTDD
--- NOTE | 2017-02-17 03:21 | PN ---
ENDO FOLLOWUP NOTE DATE: LOCATION: Room #278. 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 He continues to have low normal systolic blood pressures and was started yesterday on IV steroid therapy because of the maximal oral steroid therapy being given at this time with persistent hypotension as noted. His repeat chemistries today showed a BUN of 9, sodium 142, potassium 3.7, chloride 108, CO2 of 29, glucose 121 and creatinine 0.6. The albumin level is 2.4 and his serum cortisol level is now 42.8 mcg/dL. So at this time, we will lower the dose regimen of the hydrocortisone to 50 mg q.12 hours to start today as ordered. We will titrate incrementally as indicated to optimize metabolic control. We will obtain serial chemistries and supplement accordingly as needed. We will also continue the oral supplementation with cortisone acetate given as 75 mg in the morning and 50 mg in the evening as ordered together with Florinef given 0.2 mg b.i.d. as ordered. We will titrate incrementally as indicated to optimize metabolic control. We will follow and advise accordingly. Di Clarke MD
[2017-02-17] MEDS: CORTISONE PO SCH ×2 (09:32→17:21)
[2017-02-17] MEDS: Sodium Chloride 0.9% 1,000 ML IV SCH ×3 (10:00→21:56)
--- NOTE | 2017-02-17 10:52 | PN ---
ENDOCRINOLOGY FOLLOWUP NOTE LOCATION: Room #270. SUBJECTIVE: This is a 46-year-old male with recent hypoadrenalism and persistent hypotension and has been started on low-dose IV steroid therapy as noted. His latest chemistries today showed a BUN of 9, sodium 142, potassium 3.7, chloride 108, CO2 of 29, glucose 121 and creatinine 0.6. His serum cortisol level is 42.8, so at this time, we will decrease his IV steroid therapy to hydrocortisone, given at 50 mg IV q. 12 hours as ordered. We will titrate incrementally as indicated to optimize metabolic control. We will obtain a repeat cortisol level and CMP tomorrow and adjust his dose regimen accordingly. We will continue the oral steroid replacement with cortisone acetate, given at 75 mg in the morning and 50 mg in the evening with Florinef given at 0.2 mg b.i.d. as ordered. We will adjust his dose regimen accordingly to optimize metabolic control. We will follow. Di Clarke MD
--- NOTE | 2017-02-17 16:07 | PN ---
SUBJECTIVE: This 46-year-old male was examined at his bedside. His case was reviewed in detail with himself, nursing and co-consultants. The patient was evaluated for physical therapy on 02/16/2017. He was able to walk 30 feet with a rolling walker and contact guard. He was assessed by physical therapy to be weak and deconditioned and they felt he will need subacute rehabilitation where he will be given gait training, staircase training, therapeutic exercises, therapeutic activities, neuromuscular reeducation and family education. He was recommended by therapy that this should be accomplished 5 times per weak for the next two weeks and subacute rehabilitation was the current recommendation. Physically, the patient denies any fevers, chills, chest pain, shortness of breath and remains in normal sinus rhythm on the monitor and storage bin tender. PHYSICAL EXAMINATION: VITAL SIGNS: Show temperature 98, respirations 20, pulse 55 and blood pressure 109/53 previously 115/52 with the pulse ox of 97% on room air. HEENT: Head normocephalic, atraumatic. Eyes, no icterus. Ears clear. Throat noninjected. NECK: Supple. HEART: Regular S1 and S2. LUNGS: Clear. ABDOMEN: Obese, nontender without palpable organomegaly. EXTREMITIES: No clubbing, no cyanosis, no edema. SKIN: Without rash. VASCULAR: Legs warm to touch. PSYCHOLOGIC: Alert and oriented x3. NEUROLOGIC: Grossly intact. LABORATORY DATA: White count 3900, hemoglobin 12.6, hematocrit 37.2, platelets 115,000. Sodium 142, potassium 3.7, chloride 108, bicarb 29, BUN 9, creatinine 0.6, random blood sugar is 121. All liver function testing was normal including bilirubin 0.9, AST 23, ALT 31 and alkaline phosphatase 54. Ammonia level 24 previously 31, normal. Cortisol level 42.8. Hepatitis A, B, C serology negative. IMPRESSION: A 46-year-old male with multiple medical problems, admitted with suicidal ideation in the setting of anxiety, depression and bipolar psychosis with medical complications of orthostatic hypotension, worsening adrenal insufficiency secondary to noncompliance with all outpatient medications and medical follow up as well as comorbidities of cirrhosis of the liver, esophageal varices, elevated ammonia levels, degenerative arthritis, spinal arthritis, peripheral neuropathy and dehydration. PLAN: Plan at present is to maintain the patient on the cardiac unit on his GI bland diet. He continues on continuous pulse ox checks. He is on aspiration precautions, fall precautions, and neuro checks every shift and is out-of-bed to chair daily with antiembolism stockings being worn a.m. until bedtime. He is ordered to receive physical therapy for ambulation and gait training. He continues on Zofran 4 mg p.o. q. 8 hours p.r.n. nausea and vomiting. His Solu-Cortef has been decreased to 50 mg IV q. 12 which has improved his blood pressure as well as his cortisol levels along with 0.9 saline at a 150 mL/hour which will be dose reduced today to 100 mL/hour. He continues on Remeron 15 mg p.o. at night time, Prozac 20 mg p.o. daily, ProAmatine 10 mg p.o. t.i.d., Neurontin 300 mg p.o. t.i.d., Florinef 0.2 mg p.o. b.i.d., Lactulose 20 g. p.o. b.i.d., cortisone acetate 50 mg p.o. p.m. and 75 p.o. a.m. The patient is ordered to have comprehensive metabolic panel, cortisol level, and ammonia level in the a.m. Based on the physical therapy recommendations social service worker will need to discuss with his insurance company subacute rehabilitation. This can only be accomplished once he is medically and psychiatrically cleared. This will require the clearance of GI, hematology, endocrinology, neurology, and psychiatry. Overall, the prognosis remained poor but stable at present. The patient has long standing history of noncompliance with diet, medication and medical followup in his past. Greater than sixty minutes was spent in the care management and discussion of this patient with all co-consultants, nursing and himself. Prognosis remains poor. Sidra Ann MD MTDDelfnio
--- NOTE | 2017-02-17 20:59 | PN ---
DATE: SUBJECTIVE: This patient was seen and evaluated earlier. The patient did have bowel movements today. PHYSICAL EXAMINATION: GENERAL: No complaints of any abdominal pain. More alert. VITAL SIGNS: Temperature 97.5, blood pressure 113/62, pulse 58. HEENT: Atraumatic and nonicteric. NECK: Supple. HEART: S1 and S2 heard. LUNGS: Bilateral air entry present. ABDOMEN: Soft. There is no tenderness. EXTREMITIES: Bilateral mild edema present. LABORATORY DATA: There is no labs today. IMPRESSION: 1. Decompensated liver disease with a history of a hepatic encephalopathy, on lactulose and Xifaxan, improving. 2. Cirrhosis probably secondary to the ETOH. 3. History of esophageal varices. Last endoscopy over a year ago in [facility]. 4. Other comorbidities include Wilsons's disease. History of anxiety, depression, history of gait dysfunction, history of Guillain-Ruffin syndrome, history of chronic degenerative disc disease. RECOMMENDATIONS: 1. Continue the Xifaxan and also the lactulose. 2. Titrate the dose of the lactulose, presently on lactulose, back on four times a day. It is reasonable to cut down the medication to twice a day as ammonia levels has been doing a downward trend and reevaluate it. Follow up of the electrolytes. Thank you very much for allowing me to participate in the care of the patient. Francisco Javier Navarro MD
--- NOTE | 2017-02-17 21:25 | CON ---
HISTORY OF PRESENT ILLNESS: The patient is a 46-year-old white male with depression who was seen on the medical floor by psychiatry due to depression. This provider has been following up with the patient yesterday and again today and saw him at weekend as well. The patient reports that he continues to be depressed, still feels medically ill and dizzy. He is alert and oriented x3. Denies any hallucinations, coherent with coherent-inconsistent responses. Has been in good control in the unit. Denies any side effect from his medications. Regarding suicidal thoughts, he reports he feels more hopelessness than suicidal. He denies wishes. He denies any thoughts to harm others. State has been up and down, this is stressed over medical issues. Insight and judgment are considered to be fair. Vital signs reviewed. Labs are reviewed. Relevant psychiatric medications include Prozac 20 mg daily, Ativan 0.5 mg p.o. t.i.d., Remeron 15 mg at bedtime and Geodon 20 mg p.o. q. 6 p.r.n. IMPRESSION: The patient has major depressive disorder, rule out mood disorder secondary to general medical condition; history of alcohol use disorder; multiple medical issues. RECOMMENDATIONS: Please continue current management as per Dr. Jolley. The patient will either return to the psychiatric unit for further treatment or be discharged medically and be arrested upon this medical discharge. As noted, probation facility to be contacted in the case. The phone number is in the social work note. Psychiatry will continue to follow up. Please note that this provider dictated the patient's follow up note yesterday; however, it is still not in the computer. Justyna Ryan MD
[2017-02-18 08:13] LABS: ALB/GLOB RATIO 0.8 (1.1-1.8); ALKALINE PHOSPHATASE 45 U/L (38-126); ALT/SGPT 34 U/L (7-56); AST/SGOT 31 U/L (17-59); BILIRUBIN,TOTAL 0.7 mg/dL (0.2-1.3); BLOOD UREA NITROGEN 11 mg/dL (7-21); CALCIUM 8.1 mg/dL (8.4-10.5); CARBON DIOXIDE 30 mmol/L (21-33); CHLORIDE 110 mmol/L (98-107); GFR AFRICAN-AMERICAN > 60; GLUCOSE,RANDOM 110 mg/dL (70-110); POTASSIUM 3.6 mmol/L (3.6-5.0); SODIUM 144 mmol/L (132-148); TOTAL PROTEIN 4.9 g/dL (5.8-8.3)
[2017-02-18] MEDS: Sodium Chloride 0.9% 1,000 ML IV SCH (08:42)
--- NOTE | 2017-02-18 08:53 | CON ---
HISTORY OF PRESENT ILLNESS: The patient is a 46-year-old white male who is being followed by psychiatry, who reports of depression while he is being monitored on the medical floor for low blood pressure and weakness. I reviewed Dr. Jolley's notes which indicate the patient continued to report depression, low energy, not feeling right from medical standpoint. Mood is related to his physical problems which the patient confirms again today. Still does not feel "too good". He denies suicidal process at this time. He is neither hopeful or hopeless and he does not want to . The patient is worried about his medical problems and hopes to improve in that respect. He is coherent. Affect is constricted. He indicates that he did not sleep very well, again due to worry about his medical problems. He is alert and oriented to circumstances, months, year, and location. He responses to relevant questioning. Illusions were not elucidated. His insight and judgment considered to be fair at this time. PHYSICAL EXAMINATION: VITAL SIGNS: 98.1, 15, 94/53, and 19 at 06:00 a.m. this morning. LABORATORY DATA: Labs were reviewed by this provider. MEDICATIONS: Relevant psychiatric medications include Prozac 20 mg daily, Ativan 0.5 mg p.o. t.i.d. p.r.n., Remeron 15 mg p.o. at bedtime scheduled and Geodon 20 mg p.o. q. 6 p.r.n. IMPRESSION: Per history, the patient has major depressive disorder, rule out mood disorder due to general medical condition, history of alcohol use disorder. RECOMMENDATION: To continue current medication management. I reviewed Dr. Jolley's notes, indicating that the patient is on probation and he is not allowed to sign against the medical advice. The patient will either be transferred to the psychiatric unit or be arrested once he is medically cleared. At this time, the patient is not acutely suicidal or hopeless and may not require psychiatric hospitalization once he is medically cleared. We will continue follow up patient and monitor his progress on the unit. Justyna Ryan MD
[2017-02-18] MEDS: CORTISONE PO SCH ×2 (10:33→17:37)
--- NOTE | 2017-02-18 11:29 | CP.PCM.PN ---
<Tamy Irby - Last Filed: 02/18/17 11:27> Subjective - Date & Time of Evaluation Date of Evaluation: 02/18/17 Time of Evaluation: 10:45 - Subjective Subjective: S&E at bedside, chart reviewed, having formed BM, no bleeding reported. No reports of bleeding. No acute overnight events. Objective - Vital Signs/Intake and Output Vital Signs (last 24 hours): Temp Pulse Resp BP Pulse Ox 98.1 F 56 L 20 122/57 L 97 02/18/17 05:55 02/18/17 05:55 02/18/17 05:55 02/18/17 05:55 02/18/17 05:55 Intake and Output: 02/18/17 02/18/17 06:59 18:59 Intake Total 3000 Output Total 650 Balance 2350 - Medications Medications: Current Medications Cortisone Acetate (Cortisone Acetate) 75 mg PO DAILY [facility] Last Admin: 02/18/17 10:33 Dose: 75 mg Cortisone Acetate (Cortisone Acetate) 50 mg PO QPM [facility] Last Admin: 02/17/17 17:21 Dose: 50 mg Fludrocortisone Acetate (Florinef) 0.2 mg PO BID [facility] Last Admin: 02/18/17 10:34 Dose: 0.2 mg Fluoxetine HCl (Prozac) 30 mg PO DAILY [facility] Last Admin: 02/18/17 10:34 Dose: 30 mg Gabapentin (Neurontin) 300 mg PO TID [facility] PRN Reason: Protocol Last Admin: 02/18/17 10:33 Dose: 300 mg Hydrocortisone Sodium Succinate (Solu-Cortef) 50 mg IVP Q12H [facility] Last Admin: 02/18/17 10:32 Dose: 50 mg Sodium Chloride (Sodium Chloride 0.9%) 1,000 mls @ 100 mls/hr IV .Q10H [facility] Last Admin: 02/18/17 08:42 Dose: 100 mls/hr Lactulose (Enulose) 20 gm PO QID [facility] Last Admin: 02/18/17 10:33 Dose: 20 gm Lidocaine (Lidoderm) 1 ea TD DAILY PRN PRN Reason: back pain Last Admin: 02/10/17 09:54 Dose: 1 ea Lorazepam (Ativan) 0.5 mg PO TID PRN; Protocol PRN Reason: Anxiety Midodrine (Proamatine) 10 mg PO TID [facility] Last Admin: 02/18/17 10:34 Dose: 10 mg Mirtazapine (Remeron) 15 mg PO HS [facility] Last Admin: 02/17/17 21:56 Dose: 15 mg Ondansetron HCl (Zofran Tab) 4 mg PO Q8H PRN PRN Reason: Nausea/Vomiting Last Admin: 02/08/17 05:39 Dose: 4 mg Rifaximin (Xifaxan) 550 mg PO BID [facility] PRN Reason: Protocol Last Admin: 02/18/17 11:02 Dose: 550 mg Ziprasidone (Geodon Cap) 20 mg PO Q6H PRN; Protocol PRN Reason: Agitation - Labs Labs: 02/16/17 06:47 02/18/17 07:20 PT 13.4 Seconds (9.9-11.8) H 02/07/17 20:19 INR 1.24 (0.93-1.08) H 02/07/17 20:19 APTT 32.1 Seconds (23.7-30.8) H 02/07/17 20:19 - Constitutional Appears: No Acute Distress - Head Exam Head Exam: NORMOCEPHALIC - Eye Exam Eye Exam: Normal appearance. absent: Scleral icterus - ENT Exam ENT Exam: Mucous Membranes Moist - Neck Exam Neck Exam: Normal Inspection - Respiratory Exam Respiratory Exam: NORMAL BREATHING PATTERN. absent: Respiratory Distress - Cardiovascular Exam Cardiovascular Exam: +S1, +S2 - GI/Abdominal Exam GI & Abdominal Exam: Soft, Normal Bowel Sounds. absent: Guarding, Tenderness, Rebound - Extremities Exam Extremities Exam: Normal Capillary Refill. absent: Calf Tenderness, Pedal Edema - Neurological Exam Neurological Exam: Alert, Awake, Oriented x3 - Skin Skin Exam: Dry, Warm Assessment and Plan - Assessment and Plan (Free Text) Assessment: Assessment: Improving Generalized weakness History of cirrhosis, history of EtOH, hep panel and AFP are negative Hepatic Encephalopathy History of esophageal varices [place]'s disease Hypotension, improved Pancytopenia Depression History of Guillain Ruffin Plan: trend ammonia level on Lactulose QID, consider decrease if ammonia level continue to improve, monitor output Continue Xifaxan on Miadrone Monitor electrolytes Continue diet as tolerated, on soft bland diet as endocrinology FU Seen and discussed with Dr. Navarro <Francisco Javier Navarro V - Last Filed: 02/18/17 19:34> Objective - Vital Signs/Intake and Output Vital Signs (last 24 hours): Temp Pulse Resp BP Pulse Ox 98 F 54 L 20 95/51 L 97 02/18/17 18:49 02/18/17 18:49 02/18/17 18:49 02/18/17 18:49 02/18/17 05:55 - Medications Medications: Current Medications Cortisone Acetate (Cortisone Acetate) 75 mg PO DAILY [facility] Last Admin: 02/18/17 10:33 Dose: 75 mg Cortisone Acetate (Cortisone Acetate) 50 mg PO QPM [facility] Last Admin: 02/18/17 17:37 Dose: 50 mg Fludrocortisone Acetate (Florinef) 0.2 mg PO BID [facility] Last Admin: 02/18/17 17:37 Dose: 0.2 mg Fluoxetine HCl (Prozac) 30 mg PO DAILY [facility] Last Admin: 02/18/17 10:34 Dose: 30 mg Gabapentin (Neurontin) 300 mg PO TID [facility] PRN Reason: Protocol Last Admin: 02/18/17 17:37 Dose: 300 mg Lactulose (Enulose) 20 gm PO QID [facility] Last Admin: 02/18/17 17:37 Dose: 20 gm Lidocaine (Lidoderm) 1 ea TD DAILY PRN PRN Reason: back pain Last Admin: 02/10/17 09:54 Dose: 1 ea Lorazepam (Ativan) 0.5 mg PO TID PRN; Protocol PRN Reason: Anxiety Midodrine (Proamatine) 10 mg PO TID [facility] Last Admin: 02/18/17 17:38 Dose: 10 mg Mirtazapine (Remeron) 15 mg PO HS [facility] Last Admin: 02/17/17 21:56 Dose: 15 mg Ondansetron HCl (Zofran Tab) 4 mg PO Q8H PRN PRN Reason: Nausea/Vomiting Last Admin: 02/08/17 05:39 Dose: 4 mg Rifaximin (Xifaxan) 550 mg PO BID [facility] PRN Reason: Protocol Last Admin: 02/18/17 17:38 Dose: 550 mg Ziprasidone (Geodon Cap) 20 mg PO Q6H PRN; Protocol PRN Reason: Agitation - Labs Labs: 02/16/17 06:47 02/18/17 07:20 PT 13.4 Seconds (9.9-11.8) H 02/07/17 20:19 INR 1.24 (0.93-1.08) H 02/07/17 20:19 APTT 32.1 Seconds (23.7-30.8) H 02/07/17 20:19 Attending/Attestation - Attestation I have personally seen and examined this patient.: Yes I have fully participated in the care of the patient.: Yes I have reviewed all pertinent clinical information, including history, physical exam and plan: Yes Notes (Text): This is an addendum to GI progress report dictated by Tamy Irby APN.The patient was seen and examined earlier. Medical records, lab studies, imagings were reviewed. Last 24 hours events reviewed. Agreed with the above treatment plan as outlined in Tamy Irby NP's notes the with the addition of the following patient had 1 bowel movement on examination abdomen soft no tenderness He still complains of weakness and trying to ambulate. Ammonia level has significantly come down lactulose to twice a day and continue the xifaxan 02/18/17 19:33
--- NOTE | 2017-02-18 13:25 | PN ---
DATE: SUBJECTIVE: The patient is a 46-year-old male with multiple medical issues including cirrhosis, several days history of alcohol use disorder, and history of esophageal varices. The patient also has degenerative arthritis, spinal arthritis, dehydration, and peripheral neuropathy. The patient has also history of Guillain-[place] syndrome and adrenal insufficiency. Please see Dr. Ann's note for more detailed information. Initially, the patient was admitted on the psychiatric inpatient unit, then the patient had low blood pressure and was transferred to the medical site for further assistance. This consumer loan underwriter is following the patient up for the past week. The patient has a history of major depressive disorder. The patient is on Prozac right now. PHYSICAL EXAMINATION: VITAL SIGNS: Reviewed. Pulse is 56, blood pressure 122/57, respirations 20, and saturation is 97. MENTAL STATUS EXAMINATION: The patient appears to be with the constricted affect and intermittent eye contact. Mood described not so good. Affect was more reactive. Mood congruent. Thought process was coherent and goal directed. Thought content, the patient denied visual, auditory, or tactile hallucinations. Denied paranoid ideation. At times, the patient feels hopeless, but denied thoughts of killing himself or others. The patient does not present to the psychotic. Insight and judgment are fair. Impulses are well controlled. MEDICATIONS: Reviewed. Cortisone, Florinef, Prozac 20 mg, which will be increased to 30 today, Neurontin, lactulose, Lidoderm, and Ativan as needed, but the patient did not ask for it. The patient is on ProAmatine 10 mg three times a day. The patient is on Remeron 15 mg at the nighttime, Zofran, sodium chloride, and Geodon for agitation. The patient was not agitated and did not get any Geodon. LABORATORY DATA: Labs reviewed, most recent was from . Chemistry also reviewed, most recent was from from today. The patient was seen by physical therapy team, recommended subacute rehab. IMPRESSION: As per history, the patient has major depressive disorder. The patient also has history of alcohol use disorder, chronic and noncompliance with the medications. The patient has multiple medical comorbidities. Please see above and Dr. Ann's notes for more detailed information. PLAN: we will increase the Prozac to 30 mg a day for depression and anxiety. The patient was seen by physical therapy and recommended subacute rehab. The patient has , which is slow. Blood pressure is still low. At present moment, the patient has multiple medical issues and needed to have more medical attention than psychiatric. The patient at present not in any imminent danger to self or others. The patient is not on one-to-one. As per history, the patient was on probation. At present moment, the patient has warrant for his arrest. The patient cannot discharge against medical advice. Before discharge, the patient's aviation safety officer need to be contacted. The patient needs to be discharged under police custody unless the patient is willing to sign himself into the psychiatric inpatient unit. Should you have any questions, give me a call back. We will follow up with this patient every other day. Thank you very much for letting me to participate in the care of your patient. Lexie Jolley MD
--- NOTE | 2017-02-18 13:25 | PN ---
DATE: 02/18/2017 SUBJECTIVE: This 46-year-old male was examined at his bedside and his case was reviewed in detail with himself, nursing and co-consultants. He remains hospitalized with multiple medical comorbidities including chronic [place]'s disease, orthostatic hypotension secondary to chronic adrenal insufficiency, peripheral neuropathy, spinal arthritis, degenerative arthritis, history of cirrhosis, esophageal varices, and elevated ammonia levels on the setting of bipolar, psychosis, anxiety, depression and recent suicide ideation. The patient has been followed for multiple issues as listed above as well as resolving pancytopenia on the setting of noncompliance with diet, medication and medical followup in his past prior to this hospitalization. At present, the patient is out of bed to chair. He is cooperating with physical therapy. He is ambulate with minimal assist and a rolling walker. PHYSICAL EXAMINATION: VITAL SIGNS: Today, he is in a normal sinus rhythm with a temperature of 98.1, respirations 20, pulse 62, and blood pressure 122/57 with a pulse ox of 97% on room air. HEENT: Head is normocephalic and atraumatic. Eyes: No icterus. NECK: Supple. HEART: Regular S1 and S2. LUNGS: Clear. ABDOMEN: Obese. EXTREMITIES: No edema. SKIN: Without rash. NEUROLOGIC: Intact. PSYCHOLOGICAL: Alert. VASCULAR: Legs are warm to touch. LABORATORY DATA: White count 3900, hemoglobin 12.6, hematocrit 37.2, and platelets 105,000. Sodium 144, K 3.6, chloride 110, bicarb 30, BUN 11, creatinine 0.6. Random blood sugar 110. Bilirubin 0.7, AST 31, ALT 34, alkaline phosphatase 45, ammonia level 20, magnesium level 1.7. Hepatitis A, B, C serology negative. MRSA not detected. Urine culture no growth and CSF fluid no growth. IMPRESSION: A 46-year-old male with issues of adrenal insufficiency, noncompliance with diet, medication and medical followup in his past with chronic orthostatic hypotension, degenerative arthritis, spinal arthritis, cirrhosis of the liver, elevated ammonia levels, improving pancytopenia and psychological issues of bipolar, psychosis, anxiety, depression, and suicidal ideation. PLAN: At present is to clarify with Dr. Di Clarke his current endocrine medication for his adrenal insufficiency which at present is cortisone acetate 75 mg a.m. and 50 mg p.m. and Florinef 0.2 mg p.o. b.i.d. He will continue on Neurontin 300 mg p.o. t.i.d., ProAmatine 10 mg p.o. t.i.d. and she will decide on the timing of discontinuation of Solu-Cortef. The patient also continues on Lactulose 20 g p.o. q.i.d., rifaximin 550 mg p.o. b.i.d under the direction of Dr. Navarro from , and is on hepatic diet, aspiration, fall precautions, neuro checks and physical therapy for ambulation safety. The patient is aware that there is a warrant for his arrest upon clearance for discharge and this will be effected by psychiatry once they have cleared him for possible discharge. All of the above was discussed in detail with the patient at his bedside, nursing, co-consultants. Greater than fifty minutes was spent in the care, management and discussion of this patient today. Sidra Ann MD MTDD
[2017-02-18 13:37] LABS: CORTISOL AM 9.1 ug/dL (4.46-22.7)
--- NOTE | 2017-02-18 19:27 | PN ---
DATE: ENDOCRINOLOGY FOLLOWUP NOTE LOCATION: Room 270. This is a 46-year-old male with recent adrenal insufficiency related to underlying [place]'s disease and had persistent hypotension and was started on IV steroid therapy as noted. His blood pressure systolic levels improved to over 100 mmHg as noted and the patient also improved clinically with increased sense of well being and subsidence of the vertigo and dizziness spells as noted. The latest chemistry showed a BUN of 11, sodium 144, potassium 3.6, chloride 110, CO2 of 30, glucose 110, and creatinine 0.6. His calcium level is 8.1 with an albumin level of 2.1. The initial cortisol level done 2 days ago was 42.8 with a repeat level of 9.1 mg/dL. However, with the low albumin, we could have a correction factor of 13.1, which is already optimal for his degree of metabolic control. We will discontinue the IV steroid therapy at this time and continue the oral steroid replacement therapy as given. We will continue the cortisone acetate given at 75 mg in the morning and 50 mg in the evening as ordered and we will continue also the Florinef given at 0.2 mg b.i.d. after meals as ordered. We will titrate incrementally as indicated to optimize metabolic control. We will follow with you. Di Clarke MD
--- NOTE | 2017-02-19 11:08 | PN ---
ENDOCRINOLOGY FOLLOWUP NOTE DATE: LOCATION: Room 568. 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 He received IV steroids last week because of persistent hypotension with remarkable improvement as noted thereof. His latest chemistry showed a BUN of 11, sodium 144, potassium 3.6, chloride 110, CO2 of 30, glucose 110, and creatinine 0.6. His serum cortisol level is 9.1 with a corrected factor because of the very low albumin of 2.1 and is actually 13.1 as noted. So, at this time, we will recommend the same dual oral hypoadrenalism regimen with cortisone acetate given at 75 mg in the morning and 50 mg in the evening with Florinef given at 0.2 mg b.i.d. With a low normal potassium may eventually just need Florinef at 0.1 mg b.i.d. upon discharge. We will obtain serial chemistries and supplement accordingly as needed. We will follow. Di Clarke MD
[2017-02-19] MEDS: CORTISONE PO SCH ×2 (11:31→18:05)
--- NOTE | 2017-02-19 11:34 | PN ---
DATE: SUBJECTIVE: The patient was seen today. The patient presented to be pale and weak. Blood pressure is 83/35, pulse is 58. The patient said that he feels dizzy, lightheaded when tried to ambulate. At present moment, this web content writer had impression that the patient needs further stabilization on the medical side, but of course, this is up to the medical team, but from this web content writer perspective, the patient needs to address medical issues before making determination about psychiatric admission. The patient reports that his mood is so-so, but the patient adamantly denied thoughts of killing himself or others. The patient has transient feeling of hopelessness in regards to his medical condition as well as relationship with a girlfriend. Besides that, the patient denied hearing voices, denied seeing things. The patient presents no imminent danger to self or others. Appetite is good. The patient eats 100% of his meal. PHYSICAL EXAMINATION: VITAL SIGNS: This web content writer mentioned above, temperature 98.3, pulse is 58, blood pressure is 83/35 overnight, oxygen saturation is 95%. MEDICATIONS: Reviewed. The patient is on Prozac, which was increased yesterday, Remeron at the nighttime. This web content writer will hold Remeron because it could give low blood pressure. LABORATORY DATA: Reviewed. WBC is 3.9 and it was on . Chemistry reviewed. MENTAL STATUS EXAMINATION: The patient appears to be pale and weak. The patient was seen in his bed. The patient reported that he feels lightheaded and dizzy when he tried to ambulate. Mood described as so-so. Affect constricted. Mood congruent. Thought process was coherent and goal directed. Thought content: The patient denied visual, auditory or tactile hallucinations. Denied paranoid ideations. The patient denied thoughts of harming himself or others. Denies intents or plan. Insight and judgement is improving. Impulses are well controlled. IMPRESSION: As per history, the patient has bipolar disorder. The patient has multiple medical issues including generalized weakness, history of cirrhosis, history of alcohol use disorder. The patient had esophageal varices, [place]'s disease, hypotension, pancytopenia, depression, history of Guillain-barre syndrome. PLAN: Physical therapy needs to evaluate the patient on 02/16/2017. The patient was advised to have subacute rehab based on presentation. The patient still has lightheadedness and dizziness. Blood pressure was very low overnight, 83/35. The patient still has bradycardia at 58. Continue current management. We need to make determination about disposition plan, but from the psychiatric standpoint, the patient denied any thoughts of killing himself or others. The patient pose no imminent danger to self or others and mood symptoms are related to the medical issues. We changed first, but of course, medical team needs to make final decision. At the same time, physical therapy needs to follow the patient. From discharge perspective, the patient not in imminent danger to self or others. If physical therapy recommend the patient to go to subacute rehab, I think it will be proper disposition plan. In regards of probation as well as for arrest, the patient first needs to complete the treatment. After that, the patient needs to be discharged under police custody. Should you have any questions, give me a call back. Thank you very much for letting me to participate in the care of your patient. Leixe Jolley MD
--- NOTE | 2017-02-19 12:35 | CP.PCM.PN ---
<Tamy Irby - Last Filed: 02/19/17 12:34> Subjective - Date & Time of Evaluation Date of Evaluation: 02/19/17 Time of Evaluation: 10:10 - Subjective Subjective: S&E at bedside, chart reviewed, Had formed BM yesterday, no reports of overt GI bleeding. No acute overnight events reported. Objective - Vital Signs/Intake and Output Vital Signs (last 24 hours): Temp Pulse Resp BP Pulse Ox 98.4 F 52 L 20 96/54 L 96 02/19/17 07:30 02/19/17 07:30 02/19/17 07:30 02/19/17 07:30 02/19/17 07:30 Intake and Output: 02/19/17 02/19/17 06:59 18:59 Intake Total 260 Output Total 1000 500 Balance -1000 -240 - Medications Medications: Current Medications Cortisone Acetate (Cortisone Acetate) 75 mg PO DAILY [facility] Last Admin: 02/19/17 11:31 Dose: 75 mg Cortisone Acetate (Cortisone Acetate) 50 mg PO QPM [facility] Last Admin: 02/18/17 17:37 Dose: 50 mg Fludrocortisone Acetate (Florinef) 0.2 mg PO BID [facility] Last Admin: 02/19/17 10:50 Dose: 0.2 mg Fluoxetine HCl (Prozac) 30 mg PO DAILY [facility] Last Admin: 02/19/17 10:49 Dose: 30 mg Gabapentin (Neurontin) 300 mg PO TID [facility]KEEL PRN Reason: Protocol Last Admin: 02/19/17 10:50 Dose: 300 mg Lactulose (Enulose) 20 gm PO Q4H [facility] Last Admin: 02/19/17 10:49 Dose: 20 gm Lidocaine (Lidoderm) 1 ea TD DAILY PRN PRN Reason: back pain Last Admin: 02/10/17 09:54 Dose: 1 ea Lorazepam (Ativan) 0.5 mg PO TID PRN; Protocol PRN Reason: Anxiety Midodrine (Proamatine) 10 mg PO TID [facility] Last Admin: 02/19/17 10:51 Dose: 10 mg Ondansetron HCl (Zofran Tab) 4 mg PO Q8H PRN PRN Reason: Nausea/Vomiting Last Admin: 02/08/17 05:39 Dose: 4 mg Rifaximin (Xifaxan) 550 mg PO BID [facility] PRN Reason: Protocol Last Admin: 02/19/17 10:50 Dose: 550 mg Ziprasidone (Geodon Cap) 20 mg PO Q6H PRN; Protocol PRN Reason: Agitation - Labs Labs: 02/16/17 06:47 02/18/17 07:20 PT 13.4 Seconds (9.9-11.8) H 02/07/17 20:19 INR 1.24 (0.93-1.08) H 02/07/17 20:19 APTT 32.1 Seconds (23.7-30.8) H 02/07/17 20:19 - Constitutional Appears: No Acute Distress - Head Exam Head Exam: NORMOCEPHALIC - Eye Exam Eye Exam: Normal appearance. absent: Scleral icterus - ENT Exam ENT Exam: Mucous Membranes Moist - Neck Exam Neck Exam: Normal Inspection - Respiratory Exam Respiratory Exam: NORMAL BREATHING PATTERN. absent: Respiratory Distress - Cardiovascular Exam Cardiovascular Exam: +S1, +S2 - GI/Abdominal Exam GI & Abdominal Exam: Soft, Normal Bowel Sounds. absent: Guarding, Tenderness, Rebound - Extremities Exam Extremities Exam: absent: Calf Tenderness, Pedal Edema - Skin Skin Exam: Dry, Warm Assessment and Plan - Assessment and Plan (Free Text) Assessment: Assessment: Improving Generalized weakness History of cirrhosis, history of EtOH, hep panel and AFP are negative Hepatic Encephalopathy History of esophageal varices [place]'s disease Hypotension Pancytopenia Depression History of Guillain Ruffin Plan: trend ammonia level on Lactulose QID Continue Xifaxan on Miadrone Monitor electrolytes Continue diet as tolerated, on soft bland diet as per endocrinology FU Seen and discussed with Dr. Navarro <Francisco Javier Navarro V - Last Filed: 02/19/17 23:54> Objective - Vital Signs/Intake and Output Vital Signs (last 24 hours): Temp Pulse Resp BP Pulse Ox 98.2 F 66 20 87/36 L 96 02/19/17 16:00 02/19/17 16:00 02/19/17 16:00 02/19/17 16:00 02/19/17 16:00 Intake and Output: 02/19/17 02/20/17 18:59 06:59 Intake Total 560 480 Output Total 500 Balance 60 480 - Medications Medications: Current Medications Cortisone Acetate (Cortisone Acetate) 75 mg PO DAILY [facility] Last Admin: 02/19/17 11:31 Dose: 75 mg Cortisone Acetate (Cortisone Acetate) 50 mg PO QPM [facility] Last Admin: 02/19/17 18:05 Dose: 50 mg Fludrocortisone Acetate (Florinef) 0.2 mg PO BID [facility] Last Admin: 02/19/17 18:06 Dose: 0.2 mg Fluoxetine HCl (Prozac) 30 mg PO DAILY [facility] Last Admin: 02/19/17 10:49 Dose: 30 mg Gabapentin (Neurontin) 300 mg PO TID SHAKEEL PRN Reason: Protocol Last Admin: 02/19/17 18:05 Dose: 300 mg Lactulose (Enulose) 20 gm PO Q4H [facility] Last Admin: 02/19/17 21:30 Dose: 20 gm Lidocaine (Lidoderm) 1 ea TD DAILY PRN PRN Reason: back pain Last Admin: 02/10/17 09:54 Dose: 1 ea Lorazepam (Ativan) 0.5 mg PO TID PRN; Protocol PRN Reason: Anxiety Midodrine (Proamatine) 10 mg PO TID [facility] Last Admin: 02/19/17 18:06 Dose: 10 mg Ondansetron HCl (Zofran Tab) 4 mg PO Q8H PRN PRN Reason: Nausea/Vomiting Last Admin: 02/08/17 05:39 Dose: 4 mg Rifaximin (Xifaxan) 550 mg PO BID [facility] PRN Reason: Protocol Last Admin: 02/19/17 18:06 Dose: 550 mg Ziprasidone (Geodon Cap) 20 mg PO Q6H PRN; Protocol PRN Reason: Agitation - Labs Labs: 02/16/17 06:47 02/18/17 07:20 PT 13.4 Seconds (9.9-11.8) H 02/07/17 20:19 INR 1.24 (0.93-1.08) H 02/07/17 20:19 APTT 32.1 Seconds (23.7-30.8) H 02/07/17 20:19 Attending/Attestation - Attestation I have personally seen and examined this patient.: Yes I have fully participated in the care of the patient.: Yes I have reviewed all pertinent clinical information, including history, physical exam and plan: Yes Notes (Text): 02/19/17 23:54 p
--- NOTE | 2017-02-19 14:22 | PN ---
DATE: 02/19/2017 SUBJECTIVE: This 46-year-old male was examined at his bedside. His case was reviewed in detail with himself, nursing, social service and co-consultants. He remains hospitalized awaiting acceptance for psychiatric inpatient unit and he is awaiting physical therapy evaluation for ambulation safety. The patient also has a warrant for his arrest and according to social worker school is not candidate for subacute rehab. I did ask nursing to review this with case management as well. At present, the patient is alert, oriented, tolerating diet and medication. PHYSICAL EXAMINATION: VITAL SIGNS: His temperature is 98.4, respirations 20, pulse 52, and blood pressure 96/54 with a pulse ox of 100% on room air. HEENT: Head is normocephalic and atraumatic. Eyes: No icterus. NECK: Supple. HEART: Regular S1 and S2. LUNGS: Clear. ABDOMEN: Obese. EXTREMITIES: No edema. SKIN: Without rash. NEUROLOGIC: Intact. PSYCHOLOGICAL: Alert and oriented x3. VASCULAR: Legs are warm to touch. LABORATORY DATA: White count 3900, hemoglobin 12.6, hematocrit 37.2, and platelets 105,000. Sodium 144, K 3.6, chloride 110, bicarbonate 30, BUN 11, and creatinine 0.6. Random blood sugar 110. Bilirubin 0.7, AST 31, ALT 34, and alkaline phosphatase 45. Ammonia level yesterday 20 and today 46. IMPRESSION: A 46-year-old male with multiple medical problems as previously outlined including psychiatric diagnoses of bipolar, psychosis, anxiety, depression, and suicidal ideation in the past, also with chronic [place]'s disease, cortisol insufficiency, cirrhosis of the liver with elevated ammonia level and chronic orthostatic hypotension, peripheral neuropathy, and history of noncompliance with diet, medication and medical followup in his past. At present, he will continue on cortisone acetate 75 mg p.o. a.m. and 50 mg p.o. q. p.m. I have increased his lactulose to 20 g p.o. q. 4 hours and he continues on rifaximin 550 mg p.o. b.i.d. as recommended by GI. He continues on Florinef 0.2 mg p.o. b.i.d., Neurontin 300 mg p.o. t.i.d., ProAmatine 10 mg p.o. t.i.d. and Prozac 30 mg p.o. daily as recommended by psychiatry. He is ordered to have a soft bland diet, aspiration and fall precaution, neuro checks, daily physical therapy, and disposition will be decided based on all of the above issues. I have asked the nursing staff to document if patient should refuse therapy or any medication. He will be evaluated by social service to determine his disposition. There is a warrant for his arrest and it is unclear if he is going to the psychiatric unit, subacute rehab or alf. All of this was discussed in detail with patient, nursing, co-consultants, case management, and approximately fifty minutes was spent in the care, management, discussion and counseling of the patient today. Sidra Ann MD GIOVANNY
[2017-02-20] MEDS: CORTISONE PO SCH ×2 (09:14→17:33)
--- NOTE | 2017-02-20 10:49 | CP.PCM.PN ---
<Tamy Irby - Last Filed: 02/20/17 10:39> Subjective - Date & Time of Evaluation Date of Evaluation: 02/20/17 Time of Evaluation: 10:29 - Subjective Subjective: S&E at bedside, chart reviewed, had formed BM yesterday, No overt GI bleeding. He still gets dizzy at times and occasional RUQ discomfort. No N/V, tolerating oral intake , appetite "OK". No acute overnight events. Objective - Vital Signs/Intake and Output Vital Signs (last 24 hours): Temp Pulse Resp BP Pulse Ox 98.1 F 50 L 20 127/69 98 02/20/17 08:25 02/20/17 08:25 02/20/17 08:25 02/20/17 08:25 02/20/17 08:25 Intake and Output: 02/20/17 02/20/17 06:59 18:59 Intake Total 720 Output Total 700 Balance 20 - Medications Medications: Current Medications Cortisone Acetate (Cortisone Acetate) 75 mg PO DAILY [facility] Last Admin: 02/20/17 09:14 Dose: 75 mg Cortisone Acetate (Cortisone Acetate) 50 mg PO QPM [facility] Last Admin: 02/19/17 18:05 Dose: 50 mg Fludrocortisone Acetate (Florinef) 0.2 mg PO BID [facility] Last Admin: 02/20/17 09:15 Dose: 0.2 mg Fluoxetine HCl (Prozac) 30 mg PO DAILY [facility] Last Admin: 02/20/17 09:15 Dose: 30 mg Gabapentin (Neurontin) 300 mg PO TID SHAKE[facility] PRN Reason: Protocol Last Admin: 02/20/17 09:15 Dose: 300 mg Lactulose (Enulose) 20 gm PO Q4H [facility] Last Admin: 02/20/17 09:18 Dose: 20 gm Lidocaine (Lidoderm) 1 ea TD DAILY PRN PRN Reason: back pain Last Admin: 02/10/17 09:54 Dose: 1 ea Lorazepam (Ativan) 0.5 mg PO TID PRN; Protocol PRN Reason: Anxiety Midodrine (Proamatine) 10 mg PO TID [facility] Last Admin: 02/20/17 09:15 Dose: 10 mg Ondansetron HCl (Zofran Tab) 4 mg PO Q8H PRN PRN Reason: Nausea/Vomiting Last Admin: 02/08/17 05:39 Dose: 4 mg Rifaximin (Xifaxan) 550 mg PO BID [facility] PRN Reason: Protocol Last Admin: 02/20/17 09:15 Dose: 550 mg Ziprasidone (Geodon Cap) 20 mg PO Q6H PRN; Protocol PRN Reason: Agitation - Labs Labs: 02/16/17 06:47 02/18/17 07:20 PT 13.4 Seconds (9.9-11.8) H 02/07/17 20:19 INR 1.24 (0.93-1.08) H 02/07/17 20:19 APTT 32.1 Seconds (23.7-30.8) H 02/07/17 20:19 - Constitutional Appears: No Acute Distress - Head Exam Head Exam: NORMOCEPHALIC - Eye Exam Eye Exam: Normal appearance. absent: Scleral icterus - ENT Exam ENT Exam: Mucous Membranes Moist - Respiratory Exam Respiratory Exam: NORMAL BREATHING PATTERN. absent: Respiratory Distress - Cardiovascular Exam Cardiovascular Exam: +S1, +S2 - GI/Abdominal Exam GI & Abdominal Exam: Soft, Normal Bowel Sounds. absent: Guarding, Tenderness, Organomegaly, Rebound - Extremities Exam Extremities Exam: Normal Capillary Refill. absent: Calf Tenderness, Pedal Edema - Neurological Exam Neurological Exam: Alert, Awake, Oriented x3 - Skin Skin Exam: Dry, Warm Assessment and Plan - Assessment and Plan (Free Text) Assessment: Assessment: Improving Generalized weakness History of cirrhosis, history of EtOH, hep panel and AFP are negative Hepatic Encephalopathy History of esophageal varices Farhad's disease Resolved Hypotension Pancytopenia Depression History of Guillain Ruffin Plan: trend ammonia level Lactulose increased to Q4 hrs Continue Xifaxan on Miadrone Monitor electrolytes Continue diet as tolerated, on soft bland diet as per endocrinology FU Discuss w/ Dr. Ann continue Xifaxine,lactulose, patient reports daily formed BM but ammonia level fluctuate. Seen and discussed with Dr. Navarro <Francisco Javier Navarro V - Last Filed: 02/20/17 23:52> Objective - Vital Signs/Intake and Output Vital Signs (last 24 hours): Temp Pulse Resp BP Pulse Ox 99.1 F 55 L 20 98/61 L 96 02/20/17 16:00 02/20/17 16:00 02/20/17 16:00 02/20/17 16:00 02/20/17 16:00 Intake and Output: 02/20/17 02/21/17 18:59 06:59 Intake Total 600 720 Output Total 500 Balance 100 720 - Medications Medications: Current Medications Cortisone Acetate (Cortisone Acetate) 75 mg PO DAILY [facility] Last Admin: 02/20/17 09:14 Dose: 75 mg Cortisone Acetate (Cortisone Acetate) 50 mg PO QPM [facility] Last Admin: 02/20/17 17:33 Dose: 50 mg Fludrocortisone Acetate (Florinef) 0.2 mg PO BID [facility] Last Admin: 02/20/17 17:32 Dose: 0.2 mg Fluoxetine HCl (Prozac) 40 mg PO DAILY [facility] Gabapentin (Neurontin) 300 mg PO TID SHAKEEL PRN Reason: Protocol Last Admin: 02/20/17 17:33 Dose: 300 mg Lactulose (Enulose) 20 gm PO Q4H [facility] Last Admin: 02/20/17 21:08 Dose: 20 gm Lidocaine (Lidoderm) 1 ea TD DAILY PRN PRN Reason: back pain Last Admin: 02/10/17 09:54 Dose: 1 ea Lorazepam (Ativan) 0.5 mg PO TID PRN; Protocol PRN Reason: Anxiety Midodrine (Proamatine) 10 mg PO TID [facility] Last Admin: 02/20/17 17:33 Dose: 10 mg Ondansetron HCl (Zofran Tab) 4 mg PO Q8H PRN PRN Reason: Nausea/Vomiting Last Admin: 02/08/17 05:39 Dose: 4 mg Rifaximin (Xifaxan) 550 mg PO BID [facility] PRN Reason: Protocol Last Admin: 02/20/17 17:33 Dose: 550 mg Ziprasidone (Geodon Cap) 20 mg PO Q6H PRN; Protocol PRN Reason: Agitation - Labs Labs: 02/16/17 06:47 02/18/17 07:20 PT 13.4 Seconds (9.9-11.8) H 02/07/17 20:19 INR 1.24 (0.93-1.08) H 02/07/17 20:19 APTT 32.1 Seconds (23.7-30.8) H 02/07/17 20:19 Attending/Attestation - Attestation I have personally seen and examined this patient.: Yes I have fully participated in the care of the patient.: Yes I have reviewed all pertinent clinical information, including history, physical exam and plan: Yes Notes (Text): This is an addendum to GI progress report dictated by Tamy Irby APN.The patient was seen and examined earlier. Medical records, lab studies, imagings were reviewed. Last 24 hours events reviewed. Agreed with the above treatment plan as outlined in Tamy Irby APN's notes the with the addition of the following on lactulose q4hr as there is slight increase in ammonia level On Xifaxan Continue the present management history of decompensated cirrhosis with hepatic encephalopathy Archer's disease 02/20/17 20:50
--- NOTE | 2017-02-20 17:23 | PN ---
DATE: 02/20/2017 SUBJECTIVE: This 46-year-old male was examined at the bedside. The case was discussed in detail with nurse, Tamy Irby at the nursing station as well as social service Dasia Jennings, case management and nursing. The patient remains hospitalized. It needs to be decided his disposition. It is unclear, if he will be going to the psychiatric [facility] at the [facility], subacute rehab, or intermediate. I have asked Dasia Jennings from social service to investigate all of his options with my preference being subacute rehab, if the patient has been cleared by Dr. Lexie Jolley. Apparently she has cleared him for discharge according to her medical reports. The patient is alert and oriented. He is denying any chest pain, shortness of breath, fever, or chills. He remains morbidly obese and deconditioned on a chronic basis from his multiple medical comorbidities as previously outlined. PHYSICAL EXAMINATION VITAL SIGNS: At present with temperature of 98.1, respirations of 20, pulse of 66, and blood pressure of 127/69 and previously 130/68 with a pulse ox of 100% on room air. HEENT: Head is normocephalic and atraumatic. Eyes, no icterus. NECK: Supple. HEART: S1 and S2. LUNGS: Clear. ABDOMEN: Obese. EXTREMITIES: No edema. SKIN: Without rash. NEUROLOGICAL: Unchanged. PSYCHOLOGICAL: Alert and oriented x3. VASCULAR: Legs are warm to touch. EXTREMITIES: He is wearing antiembolism stockings at present. LABORATORY DATA: White count 3900; hemoglobin 12.6; hematocrit 37.2; platelets 105,000. Sodium 144, potassium 3.6, chloride 110, bicarb 30, BUN 11, creatinine 0.6, random blood sugar 110. Ammonia levels range between 20 and 45. Cortisol level 9.1. Hepatitis A, B, C serology negative. Urine culture, no growth. MRSA not detected. CSF spinal fluid, no growth. IMPRESSION: This is a 46-year-old male with multiple medical problems, having been admitted with bipolar psychosis, anxiety, depression, and suicidal ideation and now cleared by Dr. Lexie Jolley for any suicidal or homicidal intent at present with comorbidities of chronic adrenal insufficiency, chronic orthostatic hypotension, morbid obesity, chronic; degenerative arthritis; spinal arthritis; history of Guillain De Peyster syndrome; deconditioning; elevated ammonia levels; alcoholic cirrhosis with esophageal varices; and pancytopenia secondary to alcoholic toxicity in this patient with history of noncompliance and active alcohol ab PLAN: At present,as discussed with the patient, nursing, social service, case management, and co-consultants is to continue cortisone acetate 75 mg p.o. a.m. and 50 mg p.o. q.p.m., lactulose 20 g p.o. q.4 hours, Florinef 0.2 mg p.o. b.i.d., Neurontin 300 mg p.o. t.i.d., ProAmatine 10 mg p.o. t.i.d., Prozac 30 mg p.o. daily, rifaximin 550 mg p.o. b.i.d. His is ordered to be on a hepatic soft bland diet. He remains on fall precautions and neuro check every shift. He is out of bed to chair with assistance and is ordered to have physical therapy for ambulation safety. He will have a repeat ammonia level in the a.m. I will await the recommendations of case management and social service regarding his disposition. All the above was discussed with the patient, who is aware and in agreement with the above. His overall prognosis remains poor, given his multisystem failure, multiple medical comorbidities, and history of noncompliance in his past. Greater than sixty minutes was spent in the management and counselling of this patient today. Sidra Ann MD MTDD
--- NOTE | 2017-02-20 19:44 | PN ---
ENDO FOLLOWUP NOTE LOCATION: Room 568, 5 Page. SUBJECTIVE: This is a 46-year-old male with recent persistent hypotension and stabilized below normal systolic blood pressures of 90 mmHg as noted. He has improved clinically and metabolically as noted with enhanced sense of well being and stopping of events of the dizziness and lightheadedness as noted. His latest chemistries showed BUN of 11, sodium 144, potassium 3.6, chloride 110, CO2 30, glucose 110 and creatinine 0.6. His serum cortisol is now 9.1 mcg/dL. So at this time, we will continue the oral steroid therapy as given with cortisone acetate, given 75 mg every morning and 50 mg every evening as ordered. We will titrate incrementally as indicated to optimize metabolic control. We will also continue the Florinef at the lower dose of 0.1 mg b.i.d. as given. We will obtain serial chemistries and supplement accordingly as needed. We will also obtain serial cortisol levels as ordered. We will follow the patient. Di Clarke MD
--- NOTE | 2017-02-20 21:27 | PN ---
SUBJECTIVE: The patient is a 46-year-old male, history of bipolar disorder. The patient was seen today for followup. The patient presented the same way. The patient reported that he feels a little bit better in regards of his medical condition. The patient said that he is not happy with his life which is going not to the right direction. The patient has transient thoughts of but denied any intent or plan to kill himself. The patient does not have any psychotic symptoms as per staff. The patient eats 100% of his meal. Does not have any behavioral disturbances. PHYSICAL EXAMINATION: VITAL SIGNS: This ad writer reviewed vital signs. Vital signs seems to be better, temperature 98.1, pulse is 58, blood pressure is 121/69, respiration 20, oxygen saturation is 98%. MEDICATIONS: Reviewed. The patient will be increased with Prozac today to 40 mg. LABORATORY DATA: Reviewed. Chemistry reviewed. Reports reviewed. MENTAL STATUS EXAMINATION: The patient presented to be alert, oriented, pleasant, cooperative, intermittent eye contact. Speech was normal rate, tone, quality and quantity. Thought process seems to be goal directed, coherent. Thought content: The patient denied thoughts of killing himself or others, transient of thoughts of being but denied any plan or intent to kill himself. The patient described his mood as being depressed and not happy with his life. Affect was constricted but reactive. Mood congruent. Insight and judgement is fair. Impulses are well controlled. IMPRESSION: Rule-out bipolar disorder, rule-out major depressive disorder, rule-out mood disorder due to general medical condition. Please see medical team note for more detailed information about medical problems the patient has. PLAN: From perspective, the patient does not meet criteria for acute psychiatric inpatient hospitalization. The patient is on antidepressants. The patient has good appetite and sleep. There are no signs of psychosis. The patient has multiple medical issues which could contribute to the patient presentation. Meanwhile, the patient is well, sleeps well, there are no acute psychotic symptoms. The patient pose no imminent danger to self or others. After discharge, the patient needs to be released under the police custody, the patient is aware of that. The patient was not on one-to-one on the medical side. Discussed with the social security specialist. We will followup and advise accordingly. Thank you very much for letting me to participate in the care of your patient. Should they have any questions, give me a call back. Lexie Jolley MD
[2017-02-21 08:02] LABS: ALB/GLOB RATIO 0.8 (1.1-1.8); ALKALINE PHOSPHATASE 48 U/L (38-126); ALT/SGPT 43 U/L (7-56); AST/SGOT 35 U/L (17-59); BILIRUBIN,TOTAL 1.4 mg/dL (0.2-1.3); BLOOD UREA NITROGEN 12 mg/dL (7-21); CALCIUM 7.9 mg/dL (8.4-10.5); CARBON DIOXIDE 30 mmol/L (21-33); CHLORIDE 106 mmol/L (98-107); GFR AFRICAN-AMERICAN > 60; GLUCOSE,RANDOM 81 mg/dL (70-110); SODIUM 141 mmol/L (132-148); TOTAL PROTEIN 4.9 g/dL (5.8-8.3)
[2017-02-21 08:05] LABS: POTASSIUM 3.3 mmol/L (3.6-5.0)
[2017-02-21] MEDS: CORTISONE PO SCH ×2 (10:02→17:23)
[2017-02-21 12:51] LABS: CORTISOL AM 1.3 ug/dL (4.46-22.7)
[2017-02-21] MEDS ORDERED: Potassium Chloride 20 mEq ER Tab PO ONE (13:30)
--- NOTE | 2017-02-21 15:30 | PN ---
SUBJECTIVE: The patient was followed up today. The patient presented well. The patient has future oriental plans. The patient was evaluated by physical therapist and recommended subacute rehab; the patient was in agreement with that plan. The patient denied feeling of hopelessness or helplessness. The patient reported that he has no thoughts of killing himself or others. Denied intents or plan. Denied hearing voices. Denied seeing things. Appetite is good. There are no behavioral issues. MEDICATIONS: Reviewed. The patient is on Prozac 40 mg daily. The patient is on Neurontin 300 mg three times day and the rest is medical indications. LABORATORY DATA: Reviewed today. Most recent was on . MENTAL STATUS EXAMINATION: The patient alert and oriented, pleasant and cooperative. Affect is more reactive. Mood congruent. Mood described as "I feel better". Thought process was coherent and goal directed. Thought content: The patient denied visual, auditory or tactile hallucinations. Denied paranoid ideations. The patient denied thoughts of harming himself or others. Denies intents or plan. Insight and judgement is improving. Impulses are well controlled. IMPRESSION: As per history, the patient has major depressive disorder. The patient also has history of anxiety, alcohol abuse, rule out mood disorder due to general medical condition. PLAN: Continue current management. The patient is on Prozac, which he needs to be continued, 40 mg a day. The patient most likely will go to subacute rehab. The patient pose no threat to self or others. No imminent danger to self or others. The patient needs to be seen by psychiatrist in subacute rehab. As of now, the patient is doing well. There is no indication for the patient to go back to the psychiatric inpatient unit. The patient does not have history of aggression or agitation. The patient is compliant with the medication, pleasant, cooperative. Before discharge, the patient major gifts officer needs to be contacted. social worker aide, case management know about that. This typewriter repairer will sign off. Should you have any questions, give me a call back. Thank you very much for letting me to participate in the care of your patient. Lexie Jolley MD [facility] # [id number]
--- NOTE | 2017-02-21 17:28 | CP.PCM.PN ---
<Tamy Irby - Last Filed: 02/21/17 17:25> Subjective - Date & Time of Evaluation Date of Evaluation: 02/21/17 Time of Evaluation: 10:10 - Subjective Subjective: Seen and examined at the bedside earlier today, patient denies nausea, vomiting , or abdominal pain he reports having 1 bowel movement yesterday that is formed , denies diarrhea or any bleeding per rectum. His ammonia level today is at 65 , yesterday his level was at 47,which is noticed to be trending upward, the patient is already on lactulose every 4 hours as well as Xifaxan. The patient reports compliance with these medications. Objective - Vital Signs/Intake and Output Vital Signs (last 24 hours): Temp Pulse Resp BP Pulse Ox 98.3 F 59 L 20 102/61 98 02/21/17 08:03 02/21/17 13:57 02/21/17 08:03 02/21/17 13:57 02/21/17 08:03 Intake and Output: 02/21/17 02/21/17 06:59 18:59 Intake Total 720 580 Output Total 1200 Balance 720 -620 - Medications Medications: Current Medications Cortisone Acetate (Cortisone Acetate) 75 mg PO DAILY [facility] Last Admin: 02/21/17 10:02 Dose: 75 mg Cortisone Acetate (Cortisone Acetate) 50 mg PO QPM [facility] Last Admin: 02/20/17 17:33 Dose: 50 mg Fludrocortisone Acetate (Florinef) 0.1 mg PO BID [facility] Fluoxetine HCl (Prozac) 40 mg PO DAILY [facility] Last Admin: 02/21/17 10:03 Dose: 40 mg Gabapentin (Neurontin) 300 mg PO TID [facility] PRN Reason: Protocol Last Admin: 02/21/17 10:02 Dose: 300 mg Lactulose (Enulose) 20 gm PO Q4H [facility] Last Admin: 02/21/17 13:51 Dose: 20 gm Lidocaine (Lidoderm) 1 ea TD DAILY PRN PRN Reason: back pain Last Admin: 02/10/17 09:54 Dose: 1 ea Midodrine (Proamatine) 10 mg PO TID [facility] Last Admin: 02/21/17 13:52 Dose: 10 mg Ondansetron HCl (Zofran Tab) 4 mg PO Q8H PRN PRN Reason: Nausea/Vomiting Last Admin: 02/08/17 05:39 Dose: 4 mg Rifaximin (Xifaxan) 550 mg PO BID [facility] PRN Reason: Protocol Last Admin: 02/21/17 10:03 Dose: 550 mg Ziprasidone (Geodon Cap) 20 mg PO Q6H PRN; Protocol PRN Reason: Agitation - Labs Labs: 02/16/17 06:47 02/21/17 07:25 PT 13.4 Seconds (9.9-11.8) H 02/07/17 20:19 INR 1.24 (0.93-1.08) H 02/07/17 20:19 APTT 32.1 Seconds (23.7-30.8) H 02/07/17 20:19 - Constitutional Appears: No Acute Distress - Head Exam Head Exam: NORMOCEPHALIC - Eye Exam Eye Exam: Normal appearance. absent: Scleral icterus - ENT Exam ENT Exam: Mucous Membranes Moist - Neck Exam Neck Exam: Normal Inspection - Respiratory Exam Respiratory Exam: NORMAL BREATHING PATTERN. absent: Respiratory Distress - Cardiovascular Exam Cardiovascular Exam: +S1, +S2 - GI/Abdominal Exam GI & Abdominal Exam: Soft, Normal Bowel Sounds. absent: Distended (obese), Guarding, Tenderness, Rebound - Extremities Exam Extremities Exam: Normal Capillary Refill. absent: Calf Tenderness, Pedal Edema - Neurological Exam Neurological Exam: Alert, Awake, Oriented x3 - Skin Skin Exam: Dry, Warm Assessment and Plan - Assessment and Plan (Free Text) Assessment: Assessment: History of cirrhosis, history of EtOH, hep panel and AFP are negative Hepatic Encephalopathy History of esophageal varices Farhad's disease Resolved Hypotension Pancytopenia Depression History of Guillain Ruffin Plan: trend ammonia level continue Lactulose Q4 hrs Continue Xifaxan on Miadrone Monitor electrolytes Continue diet as tolerated, on soft bland diet as per endocrinology FU Patient ammonia level is at 65, which is increasing, the patient is already on lactulose 6 times a day as well as Xifaxan there is a question of compliance, I have discussed with SUKI Alvarez as well as Dr. Ann the concern, request nursing staff to observe patient taking lactulose. Patient is AAO, no asterxis is assessed. Seen and discussed with Dr. Navarro <Francisco Javier Navarro V - Last Filed: 02/22/17 00:29> Objective - Vital Signs/Intake and Output Vital Signs (last 24 hours): Temp Pulse Resp BP Pulse Ox 99.3 F 61 20 97/53 L 95 02/21/17 16:00 02/21/17 16:00 02/21/17 16:00 02/21/17 16:00 02/21/17 16:00 Intake and Output: 02/21/17 02/22/17 18:59 06:59 Intake Total 580 540 Output Total 1200 675 Balance -620 -135 - Medications Medications: Current Medications Cortisone Acetate (Cortisone Acetate) 75 mg PO DAILY [facility] Last Admin: 02/21/17 10:02 Dose: 75 mg Cortisone Acetate (Cortisone Acetate) 50 mg PO QPM [facility] Last Admin: 02/21/17 17:23 Dose: 50 mg Fludrocortisone Acetate (Florinef) 0.1 mg PO BID [facility] Last Admin: 02/21/17 17:24 Dose: 0.1 mg Fluoxetine HCl (Prozac) 40 mg PO DAILY [facility] Last Admin: 02/21/17 10:03 Dose: 40 mg Gabapentin (Neurontin) 300 mg PO TID [facility] PRN Reason: Protocol Last Admin: 02/21/17 17:23 Dose: 300 mg Lactulose (Enulose) 20 gm PO Q4H [facility] Last Admin: 02/21/17 21:54 Dose: 20 gm Lidocaine (Lidoderm) 1 ea TD DAILY PRN PRN Reason: back pain Last Admin: 02/10/17 09:54 Dose: 1 ea Midodrine (Proamatine) 10 mg PO TID [facility] Last Admin: 02/21/17 17:23 Dose: 10 mg Ondansetron HCl (Zofran Tab) 4 mg PO Q8H PRN PRN Reason: Nausea/Vomiting Last Admin: 02/08/17 05:39 Dose: 4 mg Rifaximin (Xifaxan) 550 mg PO BID [facility] PRN Reason: Protocol Last Admin: 02/21/17 17:23 Dose: 550 mg Ziprasidone (Geodon Cap) 20 mg PO Q6H PRN; Protocol PRN Reason: Agitation - Labs Labs: 02/16/17 06:47 02/21/17 07:25 PT 13.4 Seconds (9.9-11.8) H 02/07/17 20:19 INR 1.24 (0.93-1.08) H 02/07/17 20:19 APTT 32.1 Seconds (23.7-30.8) H 02/07/17 20:19 Attending/Attestation - Attestation I have personally seen and examined this patient.: Yes I have fully participated in the care of the patient.: Yes I have reviewed all pertinent clinical information, including history, physical exam and plan: Yes Notes (Text): This is an addendum to GI progress report dictated by Tamy Irby APN.The patient was seen and examined earlier. Medical records, lab studies, imagings were reviewed. Last 24 hours events reviewed. Agreed with the above treatment plan as outlined in Tamy Irby APN's notes the with the addition of the following on examination abdomen soft and there is no masses no tenderness The concern is the ammonia level and the very high dose of lactulose on scheduled along with his attacks and we need to closely monitor the patient taking the medication Follow-up of the ammonia level
--- NOTE | 2017-02-21 20:02 | PN ---
DATE: 02/21/2017 PROGRESS NOTE SUBJECTIVE: This 46-year-old male was examined at his bed side. His case was reviewed with himself, nursing, co-consultants, social service and case management. At present, the patient is waiting for a disposition decision. He has been rejected for transfer to psychiatric units and psychiatry feels the patient is no longer threat for himself or others. The patient remains weak and deconditioned. He has a warrant for his arrest, however, he is in need of subacute rehab and this will need to be decided by insurance and case management. The patient also is not taking all prescribed medication due to noncompliance and I have asked the nursing staff to document in their notes any medication that he does not take. This was discussed with gastroenterology as well since he has a history of advanced cirrhosis and the lack of compliance with his lactulose has elevated ammonia levels most recently to 65 with normal being 33 or less. This is despite ordering his lactulose q.4 hours as well as rifaximin 550 mg p.o. b.i.d. This was discussed with the patient in detail. The patient also has a longstanding history of noncompliance with diet, medications, medical follow up in his past. He was actively drinking alcohol prior to admission! PHYSICAL EXAMINATION: GENERAL: At the present time, he denies any fever, chills, chest pain or shortness of breath. VITAL SIGNS: Temperature is 98.3, respirations 20, pulse 55, and blood pressure 122/76 with a pulse ox of 98% on room air. HEENT: Head is normocephalic, atraumatic. Eyes, no icterus. Ears clear. Throat is non-injected. NECK: Supple. HEART: Regular, S1 and S2. LUNGS: Clear. ABDOMEN: Obese. EXTREMITIES: No edema. He is not wearing his anti-embolism stockings. VASCULAR: Legs are warm to touch. LABORATORY DATA: Show sodium 141, K 3.3, chloride 106, bicarbonate 30, BUN 12, creatinine 0.5. Random blood sugar is 81. Bilirubin 1.4, AST 35, ALT 43, and alkaline phosphatase 48. White count 3900, hemoglobin 12.6, platelets 105, hepatitis A, B, C serology negative. 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 PLAN: At present is to wait disposition. He continues on cortisone 75 mg p.o. a.m., cortisone 50 mg p.o. q.p.m., lactulose 20 g p.o. q.4 hours, Florinef 0.1 mg p.o. b.i.d., Neurontin 300 mg p.o. t.i.d., ProAmatine 10 mg p.o. t.i.d, Prozac 40 mg p.o. daily, rifaximin 550 mg p.o. b.i.d. He is on a soft bland hepatic diet. He remains on fall precautions, neuro checks every shift and ordered to be out of bed daily. I have asked the nursing staff to reapply his anti-embolism stockings from morning to bedtime. He is worked at physical therapy daily and ultimate plan will be for discharge to subacute rehab when the bed is available. It should be noted that the patient has a warrant for his arrest. Social service has been discussing this with his warrant officer and the patient is aware of this as well. Overall prognosis remains poor because of history of multiple medical problems, comorbidities and noncompliance. Greater than sixty minutes were spent in his care, management, counseling and discussion of this patient with himself, nursing, co-consultants, social service and case management. Sidra Ann MD [facility]
--- NOTE | 2017-02-22 08:14 | PN ---
ENDOCRINOLOGY FOLLOWUP NOTE LOCATION: Room #568. SUMMARY: This is a 46-year-old male with recent hypoadrenalism, persistent hypotension, and Montgomery's both clinically and metabolically as noted thereof. He received a brief course of IV steroid therapy microbiologic workup as mentioned. His latest WBC is higher at 3.9 with a hemoglobin of 12.6, hematocrit of 37.2. His latest chemistry showed a BUN of 12, sodium 141, potassium 3.3, chloride 106, CO2 of 30, glucose 321, creatinine 0.5. His serum cortisol level done today was surprisingly very low at 1.3 mcg/dL very low albumin of 2.1 and correction factor of 4 making the level actually less, 5.3 mcg/dL. So at this time, we will continue the dual steroid therapy as given with cortisone acetate given as 75 mg in the morning and 60 mg in the evening as ordered. We will continue the Florinef with a modified lower dose of 0.1 mg b.i.d. with ProAmatine given as 10 mg t.i.d. as ordered. We will titrate incrementally as indicated to optimize metabolic control. We will follow and advise accordingly. Di Clarke MD
[2017-02-22] MEDS: CORTISONE PO SCH ×2 (09:40→18:02)
--- NOTE | 2017-02-22 14:39 | PN ---
DATE: 02/22/2017 SUBJECTIVE: This 46-year-old male who was examined at his bedside. His case was reviewed in detail with himself, his nurse, Tina Petit, registered nurse, case management and social service Jaymie Jennings. The patient at present is awaiting disposition, social service has spoken to subacute rehab facilities for placement of this patient, they are requesting clarification regarding his warrant to determine if he is appropriate for admission at their facility. Jaymie Jennings remains in contact with the patient's plant protection officer and is trying to satisfy this concern. The patient is receiving daily physical therapy. When I examined him today, he was not wearing antiembolism stockings, I brought this up to the attention of his nurse, Tina Petit who states she will apply the stockings for antiembolism protection and blood pressure support immediately. I have also discussed with the patient and his nurse that is imperative that he will be out of bed to chair every morning and in preparation for physical therapy ambulation safety. PHYSICAL EXAMINATION: VITAL SIGNS: At present; temperature is 97.9, respirations 18, pulse 61, and blood pressure 105/58 with a pulse ox of 97% room air. HEENT: Head is normocephalic and atraumatic. Eyes: No icterus. Ears: Clear. Throat: Noninjected. NECK: Supple. HEART: Regular S1 and S2. LUNGS: Clear. ABDOMEN: Obese and nontender. EXTREMITIES: No clubbing, no cyanosis, and no edema. SKIN: Without rash. NEUROLOGICAL: Unchanged. PSYCHOLOGICAL: Alert and oriented x3. VASCULAR: Legs warm to touch. LABORATORY DATA: White count 3900, hemoglobin 12.6, hematocrit 37.2, and platelets 105,000. Sodium 141, K 3.3, chloride 106, bicarb 30, BUN 12, creatinine 0.5, and random blood sugar 81. Bilirubin 1.4, AST 35, ALT 43, and alk phos 48. Ammonia levels normal at 33, normal being 33 or less. Hepatitis A, B, and C serology is negative. 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 PLAN: The plan at present is to await disposition. He continues on daily physical therapy for reconditioning and gait training. He continues on fall precautions and neuro checks every shift. He is also receiving a soft bland hepatic diet and is also receiving rifaximin 550 mg b.i.d., Prozac 40 mg p.o. daily, ProAmatine 10 mg p.o. t.i.d., Neurontin 300 mg p.o. t.i.d., and I am rechecking potassium level this morning. He continues on Florinef 0.1 mg p.o. b.i.d., cortisone acetate 75 mg p.o. a.m., 50 mg p.o. q.p.m. under the direction of Dr. Di Clarke from endocrinology along with lactulose 20 g p.o. q.4 hours under the direction of Dr. Navarro from GI. He is ordered to have a repeat ammonia level in the morning. When his disposition status is clarified, he will be transferred either to subacute rehab or group home and all of the above has been discussed in detail with the patient, nursing, case management, social service and co-consultants. Greater than 60 minutes was spent in the care management, discussion, and counseling of this patient today. Sidra Ann MD MTDDelfino
[2017-02-22 16:19] VITALS: BP 119/68; PULSE 78; RESP 20; TEMP 98.7; O2SAT 96
[2017-02-22] MEDS ORDERED: Potassium Chloride 20 mEq ER Tab PO ONE (17:48)
--- NOTE | 2017-02-22 18:07 | CP.PCM.PN ---
<Estrada Leonard - Last Filed: 02/22/17 18:09> Subjective - Date & Time of Evaluation Date of Evaluation: 02/22/17 Time of Evaluation: 18:04 - Subjective Subjective: GI: Dr. Navarro Pt seen and examined. Resting comfortably in bed. Pt is ambulating limitedly, continues to feel weak. Tolerating diet. Averaging 1 BM/day. No N/V. Objective - Vital Signs/Intake and Output Vital Signs (last 24 hours): Temp Pulse Resp BP Pulse Ox 98.7 F 78 20 119/68 96 02/22/17 16:18 02/22/17 16:18 02/22/17 16:18 02/22/17 16:18 02/22/17 16:18 Intake and Output: 02/22/17 02/22/17 06:59 18:59 Intake Total 540 500 Output Total 675 1200 Balance -135 -700 - Medications Medications: Current Medications Cortisone Acetate (Cortisone Acetate) 75 mg PO DAILY [facility] Last Admin: 02/22/17 09:40 Dose: 75 mg Cortisone Acetate (Cortisone Acetate) 50 mg PO QPM [facility] Last Admin: 02/21/17 17:23 Dose: 50 mg Fludrocortisone Acetate (Florinef) 0.1 mg PO BID [facility] Last Admin: 02/22/17 09:40 Dose: 0.1 mg Fluoxetine HCl (Prozac) 40 mg PO DAILY [facility] Last Admin: 02/22/17 09:40 Dose: 40 mg Gabapentin (Neurontin) 300 mg PO TID [facility] PRN Reason: Protocol Last Admin: 02/22/17 15:00 Dose: 300 mg Lactulose (Enulose) 20 gm PO Q4H [facility] Last Admin: 02/22/17 15:00 Dose: 20 gm Lidocaine (Lidoderm) 1 ea TD DAILY PRN PRN Reason: back pain Last Admin: 02/10/17 09:54 Dose: 1 ea Midodrine (Proamatine) 10 mg PO TID [facility] Last Admin: 02/22/17 15:00 Dose: 10 mg Ondansetron HCl (Zofran Tab) 4 mg PO Q8H PRN PRN Reason: Nausea/Vomiting Last Admin: 02/08/17 05:39 Dose: 4 mg Rifaximin (Xifaxan) 550 mg PO BID [facility] PRN Reason: Protocol Last Admin: 02/22/17 09:40 Dose: 550 mg Ziprasidone (Geodon Cap) 20 mg PO Q6H PRN; Protocol PRN Reason: Agitation - Labs Labs: 02/16/17 06:47 02/22/17 13:30 PT 13.4 Seconds (9.9-11.8) H 02/07/17 20:19 INR 1.24 (0.93-1.08) H 02/07/17 20:19 APTT 32.1 Seconds (23.7-30.8) H 02/07/17 20:19 - Constitutional Appears: Non-toxic, No Acute Distress - Head Exam Head Exam: ATRAUMATIC, NORMOCEPHALIC - Eye Exam Eye Exam: EOMI. absent: Scleral icterus - ENT Exam ENT Exam: Mucous Membranes Moist - Neck Exam Neck Exam: Full ROM - Respiratory Exam Respiratory Exam: NORMAL BREATHING PATTERN. absent: Accessory Muscle Use, Respiratory Distress - GI/Abdominal Exam GI & Abdominal Exam: Soft. absent: Distended, Firm, Guarding, Rigid, Tenderness , Rebound - Extremities Exam Extremities Exam: Pedal Edema. absent: Calf Tenderness Additional comments: B/L UE asterixis - Neurological Exam Neurological Exam: Alert, Awake, Oriented x3 - Psychiatric Exam Psychiatric exam: Normal Affect, Normal Mood - Skin Skin Exam: Dry, Normal Color, Warm Assessment and Plan - Assessment and Plan (Free Text) Assessment: 46M w. History of cirrhosis, history of EtOH, hep panel and AFP are negative, Hepatic Encephalopathy, History of esophageal varices, Dallas's disease -ammonia level trending down, continue to monitor -c/w Lactulose Q4 hrs -c/w Xifaxan -Continue diet as tolerated -d/w attending Zeradhaitis PGY3 <Francisco Javier Navarro V - Last Filed: 02/24/17 08:47> Objective - Vital Signs/Intake and Output Vital Signs (last 24 hours): Temp Pulse Resp BP Pulse Ox 98.7 F 78 20 119/68 96 02/22/17 16:18 02/22/17 16:18 02/22/17 16:18 02/22/17 16:18 02/22/17 16:18 Intake and Output: 02/22/17 02/23/17 18:59 06:59 Intake Total 500 Output Total 1200 Balance -700 - Labs Labs: 02/16/17 06:47 02/22/17 13:30 PT 13.4 Seconds (9.9-11.8) H 02/07/17 20:19 INR 1.24 (0.93-1.08) H 02/07/17 20:19 APTT 32.1 Seconds (23.7-30.8) H 02/07/17 20:19 Attending/Attestation - Attestation I have personally seen and examined this patient.: Yes I have fully participated in the care of the patient.: Yes I have reviewed all pertinent clinical information, including history, physical exam and plan: Yes Notes (Text): This is an addendum to GI progress report dictated by resident.The patient was seen and examined earlier. Medical records, lab studies, imagings were reviewed. Last 24 hours events reviewed. Agreed with the above treatment plan as outlined in resident's notes the with the addition of the following on examination patient is alert oriented abdomen soft no tenderness on high dose of lactulose and Xifaxan ccontinue that . Decompensated cirrhosis with the hepatic encephalopathy. Patient has a multiple comorbidities Need close long-term follow-up 02/23/17 00:0
--- NOTE | 2017-02-23 02:06 | PN ---
ENDOCRINOLOGY FOLLOWUP NOTE LOCATION: Room 568. SUBJECTIVE: This is a 46-year-old male with known history of Farhad disease and recent adrenal insufficiency and started on IV steroid therapy and is currently now on oral steroid therapy as given. His latest chemistry showed a BUN of 12, sodium 141, potassium 3.3, chloride 106, CO2 of 30, glucose 81, and creatinine 0.5. His last serum cortisol is 1.3 with a correction factor of 4 making it actually 5.3 mcg/dL. He continues to have low albumin levels as noted. We will continue at this time the oral steroid replacement therapy with cortisone acetate given as 75 mg in the morning and 50 mg in the evening as ordered. We will titrate incrementally as indicated to optimize metabolic control. We will follow the patient. Di Clarke MD
--- NOTE | 2017-02-24 21:31 | DS ---
DISPOSITION: [facility] in [place], [place]. The patient was cleared by all consultants for discharge. DISCHARGE DIET: Soft, bland, hepatic. DISCHARGE MEDICATIONS: Rifaximin 550 mg p.o. b.i.d., Prozac 40 mg p.o. daily, ProAmatine 10 mg p.o. t.i.d., Neurontin 300 mg p.o. t.i.d. the patient was given K-Dur 40 mEq p.o. x1 dose prior to discharge. He will need a potassium level in the morning, Florinef 0.1 mg p.o. b.i.d., cortisone acetate 75 mg a.m., 50 mg p.o. q.p.m., lactulose 20 g p.o. q. 4 hours. His nurse was advised to order a potassium level for the am at his subacute rehab. SUMMARY: This is 46-year-old male is being discharged to the [facility] [place] for subacute rehab with diagnoses of bipolar psychosis, anxiety, depression, chronic adrenal insufficiency, morbid obesity, chronic alcoholic cirrhosis, chronic alcoholism, esophageal varices, pancytopenia probably secondary to bone marrow, alcohol toxicity, chronic orthostatic hypotension, degenerative arthritis, spinal arthritis, peripheral neuropathy, elevated ammonia levels and history of noncompliance with diet, medication and medical followup in his past. The patient was seen during this hospital stay by consultants from Neurology, Endocrinology, Gastroenterology, surgery and Psychiatry. At the time of discharge, he was medically cleared by all consultants for discharge to subacute rehab. DISCHARGE PHYSICAL EXAMINATION: VITAL SIGNS: Temperature 98.7, respirations 20, pulse 78, blood pressure 119/68 with a pulse ox of 96% room air. DISCHARGE LAB: Show white count 3900, hemoglobin 12.6, hematocrit 37.2, platelets 105,000. Sodium 141, K 3.1. The patient was given 40 mEq of p.o. K-Dur and ordered to have a repeat potassium level for followup dosing in the a.m., chloride 106, bicarb 30, BUN 12, creatinine 0.5, random blood sugar 81. Bilirubin 1.4, AST 35, ALT 43, alk phos 48. Ammonia level 33. The patient was cleared for discharge by all consultants especially endocrinology who commented his corrected cortisol level at the time of discharge is actually 5.3 mcg per decaliter. The patient will need close outpatient followup by consultants as listed above. His overall prognosis remains poor. He has a warrant for his arrest upon completion of subacute rehab and all of the above was discussed in detail with the patient at his bedside. Sidra Ann MD MTDD
== END 2017-02-22 21:46 | DRG 552 ==
LOC: EDSEX → ED 19:32 → ERH 02-08 02:04 → CCU 02-08 03:27 → 2RSO 02-11 21:32 → 5RNO 02-19 01:42
PROVIDERS: ADMIT Internal Medicine; ATTEND Internal Medicine
DX: M51.36 Other intervertebral disc degeneration, lumbar region (principal); R53.1 Weakness; D61.818 Other pancytopenia; G61.0 Guillain-Barre syndrome; I85.10 Secondary esophageal varices without bleeding; E27.1 Primary adrenocortical insufficiency; R45.851 Suicidal ideations; Z68.42 Body mass index [BMI] 45.0-49.9, adult; E83.42 Hypomagnesemia; E66.01 Morbid (severe) obesity due to excess calories; G62.9 Polyneuropathy, unspecified; R16.2 Hepatomegaly with splenomegaly, not elsewhere classified; F25.9 Schizoaffective disorder, unspecified; K70.30 Alcoholic cirrhosis of liver without ascites; K72.90 Hepatic failure, unspecified without coma; F10.20 Alcohol dependence, uncomplicated; F31.9 Bipolar disorder, unspecified; F41.1 Generalized anxiety disorder; K29.20 Alcoholic gastritis without bleeding; E07.81 Sick-euthyroid syndrome; M51.34 Other intervertebral disc degeneration, thoracic region; E86.0 Dehydration; K59.00 Constipation, unspecified; M19.90 Unspecified osteoarthritis, unspecified site; M50.30 Other cervical disc degeneration, unspecified cervical region; H54.7 Unspecified visual loss; F17.210 Nicotine dependence, cigarettes, uncomplicated; Z91.19 Patient's noncompliance with other medical treatment and regimen; Z91.11 Patient's noncompliance with dietary regimen; Z91.14 Patient's other noncompliance with medication regimen; Z98.1 Arthrodesis status